=== PATIENT | female | born 1955 | race Caucasian/White ===

== ENCOUNTER → 2017-01-23 | Outpatient (CLI) | payer MEDICARE, OTHER ==
--- NOTE | 2017-01-24 08:51 | MR ---
EXAMINATION TYPE: MR cervical spine wo/w con DATE OF EXAM: 01/23/2017 5:11 PM COMPARISON: NONE HISTORY: Neck, Shoulder Pain, Headaches, x1 Year CONTRAST: The patient was injected with 20 mL intravenous MultiHance gadolinium contrast. Multiplanar MultiSpin echo imaging of the cervical spine was performed. Examination slightly limited by patient motion. C2-C3: No evidence for degenerative disc disease. No disc bulge/herniation or protrusion. No Canal stenosis. Foramina are patent bilaterally. C3-C4: No evidence for degenerative disc disease. No disc bulge/herniation or protrusion. No Canal stenosis. Foramina are patent bilaterally. C4-C5: There is mild disc desiccation. Mild posterior disc bulge. No herniation protrusion or central stenosis. Foramina are patent bilaterally. C5-C6: No evidence for degenerative disc disease. No disc bulge/herniation or protrusion. No Canal stenosis. Foramina are patent bilaterally. C6-C7:There is mild disc desiccation. Mild posterior disc bulge. No herniation protrusion or central stenosis. Foramina are patent bilaterally. C7-T1: No evidence for degenerative disc disease. No disc bulge/herniation or protrusion. No Canal stenosis. Foramina are patent bilaterally. No cervical spine fracture. There is normal alignment. Cervical spinal cord is of normal signal. C raniovertebral junction relationships are within normal limits. No pathologic enhancement. IMPRESSION: 1. Mild disc desiccation and disc bulging as noted above.
== END | disposition home or self-care (01) ==
LOC: RADMRIMAIN 15:52
PROVIDERS: ATTEND Internal Medicine
DX: M50.221 Other cervical disc displacement at C4-C5 level (principal)
CPT/HCPCS: 72156; A9577

== ENCOUNTER 2024-05-05 16:30 | Inpatient (IN) | payer MEDICARE ==
[2024-05-05 17:13] LABS: Basophils % (A) 0 %; Eosinophils # (A) 0.1 k/uL (0-0.7); Eosinophils % (A) 1 %; HCT 49.4 % (34.0-46.0); HGB 15.1 gm/dL (11.4-16.0); Hypochromasia Marked; Lymphocytes # (A) 1.2 k/uL (1.0-4.8); Lymphocytes % (A) 18 %; MCH 32.7 pg (25.0-35.0); MCHC 30.4 g/dL (31.0-37.0); MCV 107.4 fL (80.0-100.0); Macrocytosis Moderate; Mean Platelet Volume 7.5; Monocytes # (A) 0.3 k/uL (0-1.0); Monocytes % (A) 5 %; Neutrophils # (A) 5.1 k/uL (1.3-7.7); Neutrophils % (A) 75 %; Platelet Count 146 k/uL (150-450); RDW 13.2 % (11.5-15.5); WBC 6.8 k/uL (3.8-10.6)
[2024-05-05] MEDS: SODIUM CHLORIDE 0.9% 1,000 ML IV STA (17:15)
[2024-05-05] MEDS: methylPREDNISolone SOD SUCCI 125 MG/2 ML VIAL IV STA (17:16)
[2024-05-05] MEDS: AZITHROMYCIN 500 MG in SODIUM CHLORIDE 0.9% 250 ML IVPB STA (17:18)
--- NOTE | 2024-05-05 17:22 | ED ---
SOB HPI - General Chief Complaint: Shortness of Breath Stated Complaint: AIMEE Time Seen by Provider: 05/05/24 16:38 Source: patient, RN notes reviewed, old records reviewed Mode of arrival: EMS Limitations: no limitations - History of Present Illness Initial Comments: This is a 69-year-old female coming in for extreme shortness of breath she feels like she may feel warmer with fever but has increased cough and congestion and shortness of breath and presents to the ER for that. No travel history no sick contacts no other complaints MD Complaint: shortness of breath, cough -: days(s) Radiation: back Severity: moderate Severity scale (1-10): 4 Quality: dull, aching Consistency: constant Improves With: nothing Worsens With: exertion Known History Of: COPD, asthma - Related Data Home Medications Medication Instructions Recorded Confirmed Albuterol Sulfate [Albuterol 2 puff PO RT-QID PRN 05/05/24 05/05/24 Sulfate Hfa] Budesonide [Pulmicort] 0.5 mg INHALATION RT-BID 05/05/24 05/05/24 Ergocalciferol (Vitamin D2) 1,250 mcg PO Q7D 05/05/24 05/05/24 [Drisdol (50,000 Iu)] Escitalopram [Lexapro] 10 mg PO HS 05/05/24 05/05/24 Gabapentin [Neurontin] 300 mg PO TID 05/05/24 05/05/24 HYDROcodone/APAP 10-325MG [[place] 1 tab PO TID 05/05/24 05/05/24 10-325] Ipratropium-Albuterol Nebulize 3 ml INHALATION RT-TID 05/05/24 05/05/24 [Duoneb 0.5 mg-3 mg/3 ml Soln] Latanoprost [Latanoprost 0.005%] 1 drop BOTH EYES HS 05/05/24 05/05/24 Montelukast [Singulair] 10 mg PO HS 05/05/24 05/05/24 Omeprazole [PriLOSEC] 20 mg PO BID 05/05/24 05/05/24 Temazepam [Restoril] 15 mg PO HS 05/05/24 05/05/24 tiZANidine HCL 8 mg PO BID 05/05/24 05/05/24 Allergies Allergy/AdvReac Type Severity Reaction Status Date / Time No Known Allergies Allergy Verified 05/05/24 18:44 Review of Systems ROS Statement: Those systems with pertinent positive or pertinent negative responses have been documented in the HPI. ROS Other: All systems not noted in ROS Statement are negative. Past Medical History Past Medical History: Asthma, COPD, Rheumatoid Arthritis (RA) History of Any Multi-Drug Resistant Organisms: None Reported Past Surgical History: Joint Replacement, Orthopedic Surgery Past Psychological History: No Psychological Hx Reported Smoking Status: Current every day smoker Past Alcohol Use History: None Reported Past Drug Use History: Marijuana General Exam Limitations: no limitations General appearance: alert, in no apparent distress Head exam: Present: atraumatic, normocephalic, normal inspection Eye exam: Present: normal appearance, PERRL, EOMI. Absent: scleral icterus, conjunctival injection, periorbital swelling ENT exam: Present: normal exam, mucous membranes moist Neck exam: Present: normal inspection. Absent: tenderness, meningismus, lymphadenopathy Respiratory exam: Present: normal lung sounds bilaterally. Absent: respiratory distress, wheezes, rales, rhonchi, stridor Cardiovascular Exam: Present: regular rate, normal rhythm, normal heart sounds. Absent: systolic murmur, diastolic murmur, rubs, gallop, clicks GI/Abdominal exam: Present: soft, normal bowel sounds. Absent: distended, tenderness, guarding, rebound, rigid Extremities exam: Present: normal inspection, full ROM, normal capillary refill. Absent: tenderness, pedal edema, joint swelling, calf tenderness Back exam: Present: normal inspection Neurological exam: Present: alert, oriented X3, CN II-XII intact Psychiatric exam: Present: normal affect, normal mood Skin exam: Present: warm, dry, intact, normal color. Absent: rash Course Vital Signs 05/05/24 05/05/24 05/05/24 16:48 17:53 18:18 Temperature 98 F Pulse Rate 93 90 97 Respiratory 26 H 20 Rate Blood Pressure 134/74 134/84 O2 Sat by Pulse 88 L 94 L Oximetry 05/05/24 05/05/24 05/05/24 18:30 19:09 19:18 Temperature Pulse Rate 96 96 100 Respiratory 20 Rate Blood Pressure 150/100 O2 Sat by Pulse 94 L Oximetry 10/06/24 10/06/24 10/07/24 21:14 22:28 00:58 Temperature Pulse Rate 90 94 100 Respiratory 24 20 Rate Blood Pressure 150/100 160/88 O2 Sat by Pulse 94 L 90 L 92 L Oximetry 05/06/24 05/06/24 05/06/24 02:45 04:00 06:12 Temperature Pulse Rate 90 92 82 Respiratory 22 20 20 Rate Blood Pressure 171/95 168/110 152/74 O2 Sat by Pulse 91 L 94 L 94 L Oximetry 05/06/24 05/06/24 05/06/24 08:46 08:58 10:18 Temperature 98.5 F Pulse Rate 86 84 93 Respiratory 18 18 20 Rate Blood Pressure 149/89 O2 Sat by Pulse 94 L Oximetry 05/06/24 05/06/24 05/06/24 11:52 12:02 12:16 Temperature Pulse Rate 90 90 95 Respiratory 18 18 20 Rate Blood Pressure 142/74 O2 Sat by Pulse 92 L Oximetry 05/06/24 05/06/24 05/06/24 16:17 19:19 20:05 Temperature Pulse Rate 81 87 80 Respiratory 22 18 Rate Blood Pressure 153/64 138/72 O2 Sat by Pulse 94 L 89 L Oximetry 05/06/24 20:24 Temperature Pulse Rate 87 Respiratory Rate Blood Pressure O2 Sat by Pulse Oximetry - Reevaluation(s) Reevaluation #1: 05/05/24 17:22 Medical records reviewed Reevaluation #2: 05/05/24 17:22 Patient symptoms mildly improved Reevaluation #3: 05/05/24 17:37 Patient has no improvement here in the ER Reevaluation #4: 05/05/24 17:22 Was pt. sent in by a medical professional or institution (, PA, [employer], urgent care, hospital, or usp...) When possible be specific @ -no Did you speak to anyone other than the patient for history (EMS, parent, family, police, friend...)? What history was obtained from this source @ -no Did you review nursing and triage notes (agree or disagree)? Why? @ -agree Are old charts reviewed (outside hosp., previous admission, EMS record, old EKG, old radiological studies, urgent care reports/EKG's, usp records)? Report findings @ -yes Differential Diagnosis (chest pain, altered mental status, abdominal pain women, abdominal pain men, vaginal bleeding, weakness, fever, dyspnea, syncope, headache, dizziness, GI bleed, back pain, seizure, CVA, palpatations, mental health, musculoskeletal)? @ -prior EKG interpreted by me (3pts min.). @ -yes X-rays interpreted by me (1pt min.). @ -yes negative for acute disease CT interpreted by me (1pt min.). @ -no U/S interpreted by me (1pt. min.). @ -no What testing was considered but not performed or refused? (CT, X-rays, U/S, labs)? Why? @ -none What meds were considered but not given or refused? Why? @ -none Did you discuss the management of the patient with other professionals (professionals i.e. , PA, [employer], lab, RT, psych nurse, social economist, wiener packer, teacher, special technical operations officer, case management assistant)? Give summary @ -no Was smoking cessation discussed for >3mins.? @ -no Was critical care preformed (if so, how long)? @ -yes31 Were there social determinants of health that impacted care today? How? (Homelessness, low income, unemployed, alcoholism, drug addiction, transportation, low edu. Level, literacy, decrease access to med. care, shelter, rehab)? @ -none Was there de-escalation of care discussed even if they declined (Discuss DNR or withdrawal of care, Hospice)? DNR status @ -no What co-morbidities impacted this encounter? (DM, HTN, Smoking, COPD, CAD, Cancer, CVA, ARF, Chemo, Hep., AIDS, mental health diagnosis, sleep apnea, morbid obesity)? @ -none Was patient admitted / discharged? Hospital course, mention meds given and route, prescriptions, significant lab abnormalities, going to OR and other pertinent info. @ - 69 female to be admitted for multifactorial respiratory failure COPD CHF with hypoxia Admitted Undiagnosed new problem with uncertain prognosis? @ -no Drug Therapy requiring intensive monitoring for toxicity (Heparin, Nitro, Insulin, Cardizem)? @ -no Were any procedures done? @ -no Diagnosis/symptom? @ -significant respiratory distress and COPD Acute, or Chronic, or Acute on Chronic? @ -Acute Uncomplicated (without systemic symptoms) or Complicated (systemic symptoms)? @ -Complicated Side effects of treatment? @ -no Exacerbation, Progression, or Severe Exacerbation? @ -exacerbation Poses a threat to life or bodily function? How? (Chest pain, [place], [place], pneumonia, PE, COPD, DKA, ARF, appy, cholecystitis, CVA, Diverticulitis, Homicidal, Suicidal, threat to staff... and all critical care pts) @ -yes respiratory distress Reevaluation #5: Differential Dyspnea: Coronary syndrome, arrhythmia, tamponade, asthma, COPD, pulmonary embolism, pneumonia, pneumothorax, pulmonary effusion, anaphylaxis, diabetic ketoacidosis, flailed chest, pulmonary contusion, diaphragmatic rupture, anemia, neuromuscular, this is not meant to be an all-inclusive list. - Consultations Consultation #1: Spoke with Dr. Bryant who agrees to admit the patient Medical Decision Making - Medical Decision Making 69 female to be admitted for multifactorial respiratory failure COPD CHF with hypoxia - Lab Data Result diagrams: 05/11/24 03:39 05/11/24 03:39 Lab Results 05/05/24 05/05/24 05/05/24 Range/Units 16:55 16:59 16:59 WBC 6.8 (3.8-10.6) k/uL RBC 4.60 (3.80-5.40) m/uL Hgb 15.1 (11.4-16.0) gm/dL Hct 49.4 H (34.0-46.0) % MCV 107.4 H (80.0-100.0) fL MCH 32.7 (25.0-35.0) pg MCHC 30.4 L (31.0-37.0) g/dL RDW 13.2 (11.5-15.5) % Plt Count 146 L (150-450) k/uL MPV 7.5 Neutrophils % 75 % Lymphocytes % 18 % Monocytes % 5 % Eosinophils % 1 % Basophils % 0 % Neutrophils # 5.1 (1.3-7.7) k/uL Lymphocytes # 1.2 (1.0-4.8) k/uL Monocytes # 0.3 (0-1.0) k/uL Eosinophils # 0.1 (0-0.7) k/uL Basophils # 0.0 (0-0.2) k/uL Hypochromasia Marked Macrocytosis Moderate PT 11.0 (10.0-12.5) sec INR 1.0 (<1.2) APTT 25.5 (22.0-30.0) sec Sodium (137-145) mmol/L Potassium (3.5-5.1) mmol/L Chloride (98-107) mmol/L Carbon Dioxide (22-30) mmol/L Anion Gap mmol/L BUN (7-17) mg/dL Creatinine (0.52-1.04) mg/dL Est GFR (CKD-EPI)AfAm (>60 ml/min/1.73 sqM) Est GFR (CKD-EPI)NonAf (>60 ml/min/1.73 sqM) Glucose (74-99) mg/dL Plasma Lactic Acid Atul (0.7-2.0) mmol/L Calcium (8.4-10.2) mg/dL Magnesium (1.6-2.3) mg/dL Total Bilirubin (0.2-1.3) mg/dL AST (14-36) U/L ALT (4-34) U/L Alkaline Phosphatase (38-126) U/L Troponin I (0.000-0.034) ng/mL NT-Pro-B Natriuret Pep pg/mL Total Protein (6.3-8.2) g/dL Albumin (3.5-5.0) g/dL Influenza Type A (PCR) Not Detected (Not Detectd) Influenza Type B (PCR) Not Detected (Not Detectd) RSV (PCR) Not Detected (Not Detectd) SARS-CoV-2 (PCR) Not Detected (Not Detectd) 05/05/24 05/05/24 05/05/24 Range/Units 16:59 16:59 16:59 WBC (3.8-10.6) k/uL RBC (3.80-5.40) m/uL Hgb (11.4-16.0) gm/dL Hct (34.0-46.0) % MCV (80.0-100.0) fL MCH (25.0-35.0) pg MCHC (31.0-37.0) g/dL RDW (11.5-15.5) % Plt Count (150-450) k/uL MPV Neutrophils % % Lymphocytes % % Monocytes % % Eosinophils % % Basophils % % Neutrophils # (1.3-7.7) k/uL Lymphocytes # (1.0-4.8) k/uL Monocytes # (0-1.0) k/uL Eosinophils # (0-0.7) k/uL Basophils # (0-0.2) k/uL Hypochromasia Macrocytosis PT (10.0-12.5) sec INR (<1.2) APTT (22.0-30.0) sec Sodium 137 (137-145) mmol/L Potassium 4.5 (3.5-5.1) mmol/L Chloride 94 L (98-107) mmol/L Carbon Dioxide 41 H* (22-30) mmol/L Anion Gap 2 mmol/L BUN 5 L (7-17) mg/dL Creatinine 0.45 L (0.52-1.04) mg/dL Est GFR (CKD-EPI)AfAm >90 (>60 ml/min/1.73 sqM) Est GFR (CKD-EPI)NonAf >90 (>60 ml/min/1.73 sqM) Glucose 110 H (74-99) mg/dL Plasma Lactic Acid Atul 0.9 (0.7-2.0) mmol/L Calcium 8.7 (8.4-10.2) mg/dL Magnesium 1.7 (1.6-2.3) mg/dL Total Bilirubin 0.7 (0.2-1.3) mg/dL AST 26 (14-36) U/L ALT 10 (4-34) U/L Alkaline Phosphatase 80 (38-126) U/L Troponin I <0.012 (0.000-0.034) ng/mL NT-Pro-B Natriuret Pep 581 pg/mL Total Protein 6.0 L (6.3-8.2) g/dL Albumin 3.4 L (3.5-5.0) g/dL Influenza Type A (PCR) (Not Detectd) Influenza Type B (PCR) (Not Detectd) RSV (PCR) (Not Detectd) SARS-CoV-2 (PCR) (Not Detectd) - EKG Data -: EKG Interpreted by Me (EKG is sinus 90 VA 162 QRS 92 QTc 403) - Radiology Data Radiology results: report reviewed (Chest x-ray positive for positive for CHF), image reviewed Critical Care Time Critical Care Time: Yes Total Critical Care Time: 31 Disposition Clinical Impression: Acute exacerbation of chronic obstructive pulmonary disease, Acute respiratory failure, Congestive heart failure, Acute pulmonary edema Disposition: ADMITTED IP TO THIS HOSP Condition: Serious Is patient prescribed a controlled substance at d/c from ED?: No Time of Disposition: 17:25
[2024-05-05 17:25] LABS: Partial Thromboplastin Time 25.5 sec (22.0-30.0)
[2024-05-05 17:26] LABS: ALT 10 U/L (4-34); AST 26 U/L (14-36); African American GFR (CKD) >90 (>60 ml/min/1.73 sqM); Albumin 3.4 g/dL (3.5-5.0); Alkaline Phosphatase 80 U/L (38-126); Blood Urea Nitrogen 5 mg/dL (7-17); Calcium 8.7 mg/dL (8.4-10.2); Chloride 94 mmol/L (98-107); Glucose 110 mg/dL (74-99); Magnesium 1.7 mg/dL (1.6-2.3); Non-African American GFR(CKD) >90 (>60 ml/min/1.73 sqM); Potassium 4.5 mmol/L (3.5-5.1); Sodium 137 mmol/L (137-145); Total Bilirubin 0.7 mg/dL (0.2-1.3)
[2024-05-05 17:32] LABS: Anion Gap 2 mmol/L
[2024-05-05 17:33] LABS: Carbon Dioxide 41 mmol/L (22-30)
--- NOTE | 2024-05-05 17:33 | XR ---
EXAMINATION TYPE: XR chest 1V portable DATE OF EXAM: 05/05/2024 5:26 PM CLINICAL INDICATION: Female, 69 years old with history of sob; COMPARISON: Chest radiographs from 08/30/2013 TECHNIQUE: XR chest 1V portable Frontal view of the chest. FINDINGS: Lungs/Pleura: There is no evidence of pleural effusion, focal consolidation, or pneumothorax. Pulmonary vascularity: Pulmonary vascular congestion. Heart/mediastinum: Cardiomediastinal silhouette is enlarged. Musculoskeletal: No acute osseous pathology. IMPRESSION: Cardiomegaly and mild pulmonary vascular congestion. Correlate with BNP for congestive heart failure. [facility], , 05/05/2024 5:31 PM
[2024-05-05 17:34] LABS: NT-Pro-B-Type Natriuretic Pept 581 pg/mL
[2024-05-05] MEDS ORDERED: MORPHINE SULFATE 4 MG/ML SYRINGE IV PRN (17:35)
[2024-05-05] MEDS ORDERED: NALOXONE 0.4 MG/ML 1 ML VIAL IVP PRN (17:35)
[2024-05-05] MEDS ORDERED: ONDANSETRON 4 MG/2 ML VIAL IVP PRN (17:35)
[2024-05-05] MEDS ORDERED: NALOXONE 0.4 MG/ML 1 ML VIAL IV PRN (17:35)
[2024-05-05] MEDS: FUROSEMIDE 10 MG/ML 4 ML VIAL IV SCH (18:00)
[2024-05-05] MEDS: SODIUM CHLORIDE 0.9% 1,000 ML IV SCH (18:01)
[2024-05-05] MEDS: IPRATROPIUM 0.5 MG/2.5 ML NEBU INHALATION STA (18:18)
[2024-05-05] MEDS: ALBUTEROL NEBULIZED 2.5 MG/3 ML INHALATION STA (18:18)
[2024-05-05] MEDS: IPRATROPIUM-ALBUTEROL 3 ML NEB INHALATION SCH (19:10)
[2024-05-05] MEDS ORDERED: IPRATROPIUM-ALBUTEROL 3 ML NEB INHALATION SCH (20:00)
[2024-05-06] MEDS: methylPREDNISolone SOD SUCCI 125 MG/2 ML VIAL IV SCH ×2 (03:07→03:14)
--- NOTE | 2024-05-06 04:30 | P.CNPUL ---
History of Present Illness Consult date: 05/06/24 Requesting physician: Lucian Marx Reason for consult: COPD Chief complaint: Shortness of breath and cough History of present illness: Patient is a 69-year-old white female with past medical history significant for asthma/COPD, current everyday smoker, GERD. Her primary care provider is Dr. Jovel. She does have history of oxygen dependent COPD. Previously followed with Dr. Renate Lopez, but not currently following with any detective homicide squad. She is normally maintained on 2 to 3 L of nasal cannula 20/02. She is being evaluated in the emergency department. She is sitting up in the bedside recliner. Alert and oriented. She is resting comfortably on 3 L/min nasal cannula. No signs of CO2 narcosis. She feels that her asthma/COPD is active. Over the last 3 days she has had progressively worsening shortness of breath. Denies fevers. Denies URI-like symptoms. She has a congested cough which is mostly nonproductive. Denies chest pain. Denies hemoptysis. She continues to smoke approximately 1/2 pack/day. Viral screen negative for COVID, influenza, RSV. Denies sick contacts. Chest x-ray showing cardiomegaly and possible mild pulmonary vascular congestion. NT proBNP was only 581. She was initiated on Lasix 40 mg twice daily in the emergency department. Troponin less than 0.012. EKG: Normal sinus rhythm, 90 bpm, no acute ischemic changes. Denies chest pain or increased lower extremity swelling. Endorses orthopnea. CBC: WBC count 6.8, hemoglobin 15.1, hematocrit 49.4, platelets 146. CMP: Sodium 137, potassium 4.5, chloride 94, serum bicarb 41, BUN 5, creatinine 0.45, glucose 110. Lactic 0.9. LFTs unremarkable. Hemodynamics are fairly stable. Blood pressure hypertensive. Review of Systems Constitutional: Reports chronic pain, Denies chills, Denies fever, Denies night sweats, Denies poor appetite, Denies weight gain, Denies weight loss Ears, nose, mouth and throat: Denies headache, Denies nasal congestion, Denies nasal discharge, Denies post-nasal drip, Denies sinus pain, Denies sinus pressure, Denies sore throat Cardiovascular: Reports orthopnea, Denies chest pain, Denies leg edema, Denies palpitations, Denies paroxysmal nocturnal dyspnea, Denies syncope Respiratory: Reports as per HPI Gastrointestinal: Denies abdominal pain, Denies change in bowel habits, Denies diarrhea, Denies nausea Genitourinary: Denies dysuria Musculoskeletal: Denies limitation of motion Integumentary: Denies rash Neurological: Denies confusion, Denies headaches, Denies seizures, Denies syncope, Denies visual changes Psychiatric: Denies anxiety, Denies depression Past Medical History Past Medical History: Asthma, COPD, Rheumatoid Arthritis (RA) History of Any Multi-Drug Resistant Organisms: None Reported Past Surgical History: Joint Replacement, Orthopedic Surgery Past Psychological History: No Psychological Hx Reported Smoking Status: Current every day smoker Past Alcohol Use History: None Reported Past Drug Use History: Marijuana Medications and Allergies Home Medications Medication Instructions Recorded Confirmed Type Albuterol Sulfate [Albuterol 2 puff PO RT-QID PRN 05/05/24 05/05/24 History Sulfate Hfa] Budesonide [Pulmicort] 0.5 mg INHALATION RT-BID 05/05/24 05/05/24 History Ergocalciferol (Vitamin D2) 1,250 mcg PO Q7D 05/05/24 05/05/24 History [Drisdol (50,000 Iu)] Escitalopram [Lexapro] 10 mg PO HS 05/05/24 05/05/24 History Gabapentin [Neurontin] 300 mg PO TID 05/05/24 05/05/24 History HYDROcodone/APAP 10-325MG [[place] 1 tab PO TID 05/05/24 05/05/24 History 10-325] Ipratropium-Albuterol Nebulize 3 ml INHALATION RT-TID 05/05/24 05/05/24 History [Duoneb 0.5 mg-3 mg/3 ml Soln] Latanoprost [Latanoprost 0.005%] 1 drop BOTH EYES HS 05/05/24 05/05/24 History Montelukast [Singulair] 10 mg PO HS 05/05/24 05/05/24 History Omeprazole [PriLOSEC] 20 mg PO BID 05/05/24 05/05/24 History Temazepam [Restoril] 15 mg PO HS 05/05/24 05/05/24 History tiZANidine HCL 8 mg PO BID 05/05/24 05/05/24 History Allergies Allergy/AdvReac Type Severity Reaction Status Date / Time No Known Allergies Allergy Verified 05/05/24 18:44 Physical Exam Vitals: Vital Signs Temp Pulse Resp BP Pulse Ox 05/06/24 02:45 90 22 171/95 91 L 05/06/24 00:58 100 20 160/88 92 L 05/05/24 22:28 94 24 150/100 90 L 05/05/24 21:14 90 94 L 05/05/24 19:18 100 20 150/100 94 L 05/05/24 19:09 96 05/05/24 18:30 96 05/05/24 18:18 97 05/05/24 17:53 90 20 134/84 94 L 05/05/24 16:48 98 F 93 26 H 134/74 88 L Intake and Output 05/05/24 05/05/24 05/06/24 14:59 22:59 06:59 Other: Weight 96.162 kg GENERAL EXAM: Alert, 69-year-old morbidly obese female, sitting up in bedside recliner, comfortable in no apparent distress. HEAD: Normocephalic and atraumatic EYES: Normal reaction of pupils, equal size. NOSE: Clear with pink turbinates. THROAT: No erythema or exudates. NECK: No masses, no JVD. CHEST: No chest wall deformity. LUNGS: Equal air entry with wheezing and rhonchi heard bilaterally and throughout. On 3 L/min nasal cannula. No conversational dyspnea or accessory muscle use.. CVS: S1 and S2 normal with no audible murmur, regular rhythm. No extra heart sounds ABDOMEN: No hepatosplenomegaly, active bowel sounds, no guarding or rigidity. SPINE: No scoliosis or deformity SKIN: No rashes CENTRAL NERVOUS SYSTEM: No focal deficits, tone is normal in all 4 extremities. EXTREMITIES: There is no peripheral edema, clubbing, or cyanosis. Peripheral pulses are intact. Results - Laboratory Findings CBC and BMP: 05/05/24 16:59 05/05/24 16:59 PT/INR, D-dimer PT 11.0 sec (10.0-12.5) 05/05/24 16:59 INR 1.0 (<1.2) 05/05/24 16:59 Abnormal lab findings: Abnormal Labs 05/05/24 05/05/24 16:59 16:59 Hct 49.4 H MCV 107.4 H MCHC 30.4 L Plt Count 146 L Chloride 94 L Carbon Dioxide 41 H* BUN 5 L Creatinine 0.45 L Glucose 110 H Total Protein 6.0 L Albumin 3.4 L - Diagnostic Findings Chest x-ray: image reviewed Assessment and Plan Assessment: Acute COPD exacerbation Possible exacerbation of congestive heart failure, unknown type; chest x-ray showing cardiomegaly and possible mild pulmonary vascular congestion. NT proBNP only mildly elevated at 581. Acute on chronic hypoxemic respiratory failure, secondary to above Chronic hypoxemic respiratory failure, normally maintained on 2 to 3 L on an outpatient basis Chronic ongoing tobacco dependence, with over [id number] history Hypertension History of GERD Morbid obesity, with BMI of 35.3 kg/m Plan: Patient's medications, labs, chest x-ray reviewed Continue on supplemental oxygen to maintain oxygen saturation of 92% or greater Continue combination of DuoNebs [id number], Symbicort inhaler, and IV Solu-Medrol Viral screen negative for influenza, RSV, COVID. Received an empiric dose of azithromycin in the emergency department, will continue for now. Check procalcitonin level Smoking cessation counseling performed, greater than 10 minutes Nicotine patch offered Cardiology also consulted for heart failure. Currently receiving diuretics in the form of Lasix 40 mg twice daily We will also continue to follow I have personally seen and examined the patient, performed the documentation and the assessment and plan as written. Number of minutes spent on the visit:20 Time with Patient: Greater than 30
[2024-05-06 07:14] LABS: Basophils % (A) 1 %; Eosinophils % (A) 0 %; HCT 54.5 % (34.0-46.0); HGB 17.2 gm/dL (11.4-16.0); Hypochromasia Moderate; Lymphocytes # (A) 0.7 k/uL (1.0-4.8); Lymphocytes % (A) 18 %; MCH 33.2 pg (25.0-35.0); MCHC 31.5 g/dL (31.0-37.0); MCV 105.6 fL (80.0-100.0); Macrocytosis Moderate; Mean Platelet Volume 7.8; Monocytes # (A) 0.2 k/uL (0-1.0); Monocytes % (A) 4 %; Neutrophils % (A) 77 %; Platelet Count 146 k/uL (150-450); RBC 5.16 m/uL (3.80-5.40); RDW 13.6 % (11.5-15.5); WBC 3.9 k/uL (3.8-10.6)
[2024-05-06 07:16] LABS: ALT 12 U/L (4-34); AST 22 U/L (14-36); African American GFR (CKD) >90 (>60 ml/min/1.73 sqM); Albumin 3.9 g/dL (3.5-5.0); Alkaline Phosphatase 76 U/L (38-126); Blood Urea Nitrogen 7 mg/dL (7-17); Calcium 9.1 mg/dL (8.4-10.2); Chloride 91 mmol/L (98-107); Glucose 124 mg/dL (74-99); Magnesium 1.7 mg/dL (1.6-2.3); Non-African American GFR(CKD) >90 (>60 ml/min/1.73 sqM); Phosphorus 3.7 mg/dL (2.5-4.5); Potassium 4.9 mmol/L (3.5-5.1); Sodium 140 mmol/L (137-145); Total Bilirubin 0.6 mg/dL (0.2-1.3); Total Protein 6.8 g/dL (6.3-8.2)
[2024-05-06 07:23] LABS: Anion Gap 0 mmol/L
[2024-05-06 07:55] LABS: Carbon Dioxide 49 mmol/L (22-30)
[2024-05-06] MEDS: AZITHROMYCIN 500 MG TAB PO SCH (08:23)
[2024-05-06] MEDS: NICOTINE 21MG/24HR PATCH TRANSDERM SCH (08:23)
[2024-05-06] MEDS: SYMBICORT 160-4.5 MCG INHALER INHALATION SCH (08:45)
--- NOTE | 2024-05-06 09:31 | P.CRDCN ---
History of Present Illness Consult date: 05/06/24 History of present illness: HISTORY OF PRESENTING ILLNESS 62-year-old female with past medical history of asthma, COPD, follows up with Dr. Jovel and Dr. Renate Lopez. Patient is on 2 to 3 L of oxygen at home. She presented to the hospital because of 2 to 3 days of worsening shortness of breath increased cough. She denies any URI type symptoms. Her viral screen was negative, chest x-ray showed cardiomegaly with mild pulmonary congestion. Labs did not show any elevated troponin. Her BNP was slightly elevated at 581. Her ECG shows normal sinus rhythm, heart rate 90 with no significant acute ischemic changes at rest. REVIEW OF SYSTEMS 14 point review of system is negative except what is mentioned above in HPI. PHYSICAL EXAMINATION Vital signs reviewed. Head: Normocephalic. Eyes: Sclerae nonicteric. Neck: Brisk carotid upstroke, no jugular venous distention. Lungs: Mild crackles and wheezing audible in bilateral lung smith. Heart: Regular rate and rhythm, S1-S2, no S3, no murmur or rub. Abdomen: Soft nontender, positive bowel sounds. Extremities: No edema, intact distal pulses. Neuro: Alert, oritented, no focal deficits. Detailed neuro exam was not performed. ASSESSMENT Acute on chronic hypoxic respiratory failure Acute on chronic hypercapnic respiratory failure Acute COPD exacerbation Cardiomegaly with elevated NT proBNP however no nuchal signs of congestive heart failure Tobacco smoker, half pack per day Obesity PLAN At this time patient does not seem to have any acute ischemic changes. She does not have acute coronary syndrome. She does not appear volume overloaded however she has mildly elevated BNP and cardiomegaly. For this I will obtain an echocardiogram. I would recommend to obtain a stress test preferably a Lexiscan nuclear stress test on her on an outpatient basis. If patient's echocardiogram is within normal limits, I will clear her from cardiac standpoint but would still recommend outpatient follow- up. Discontinue IV Lasix and IV fluids. Encourage p.o. intake Recommended to stop smoking Obtain TSH, HbA1c, lipid panel Recommend outpatient sleep study evaluation Sixto Wharton MD, FACC, RPVI Thank you for allowing [facility] to participate in this patient's care. Feel free to reach out in case of any followup questions. Past Medical History Past Medical History: Asthma, COPD, Rheumatoid Arthritis (RA) History of Any Multi-Drug Resistant Organisms: None Reported Past Surgical History: Joint Replacement, Orthopedic Surgery Past Psychological History: No Psychological Hx Reported Smoking Status: Current every day smoker Past Alcohol Use History: None Reported Past Drug Use History: Marijuana Medications and Allergies Home Medications Medication Instructions Recorded Confirmed Type Albuterol Sulfate [Albuterol 2 puff PO RT-QID PRN 05/05/24 05/05/24 History Sulfate Hfa] Budesonide [Pulmicort] 0.5 mg INHALATION RT-BID 05/05/24 05/05/24 History Ergocalciferol (Vitamin D2) 1,250 mcg PO Q7D 05/05/24 05/05/24 History [Drisdol (50,000 Iu)] Escitalopram [Lexapro] 10 mg PO HS 05/05/24 05/05/24 History Gabapentin [Neurontin] 300 mg PO TID 05/05/24 05/05/24 History HYDROcodone/APAP 10-325MG [[place] 1 tab PO TID 05/05/24 05/05/24 History 10-325] Ipratropium-Albuterol Nebulize 3 ml INHALATION RT-TID 05/05/24 05/05/24 History [Duoneb 0.5 mg-3 mg/3 ml Soln] Latanoprost [Latanoprost 0.005%] 1 drop BOTH EYES HS 05/05/24 05/05/24 History Montelukast [Singulair] 10 mg PO HS 05/05/24 05/05/24 History Omeprazole [PriLOSEC] 20 mg PO BID 05/05/24 05/05/24 History Temazepam [Restoril] 15 mg PO HS 05/05/24 05/05/24 History tiZANidine HCL 8 mg PO BID 05/05/24 05/05/24 History Allergies Allergy/AdvReac Type Severity Reaction Status Date / Time No Known Allergies Allergy Verified 05/05/24 18:44 Physical Exam Vitals: Vital Signs Temp Pulse Resp BP Pulse Ox 05/06/24 08:58 84 18 05/06/24 08:46 86 18 05/06/24 06:12 82 20 152/74 94 L 05/06/24 04:00 92 20 168/110 94 L 05/06/24 02:45 90 22 171/95 91 L 05/06/24 00:58 100 20 160/88 92 L 05/05/24 22:28 94 24 150/100 90 L 05/05/24 21:14 90 94 L 05/05/24 19:18 100 20 150/100 94 L 05/05/24 19:09 96 05/05/24 18:30 96 05/05/24 18:18 97 05/05/24 17:53 90 20 134/84 94 L 05/05/24 16:48 98 F 93 26 H 134/74 88 L Intake and Output 05/05/24 05/06/24 05/06/24 22:59 06:59 14:59 Other: Weight 96.162 kg Results 05/06/24 06:48 05/06/24 06:48 Cardiac Enzymes 05/05/24 05/05/24 05/06/24 Range/Units 16:59 16:59 06:48 AST 26 22 (14-36) U/L Troponin I <0.012 (0.000-0.034) ng/mL Coagulation 05/05/24 Range/Units 16:59 PT 11.0 (10.0-12.5) sec APTT 25.5 (22.0-30.0) sec CBC 05/05/24 05/06/24 Range/Units 16:59 06:48 WBC 6.8 3.9 (3.8-10.6) k/uL RBC 4.60 5.16 (3.80-5.40) m/uL Hgb 15.1 17.2 H (11.4-16.0) gm/dL Hct 49.4 H 54.5 H (34.0-46.0) % Plt Count 146 L 146 L (150-450) k/uL Comprehensive Metabolic Panel 05/05/24 05/06/24 Range/Units 16:59 06:48 Sodium 137 140 (137-145) mmol/L Potassium 4.5 4.9 (3.5-5.1) mmol/L Chloride 94 L 91 L (98-107) mmol/L Carbon Dioxide 41 H* 49 H* (22-30) mmol/L BUN 5 L 7 (7-17) mg/dL Creatinine 0.45 L 0.52 (0.52-1.04) mg/dL Glucose 110 H 124 H (74-99) mg/dL Calcium 8.7 9.1 (8.4-10.2) mg/dL AST 26 22 (14-36) U/L ALT 10 12 (4-34) U/L Alkaline Phosphatase 80 76 (38-126) U/L Total Protein 6.0 L 6.8 (6.3-8.2) g/dL Albumin 3.4 L 3.9 (3.5-5.0) g/dL Current Medications Generic Name Dose Route Start Last Admin Trade Name Freq PRN Reason Stop Dose Admin Albuterol/Ipratropium 3 ml 05/05/24 20:00 05/06/24 08:45 Ipratropium-Albuterol 3 Ml Neb INHALATION 3 ml RT-QID ZACH Administration Azithromycin 500 mg 05/06/24 09:00 05/06/24 08:23 Azithromycin 500 Mg Tab PO 05/08/24 09:01 500 mg DAILY ZACH Administration Protocol Budesonide/Formoterol Fumarate 2 puff 05/06/24 08:00 05/06/24 08:45 Symbicort 160-4.5 Mcg Inhaler INHALATION 2 puff RT-BID ZACH Administration Methylprednisolone Sodium Succinate 60 mg 05/06/24 00:00 05/06/24 05:47 Methylprednisolone Sod Succi 125 Mg/2 Ml Vial IV 60 mg Q6HR ZACH Administration Morphine Sulfate 4 mg 05/05/24 17:35 Morphine Sulfate 4 Mg/Ml Syringe IV Q4HR PRN Severe Pain (Scale 7 to 10) Naloxone HCl 0.2 mg 05/05/24 17:35 Naloxone 0.4 Mg/Ml 1 Ml Vial IV Q2M PRN Opioid Reversal Naloxone HCl 0.2 mg 05/05/24 17:35 Naloxone 0.4 Mg/Ml 1 Ml Vial IVP Q2M PRN Opioid Reversal Nicotine 1 patch 05/06/24 09:00 05/06/24 08:23 Nicotine 21mg/24hr Patch TRANSDERM 1 patch DAILY ZACH Administration Ondansetron HCl 4 mg 05/05/24 17:35 Ondansetron 4 Mg/2 Ml Vial IVP Q8HR PRN Nausea And Vomiting Intake and Output 05/05/24 05/06/24 05/06/24 22:59 06:59 14:59 Other: Weight 96.162 kg 05/06/24 06:48 05/06/24 06:48
[2024-05-06] MEDS: ERGOCALCIFEROL 1,250 MCG (50,000 IU) CAPSULE PO SCH (10:23)
[2024-05-06] MEDS: IPRATROPIUM-ALBUTEROL 3 ML NEB INHALATION SCH (11:52)
[2024-05-06] MEDS: HYDROcodone/APAP 10-325MG 1 EACH TAB PO SCH (15:07)
[2024-05-06] MEDS: GABAPENTIN 300 MG CAP PO SCH (15:08)
--- NOTE | 2024-05-06 19:06 | P.HPIM ---
History of Present Illness H&P Date: 05/06/24 Fern Nickerson, is a 69-year-old female who presented to [facility] emergency room with a chief complaint of worsening shortness of breath She was evaluated in the emergency room vital examination on presentation revealed a temperature of 98 pulse 93 respiration 26 blood pressure 134/74 pulse ox 88% on 3 L nasal cannula Laboratory data reveals a white blood count of 6.8 hemoglobin 15.1 platelet count 146 BUN 5 creatinine 0.45 Testing in the emergency room revealed EKG revealed sinus rhythm normal EKG, chest x-ray revealed cardiomegaly with pulmonary vascular congestion Patient was admitted to medical floor for further evaluation and treatment Past medical history is significant for underlying history of COPD, history of chronic hypoxic and hypercapnic respiratory failure history of asthma, history of rheumatoid arthritis, history of osteoarthritis, prolonged history of tobacco use. On review of systems patient is alert and oriented x 3 in no apparent distress she denies any fever or chills no headache or dizziness no chest pain she stated that she is having shortness of breath with any activity no palpitation no cough no sputum production no nausea or vomiting no abdominal pain no diarrhea no blood in the stools, she has frequency and urgency with urination no hematuria. Past Medical History Past Medical History: Asthma, COPD, Rheumatoid Arthritis (RA) History of Any Multi-Drug Resistant Organisms: None Reported Past Surgical History: Joint Replacement, Orthopedic Surgery Past Psychological History: No Psychological Hx Reported Smoking Status: Current every day smoker Past Alcohol Use History: None Reported Past Drug Use History: Marijuana Medications and Allergies Home Medications Medication Instructions Recorded Confirmed Type Albuterol Sulfate [Albuterol 2 puff PO RT-QID PRN 05/05/24 05/05/24 History Sulfate Hfa] Budesonide [Pulmicort] 0.5 mg INHALATION RT-BID 05/05/24 05/05/24 History Ergocalciferol (Vitamin D2) 1,250 mcg PO Q7D 05/05/24 05/05/24 History [Drisdol (50,000 Iu)] Escitalopram [Lexapro] 10 mg PO HS 05/05/24 05/05/24 History Gabapentin [Neurontin] 300 mg PO TID 05/05/24 05/05/24 History HYDROcodone/APAP 10-325MG [[place] 1 tab PO TID 05/05/24 05/05/24 History 10-325] Ipratropium-Albuterol Nebulize 3 ml INHALATION RT-TID 05/05/24 05/05/24 History [Duoneb 0.5 mg-3 mg/3 ml Soln] Latanoprost [Latanoprost 0.005%] 1 drop BOTH EYES HS 05/05/24 05/05/24 History Montelukast [Singulair] 10 mg PO HS 05/05/24 05/05/24 History Omeprazole [PriLOSEC] 20 mg PO BID 05/05/24 05/05/24 History Temazepam [Restoril] 15 mg PO HS 05/05/24 05/05/24 History tiZANidine HCL 8 mg PO BID 05/05/24 05/05/24 History Allergies Allergy/AdvReac Type Severity Reaction Status Date / Time No Known Allergies Allergy Verified 05/05/24 18:44 Physical Exam Vitals: Vital Signs Temp Pulse Resp BP Pulse Ox 05/06/24 06:12 82 20 152/74 94 L 05/06/24 04:00 92 20 168/110 94 L 05/06/24 02:45 90 22 171/95 91 L 05/06/24 00:58 100 20 160/88 92 L 05/05/24 22:28 94 24 150/100 90 L 05/05/24 21:14 90 94 L 05/05/24 19:18 100 20 150/100 94 L 05/05/24 19:09 96 05/05/24 18:30 96 05/05/24 18:18 97 05/05/24 17:53 90 20 134/84 94 L 05/05/24 16:48 98 F 93 26 H 134/74 88 L Intake and Output 05/05/24 05/06/24 05/06/24 22:59 06:59 14:59 Other: Weight 96.162 kg In general patient is alert and oriented x 3 in no distress HEENT head normocephalic and atraumatic Neck is supple no JVD no goiter no lymphadenopathy no carotid bruit Chest examination reveals a scattered crackles bilaterally with wheezing and prolonged expiratory phase Cardiac exam reveals regular heart sounds S1 and S2 no gallops no murmurs Abdomen is soft nontender no organomegaly with normal bowel sounds Extremity exam reveals no edema no cyanosis or clubbing Neurological examination reveals no gross focal deficits Results CBC & Chem 7: 05/06/24 06:48 05/06/24 06:48 Labs: Abnormal Lab Results - Last 24 Hours (Table) 05/05/24 05/05/24 05/06/24 Range/Units 16:59 16:59 06:48 Hgb 17.2 H (11.4-16.0) gm/dL Hct 49.4 H 54.5 H (34.0-46.0) % MCV 107.4 H 105.6 H (80.0-100.0) fL MCHC 30.4 L (31.0-37.0) g/dL Plt Count 146 L 146 L (150-450) k/uL Lymphocytes # 0.7 L (1.0-4.8) k/uL Chloride 94 L (98-107) mmol/L Carbon Dioxide 41 H* (22-30) mmol/L BUN 5 L (7-17) mg/dL Creatinine 0.45 L (0.52-1.04) mg/dL Glucose 110 H (74-99) mg/dL Total Protein 6.0 L (6.3-8.2) g/dL Albumin 3.4 L (3.5-5.0) g/dL 05/06/24 Range/Units 06:48 Hgb (11.4-16.0) gm/dL Hct (34.0-46.0) % MCV (80.0-100.0) fL MCHC (31.0-37.0) g/dL Plt Count (150-450) k/uL Lymphocytes # (1.0-4.8) k/uL Chloride 91 L (98-107) mmol/L Carbon Dioxide 49 H* (22-30) mmol/L BUN (7-17) mg/dL Creatinine (0.52-1.04) mg/dL Glucose 124 H (74-99) mg/dL Total Protein (6.3-8.2) g/dL Albumin (3.5-5.0) g/dL Assessment and Plan Plan: Acute exacerbation of chronic obstructive pulmonary disease Acute on chronic hypoxic and hypercapnic respiratory failure Ongoing tobacco abuse patient was counseled in length regarding smoking cessation Possible congestive heart failure, with chest x-ray revealing cardiomegaly and pulmonary congestion, will check BNP and consult cardiology Underlying history of hypertension Underlying history of hyperlipidemia Underlying history of gastroesophageal reflux disease Underlying history of morbid obesity Possible obstructive sleep apnea At this time patient was seen and examined Home medications reviewed and reordered She was started on IV Solu-Medrol in the emergency room Inhaled bronchodilators and inhaled steroid continued Cardiology and pulmonary consultation requested For DVT prophylaxis subcu Lovenox Patient was counseled regarding smoking cessation Will follow closely
[2024-05-06] MEDS: ESCITALOPRAM 10 MG TAB PO SCH (19:21)
[2024-05-06] MEDS: ENOXAPARIN 40 MG/0.4 ML SYRINGE SQ SCH (19:21)
[2024-05-06] MEDS: MONTELUKAST 10 MG TAB PO SCH (19:22)
[2024-05-06] MEDS: tiZANidine 4 MG TAB PO SCH (19:22)
[2024-05-06] MEDS: BUDESONIDE 0.5 MG/2 ML NEBU INHALATION SCH (20:05)
[2024-05-06] MEDS: LATANOPROST 0.005% OPHTH DROPS 2.5 ML BTL BOTH EYES SCH (22:20)
[2024-05-06] MEDS: TEMAZEPAM 15 MG CAP PO SCH (23:16)
[2024-05-07] MEDS: ALBUTEROL NEBULIZED 2.5 MG/3 ML INHALATION PRN (05:17)
[2024-05-07] MEDS: acetaZOLAMIDE 250 MG TAB PO SCH (08:42)
[2024-05-07] MEDS: PANTOPRAZOLE 40 MG TABLET PO SCH (08:42)
--- NOTE | 2024-05-07 09:23 | P.PN ---
Subjective Progress Note Date: 05/07/24 Fern Nickerson, is a 69-year-old female who presented to [facility] emergency room with a chief complaint of worsening shortness of breath She was evaluated in the emergency room vital examination on presentation revealed a temperature of 98 pulse 93 respiration 26 blood pressure 134/74 pulse ox 88% on 3 L nasal cannula Laboratory data reveals a white blood count of 6.8 hemoglobin 15.1 platelet count 146 BUN 5 creatinine 0.45 Testing in the emergency room revealed EKG revealed sinus rhythm normal EKG, chest x-ray revealed cardiomegaly with pulmonary vascular congestion Patient was admitted to medical floor for further evaluation and treatment Past medical history is significant for underlying history of COPD, history of chronic hypoxic and hypercapnic respiratory failure history of asthma, history of rheumatoid arthritis, history of osteoarthritis, prolonged history of tobacco use. On review of systems patient is alert and oriented x 3 in no apparent distress she denies any fever or chills no headache or dizziness no chest pain she stated that she is having shortness of breath with any activity no palpitation no cough no sputum production no nausea or vomiting no abdominal pain no diarrhea no blood in the stools, she has frequency and urgency with urination no hematuria. On 05/07/2024 patient is alert and oriented x 3. Patient remains on azithromycin, IV Solu-Medrol and Diamox. Cardiology and pulmonary services are following. 2D echo has been ordered. Current vital signs temp 98.5, heart rate 88, respiratory rate 18, blood pressure 143/75 with a pulse ox of 90% on 4 L Objective - Vital Signs Vital signs: Vital Signs Temp 98.5 F 05/07/24 07:15 Pulse 88 05/07/24 07:15 Resp 18 05/07/24 07:15 BP 143/75 05/07/24 07:15 Pulse Ox 90 L 05/07/24 07:15 FiO2 Intake & Output 05/06/24 05/07/24 05/07/24 18:59 06:59 18:59 Intake Total 240 Balance 240 Weight 103.6 kg Intake: Oral 240 Other: Voiding Method Toilet # Voids 3 - Exam In general patient is alert and oriented x 3 in no distress HEENT head normocephalic and atraumatic Neck is supple no JVD no goiter no lymphadenopathy no carotid bruit Chest examination reveals a scattered crackles bilaterally with wheezing and prolonged expiratory phase Cardiac exam reveals regular heart sounds S1 and S2 no gallops no murmurs Abdomen is soft nontender no organomegaly with normal bowel sounds Extremity exam reveals no edema no cyanosis or clubbing Neurological examination reveals no gross focal deficits - Labs CBC & Chem 7: 05/06/24 06:48 05/06/24 06:48 Labs: Microbiology - Last 24 Hours (Table) 05/05/24 17:10 Blood Culture - Preliminary Blood Assessment and Plan Plan: Acute exacerbation of chronic obstructive pulmonary disease Acute on chronic hypoxic and hypercapnic respiratory failure Ongoing tobacco abuse patient was counseled in length regarding smoking cessation Possible congestive heart failure, with chest x-ray revealing cardiomegaly and pulmonary congestion, will check BNP and consult cardiology Underlying history of hypertension Underlying history of hyperlipidemia Underlying history of gastroesophageal reflux disease Underlying history of morbid obesity Possible obstructive sleep apnea At this time patient was seen and examined Home medications reviewed and reordered She was started on IV Solu-Medrol in the emergency room Inhaled bronchodilators and inhaled steroid continued Cardiology and pulmonary consultation requested For DVT prophylaxis subcu Lovenox Patient was counseled regarding smoking cessation Will follow closely
--- NOTE | 2024-05-07 10:17 | P.PN ---
Subjective HISTORY OF PRESENT ILLNESS: This is a 69-year-old female who follows in the office with Dr. Lopez but states it has been a while since she has seen him. Patient is admitted to the hospital with COPD exacerbation. Patient examined this morning. She is sitting up in the chair. Patient denies any chest pain or pressure. She continues to report shortness of breath. She does report a frequent cough. Patient does have sputum production this morning that is a thick beige color. Patient remains on 2-1/2 L of oxygen with oxygen saturations greater than 90%. Blood pressure stable at 143/73. Heart rate in the 80s. She remains on IV steroids. She continues to smoke on an outpatient basis. PHYSICAL EXAM: VITAL SIGNS: Reviewed. GENERAL: Well-developed in no acute distress. NECK: Supple. No JVD or thyromegaly LUNGS: Respirations even and unlabored. Lungs with significant expiratory wheezing throughout. HEART: Regular rate and rhythm. S1 and S2 heard. EXTREMITIES: Normal range of motion. No clubbing or cyanosis. Peripheral pulse s intact. No lower extremity edema ASSESSMENT: Shortness of breath Acute COPD exacerbation Acute on chronic hypoxic respiratory failure, on home oxygen Congestive heart failure, ruled out, patient shortness of breath secondary to COPD exacerbation Nicotine dependence Obesity: BMI 38.0 PLAN: Pulmonary following. Continue IV steroids per pulmonary medicine Patient is clinically not in congestive heart failure at the time of examination. No need for diuretics. Recommend smoking cessation 2D echo has been ordered. Await results. If 2D echo does not reveal any significant abnormalities, no further workup from a cardiac standpoint Nurse practitioner note has been reviewed by physician. Signing provider agrees with the documented findings, assessment, and plan of care documented by CARBONIZER as a scribe. Objective - Vital Signs Vital signs: Vital Signs Temp 98.5 F 05/07/24 07:15 Pulse 88 05/07/24 09:50 Resp 18 05/07/24 07:15 BP 143/75 05/07/24 07:15 Pulse Ox 90 L 05/07/24 07:15 FiO2 Intake & Output 05/06/24 05/07/24 05/07/24 18:59 06:59 18:59 Intake Total 240 Balance 240 Weight 103.6 kg Intake: Oral 240 Other: Voiding Method Toilet # Voids 3 - Labs CBC & Chem 7: 05/06/24 06:48 05/06/24 06:48 Labs: Microbiology - Last 24 Hours (Table) 05/05/24 17:10 Blood Culture - Preliminary Blood
--- NOTE | 2024-05-07 12:11 | CA ---
Transthoracic Echo Report Name: Fern Nickerson Age: 69 Gender: F : 1955 Exam Date: 05/07/2024 08:58 Exam Location: [place] [facility] Ht (in): 65 Wt (lb): 212 Ordering Physician: Sixto Wharton MD ([id number]) Attending/Referring Phys: Under Water Assistant Adelia Marquez RDCS Procedure CPT: Indications: chf, pulmonary hypertension Cardiac Hx: Technical Quality: Technically difficult study Contrast 1: Definity Total Dose (mL): 2 Contrast 2: Total Dose (mL): MEASUREMENTS (Male / Female) Normal Values 2D ECHO LV Diastolic Diameter PLAX 5.0 cm 4.2 - 5.9 / 3.9 - 5.3 cm LV Systolic Diameter PLAX 3.2 cm IVS Diastolic Thickness 1.2 cm 0.6 - 1.0 / 0.6 - 0.9 cm LVPW Diastolic Thickness 1.1 cm 0.6 - 1.0 / 0.6 - 0.9 cm LV Relative Wall Thickness 0.4 LVOT Diameter 2.0 cm LV Diastolic Volume MOD BP 130.0 cm??? 67 - 155 / 56 - 104 cm??? LV Systolic Volume MOD BP 49.0 cm??? 22 - 58 / 19 - 49 cm??? LV Ejection Fraction MOD BP 62.3 % >= 55 % LV Cardiac Index MOD BP 3443.7 cm???/min???m??? LV Diastolic Volume MOD 4C 122.1 cm??? LV Systolic Volume MOD 4C 49.2 cm??? LV Ejection Fraction MOD 4C 59.7 % LV Cardiac Index MOD 4C 3099.4 cm???/min???m??? LV Diastolic Length 4C 8.2 cm LV Systolic Length 4C 6.8 cm LV Diastolic Volume MOD 2C 136.1 cm??? LV Systolic Volume MOD 2C 45.4 cm??? LV Ejection Fraction MOD 2C 66.7 % LV Cardiac Index MOD 2C 3856.7 cm???/min???m??? LV Diastolic Length 2C 8.3 cm LV Systolic Length 2C 6.3 cm DOPPLER AV Peak Velocity 187.2 cm/s AV Peak Gradient 14.0 mmHg AV Mean Velocity 122.8 cm/s AV Mean Gradient 7.1 mmHg AV Velocity Time Integral 30.1 cm LVOT Peak Velocity 105.2 cm/s LVOT Peak Gradient 4.4 mmHg LVOT Velocity Time Integral 19.2 cm LVOT Stroke Volume 62.4 cm??? LVOT Stroke Volume Index 30.8 ml/m??? LVOT Cardiac Index 2653.2 cm???/min???m??? AV Area Cont Eq vti 2.1 cm??? AV Area Cont Eq pk 1.8 cm??? MV Peak Velocity 149.1 cm/s MV Peak Gradient 8.9 mmHg MV Mean Velocity 97.2 cm/s MV Mean Gradient 4.2 mmHg MV Velocity Time Integral 24.2 cm MV Area PHT 6.0 cm??? Mitral E Point Velocity 87.0 cm/s Mitral A Point Velocity 120.3 cm/s Mitral E to A Ratio 0.7 MV Deceleration Time 126.3 ms PV Peak Velocity 111.9 cm/s PV Peak Gradient 5.0 mmHg FINDINGS Left Ventricle Left ventricular ejection fraction is estimated at 55-60 %. Normal left ventricular systolic function with no obvious regional wall motion abnormalities. Mildly increased left ventricular wall thickness. Right Ventricle Normal right ventricular size and function. Unable to estimate the right ventricular systolic pressure. Right Atrium Normal right atrial size by visual estimate. Left Atrium Mildly increased left atrial area. Mitral Valve Structurally normal mitral valve. No mitral stenosis, regurgitation or prolapse. Aortic Valve Aortic valve not well visualized. No aortic valve stenosis or regurgitation. Tricuspid Valve Structurally normal tricuspid valve. No tricuspid stenosis, regurgitation or prolapse. Pulmonic Valve Pulmonic valve not well visualized. No pulmonic stenosis. Pericardium Moderate pericardial effusion. Aorta Aortic annulus normal. CONCLUSIONS Technically difficult study. Definity ECHO contrast used for improved visualization of the endocardial borders (inadequate visualization of two or more contiguous segments). Normal left ventricular size and systolic function Very limited Doppler study Moderate pericardial effusion with no evidence of temponade Previewed by: Dr. Gatito Ruiz MD (Electronically Signed) Final Date: 07 May 2024 12:10
[2024-05-07 13:32] VITALS: BMI 38.0
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
[2024-05-08 11:00] LABS: ALT 9 U/L (8-44); AST 14 U/L (13-35); Albumin 3.7 g/dL (3.8-4.9); Albumin/Globulin Ratio 1.68 Ratio (1.60-3.17); Alkaline Phosphatase 68 U/L (41-126); BUN/Creat Ratio 29.67 Ratio (12.00-20.00); Blood Urea Nitrogen 17.8 mg/dL (9.0-27.0); Carbon Dioxide 36.9 mmol/L (21.6-31.8); Chloride 92 mmol/L (96-109); Globulin 2.2 g/dL (1.6-3.3); Glucose 168 mg/dL (70-110); Potassium 4.5 mmol/L (3.5-5.5); Sodium 137 mmol/L (135-145); Total Bilirubin <0.2 mg/dL (0.3-1.2); Total Protein 5.9 g/dL (6.2-8.2)
[2024-05-08 11:56] LABS: Basophils # (A) 0.01 X 10*3/uL (0.00-0.10); Basophils % (A) 0.2 %; Eosinophils # (A) 0 X 10*3/uL (0.04-0.35); Eosinophils % (A) 0 %; HCT 48.9 % (37.2-46.3); Lymphocytes # (A) 0.48 X 10*3/uL (0.90-5.00); Lymphocytes % (A) 9.4 %; MCH 32.8 pg (27.0-32.0); MCHC 30.7 g/dL (32.0-37.0); MCV 106.8 FL (80.0-97.0); Macrocytosis (M) 2+; Mean Platelet Volume 11.5 FL (9.5-12.2); Monocytes # (A) 0.14 X 10*3/uL (0.20-1.00); Monocytes % (A) 2.7 %; NRBC Per 100 WBC 0 X 10*3/uL (0.00-0.01); Neutrophils # (A) 4.47 X 10*3/uL (1.80-7.70); Neutrophils % (A) 87.1 %; Platelet Count 114 X 10*3/uL (140-440); RBC 4.58 X 10*6/uL (4.10-5.20); RDW 12.9 % (11.5-14.5); WBC 5.13 X 10*3/uL (4.50-10.00)
--- NOTE | 2024-05-08 12:43 | P.PN ---
Subjective Progress Note Date: 05/08/24 Fern Nickerson, is a 69-year-old female who presented to [facility] emergency room with a chief complaint of worsening shortness of breath She was evaluated in the emergency room vital examination on presentation revealed a temperature of 98 pulse 93 respiration 26 blood pressure 134/74 pulse ox 88% on 3 L nasal cannula Laboratory data reveals a white blood count of 6.8 hemoglobin 15.1 platelet count 146 BUN 5 creatinine 0.45 Testing in the emergency room revealed EKG revealed sinus rhythm normal EKG, chest x-ray revealed cardiomegaly with pulmonary vascular congestion Patient was admitted to medical floor for further evaluation and treatment Past medical history is significant for underlying history of COPD, history of chronic hypoxic and hypercapnic respiratory failure history of asthma, history of rheumatoid arthritis, history of osteoarthritis, prolonged history of tobacco use. On review of systems patient is alert and oriented x 3 in no apparent distress she denies any fever or chills no headache or dizziness no chest pain she stated that she is having shortness of breath with any activity no palpitation no cough no sputum production no nausea or vomiting no abdominal pain no diarrhea no blood in the stools, she has frequency and urgency with urination no hematuria. On 05/07/2024 patient is alert and oriented x 3. Patient remains on azithromycin, IV Solu-Medrol and Diamox. Cardiology and pulmonary services are following. 2D echo has been ordered. Current vital signs temp 98.5, heart rate 88, respiratory rate 18, blood pressure 143/75 with a pulse ox of 90% on 4 L On 05/08/2024 patient was seen and examined on the medical floor she is alert and oriented x 3 in no apparent distress, there is no fever or chills no headache or dizziness no chest pain, she is still having severe shortness of breath with any activity, she is still complaining of cough, no palpitation no nausea or vomiting no abdominal pain no diarrhea, she is still complaining of frequency with urination. CO2 has improved from 49-36.9 patient is maintained on oral Diamox, will continue with IV Solu-Medrol and inhaled bronchodilators, will continue to follow closely. Objective - Vital Signs Vital signs: Vital Signs Temp 97.4 F L 05/08/24 06:45 Pulse 78 05/08/24 12:36 Resp 17 05/08/24 06:45 BP 128/74 05/08/24 06:45 Pulse Ox 92 L 05/08/24 08:27 FiO2 Intake & Output 05/07/24 05/08/24 05/08/24 18:59 06:59 18:59 Intake Total 690 450 Balance 690 450 Weight 103.6 kg 104.5 kg Intake: Oral 690 450 Other: Voiding Method Toilet # Voids 7 3 2 - Exam In general patient is alert and oriented x 3 in no distress HEENT head normocephalic and atraumatic Neck is supple no JVD no goiter no lymphadenopathy no carotid bruit Chest examination reveals a scattered crackles bilaterally with wheezing and prolonged expiratory phase Cardiac exam reveals regular heart sounds S1 and S2 no gallops no murmurs Abdomen is soft nontender no organomegaly with normal bowel sounds Extremity exam reveals no edema no cyanosis or clubbing Neurological examination reveals no gross focal deficits - Labs CBC & Chem 7: 05/08/24 02:55 05/08/24 02:55 Labs: Abnormal Lab Results - Last 24 Hours (Table) 05/08/24 05/08/24 Range/Units 02:55 02:55 Hct 48.9 H (37.2-46.3) % MCV 106.8 H (80.0-97.0) FL MCH 32.8 H (27.0-32.0) pg MCHC 30.7 L (32.0-37.0) g/dL Plt Count 114 L (140-440) X 10*3/uL Lymphocytes # 0.48 L (0.90-5.00) X 10*3/uL Monocytes # 0.14 L (0.20-1.00) X 10*3/uL Eosinophils # 0 L (0.04-0.35) X 10*3/uL Macrocytosis (manual) 2+ A Chloride 92 L (96-109) mmol/L Carbon Dioxide 36.9 H (21.6-31.8) mmol/L BUN/Creatinine Ratio 29.67 H (12.00-20.00) Ratio Glucose 168 H (70-110) mg/dL Total Bilirubin <0.2 L (0.3-1.2) mg/dL Total Protein 5.9 L (6.2-8.2) g/dL Albumin 3.7 L (3.8-4.9) g/dL Microbiology - Last 24 Hours (Table) 05/05/24 17:10 Blood Culture - Preliminary Blood Assessment and Plan Plan: Acute exacerbation of chronic obstructive pulmonary disease Acute on chronic hypoxic and hypercapnic respiratory failure Ongoing tobacco abuse patient was counseled in length regarding smoking cessation Possible congestive heart failure, with chest x-ray revealing cardiomegaly and pulmonary congestion, will check BNP and consult cardiology Underlying history of hypertension Underlying history of hyperlipidemia Underlying history of gastroesophageal reflux disease Underlying history of morbid obesity Possible obstructive sleep apnea At this time patient was seen and examined Home medications reviewed and reordered She was started on IV Solu-Medrol in the emergency room Inhaled bronchodilators and inhaled steroid continued Cardiology and pulmonary consultation requested For DVT prophylaxis subcu Lovenox Patient was counseled regarding smoking cessation Will follow closely
--- NOTE | 2024-05-08 14:09 | P.PN ---
Subjective Progress Note Date: 05/08/24 Patient is a 69-year-old white female with past medical history significant for asthma/COPD, current everyday smoker, GERD. Her primary care provider is Dr. Jovel. She does have history of oxygen dependent COPD. Previously followed with Dr. Renate Lopez, but not currently following with any department of mathematics chair. She is normally maintained on 2 to 3 L of nasal cannula 20/02. She is being evaluated in the emergency department. She is sitting up in the bedside recliner. Alert and oriented. She is resting comfortably on 3 L/min nasal cannula. No signs of CO2 narcosis. She feels that her asthma/COPD is active. Over the last 3 days she has had progressively worsening shortness of breath. Denies fevers. Denies URI-like symptoms. She has a congested cough which is mostly nonproductive. Denies chest pain. Denies hemoptysis. She continues to smoke approximately 1/2 pack/day. Viral screen negative for COVID, influenza, RSV. Denies sick contacts. Chest x-ray showing cardiomegaly and possible mild pulmonary vascular congestion. NT proBNP was only 581. She was initiated on Lasix 40 mg twice daily in the emergency department. Troponin less than 0.012. EKG: Normal sinus rhythm, 90 bpm, no acute ischemic changes. Denies chest pain or increased lower extremity swelling. Endorses orthopnea. CBC: WBC count 6.8, hemoglobin 15.1, hematocrit 49.4, platelets 146. CMP: Sodium 137, potassium 4 .5, chloride 94, serum bicarb 41, BUN 5, creatinine 0.45, glucose 110. Lactic 0.9. LFTs unremarkable. Hemodynamics are fairly stable. Blood pressure hypertensive. The patient is seen today May 07, 2024 in follow-up on the regular medical floor. She is awake and alert in no acute distress. Maintaining good O2 saturation in the 90s on 2 L/min per nasal cannula. She has been afebrile. Hem odynamically stable. Procalcitonin negative at 0.05. Antibiotics discontinued. Continued on DuoNebs, Pulmicort, Singulair Solu-Medrol. NicoDerm patch in place. The patient is seen today May 08, 2024 in follow-up on the regular medical floor. She is currently sitting up in a chair at the bedside. Awake and alert in no acute distress. Maintaining good O2 saturations in the 90s on 2 L/min per nasal cannula. She is continued on DuoNeb and elations, Pulmicort inhalations, Solu-Medrol. NicoDerm patch in place. Lovenox for DVT prophylaxis. White count 5.1. Hemoglobin 15.0. Platelets 114. Sodium 137. Potassium 4.5. Bicarb 37. BUN 18. Creatinine 0.6. Glucose 168. Objective - Vital Signs Vital signs: Vital Signs Temp 97.4 F L 05/08/24 06:45 Pulse 80 05/08/24 12:46 Resp 17 05/08/24 06:45 BP 128/74 05/08/24 06:45 Pulse Ox 92 L 05/08/24 08:27 FiO2 Intake & Output 05/07/24 05/08/24 05/08/24 18:59 06:59 18:59 Intake Total 690 450 Balance 690 450 Weight 103.6 kg 104.5 kg Intake: Oral 690 450 Other: Voiding Method Toilet Toilet # Voids 7 3 2 - Exam GENERAL EXAM: Alert, 69-year-old obese female, sitting up in a chair, 2 L nasal cannula, in no apparent distress. HEAD: Normocephalic and atraumatic EYES: Normal reaction of pupils, equal size. NOSE: Clear with pink turbinates. THROAT: No erythema or exudates. NECK: No masses, no JVD. CHEST: No chest wall deformity. LUNGS: Equal air entry with wheezing and rhonchi heard bilaterally and throughout. CVS: S1 and S2 normal with no audible murmur, regular rhythm. No extra heart sounds ABDOMEN: No hepatosplenomegaly, active bowel sounds, no guarding or rigidity. SPINE: No scoliosis or deformity SKIN: No rashes CENTRAL NERVOUS SYSTEM: No focal deficits, tone is normal in all 4 extremities. EXTREMITIES: There is no peripheral edema, clubbing, or cyanosis. Peripheral pulses are intact. - Labs CBC & Chem 7: 05/08/24 02:55 05/08/24 02:55 Labs: Abnormal Lab Results - Last 24 Hours (Table) 05/08/24 05/08/24 Range/Units 02:55 02:55 Hct 48.9 H (37.2-46.3) % MCV 106.8 H (80.0-97.0) FL MCH 32.8 H (27.0-32.0) pg MCHC 30.7 L (32.0-37.0) g/dL Plt Count 114 L (140-440) X 10*3/uL Lymphocytes # 0.48 L (0.90-5.00) X 10*3/uL Monocytes # 0.14 L (0.20-1.00) X 10*3/uL Eosinophils # 0 L (0.04-0.35) X 10*3/uL Macrocytosis (manual) 2+ A Chloride 92 L (96-109) mmol/L Carbon Dioxide 36.9 H (21.6-31.8) mmol/L BUN/Creatinine Ratio 29.67 H (12.00-20.00) Ratio Glucose 168 H (70-110) mg/dL Total Bilirubin <0.2 L (0.3-1.2) mg/dL Total Protein 5.9 L (6.2-8.2) g/dL Albumin 3.7 L (3.8-4.9) g/dL Microbiology - Last 24 Hours (Table) 05/05/24 17:10 Blood Culture - Preliminary Blood Assessment and Plan Assessment: Acute COPD exacerbation Possible exacerbation of congestive heart failure, unknown type; chest x-ray s howing cardiomegaly and possible mild pulmonary vascular congestion. NT proBNP only mildly elevated at 581. Acute on chronic hypoxemic respiratory failure, secondary to above Chronic hypoxemic respiratory failure, normally maintained on 2 to 3 L on an outpatient basis Chronic ongoing tobacco dependence, with over [id number] history Hypertension History of GERD Morbid obesity, with BMI of 35.3 kg/m Plan: The patient was seen and evaluated Labs and medications reviewed Continue bronchodilators, steroids Again educated regarding smoking cessation Titrate the FiO2 as tolerated We will continue to follow I have personally seen and examined the patient, performed the documentation and the assessment and plan as written. Number of minutes spent on the visit: 10.
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
[2024-05-09 09:39] LABS: African American GFR (CKD) 88 (>60 ml/min/1.73 sqM); Anion Gap 3 mmol/L; Blood Urea Nitrogen 19 mg/dL (7-17); Calcium 9.5 mg/dL (8.4-10.2); Carbon Dioxide 38 mmol/L (22-30); Chloride 97 mmol/L (98-107); Glucose 124 mg/dL (74-99); Non-African American GFR(CKD) 77 (>60 ml/min/1.73 sqM); Potassium 4.9 mmol/L (3.5-5.1); Sodium 138 mmol/L (137-145)
[2024-05-09 09:59] LABS: Basophils # (A) 0.1 k/uL (0-0.2); Basophils % (A) 1 %; Eosinophils % (A) 0 %; HGB 17.4 gm/dL (11.4-16.0); Hypochromasia Marked; Lymphocytes # (A) 0.8 k/uL (1.0-4.8); Lymphocytes % (A) 9 %; MCHC 29.4 g/dL (31.0-37.0); MCV 108.7 fL (80.0-100.0); Macrocytosis Moderate; Mean Platelet Volume 7.7; Monocytes # (A) 0.4 k/uL (0-1.0); Monocytes % (A) 5 %; Neutrophils # (A) 7.2 k/uL (1.3-7.7); Neutrophils % (A) 85 %; Platelet Count 155 k/uL (150-450); RBC 5.43 m/uL (3.80-5.40); RDW 13.1 % (11.5-15.5); WBC 8.4 k/uL (3.8-10.6)
--- NOTE | 2024-05-09 13:40 | P.PN ---
Subjective Progress Note Date: 05/09/24 Patient is a 69-year-old white female with past medical history significant for asthma/COPD, current everyday smoker, GERD. Her primary care provider is Dr. Jovel. She does have history of oxygen dependent COPD. Previously followed with Dr. Renate Lopez, but not currently following with any visual communications instructor. She is normally maintained on 2 to 3 L of nasal cannula 20/02. She is being evaluated in the emergency department. She is sitting up in the bedside recliner. Alert and oriented. She is resting comfortably on 3 L/min nasal cannula. No signs of CO2 narcosis. She feels that her asthma/COPD is active. Over the last 3 days she has had progressively worsening shortness of breath. Denies fevers. Denies URI-like symptoms. She has a congested cough which is mostly nonproductive. Denies chest pain. Denies hemoptysis. She continues to smoke approximately 1/2 pack/day. Viral screen negative for COVID, influenza, RSV. Denies sick contacts. Chest x-ray showing cardiomegaly and possible mild pulmonary vascular congestion. NT proBNP was only 581. She was initiated on Lasix 40 mg twice daily in the emergency department. Troponin less than 0.012. EKG: Normal sinus rhythm, 90 bpm, no acute ischemic changes. Denies chest pain or increased lower extremity swelling. Endorses orthopnea. CBC: WBC count 6.8, hemoglobin 15.1, hematocrit 49.4, platelets 146. CMP: Sodium 137, potassium 4 .5, chloride 94, serum bicarb 41, BUN 5, creatinine 0.45, glucose 110. Lactic 0.9. LFTs unremarkable. Hemodynamics are fairly stable. Blood pressure hypertensive. The patient is seen today May 07, 2024 in follow-up on the regular medical floor. She is awake and alert in no acute distress. Maintaining good O2 saturation in the 90s on 2 L/min per nasal cannula. She has been afebrile. Hem odynamically stable. Procalcitonin negative at 0.05. Antibiotics discontinued. Continued on DuoNebs, Pulmicort, Singulair Solu-Medrol. NicoDerm patch in place. The patient is seen today May 08, 2024 in follow-up on the regular medical floor. She is currently sitting up in a chair at the bedside. Awake and alert in no acute distress. Maintaining good O2 saturations in the 90s on 2 L/min per nasal cannula. She is continued on DuoNeb and elations, Pulmicort inhalations, Solu-Medrol. NicoDerm patch in place. Lovenox for DVT prophylaxis. White count 5.1. Hemoglobin 15.0. Platelets 114. Sodium 137. Potassium 4.5. Bicarb 37. BUN 18. Creatinine 0.6. Glucose 168. The patient is seen today May 09, 2024 in follow-up on the regular medical floor. She is currently sitting up in a chair at the bedside. Awake and alert in no acute distress. She is maintaining O2 saturations in the 90s on 3 L/min per nasal cannula.. She is afebrile. Hemodynamically stable. White count 8.4. Hemoglobin 17.4. Platelets 155. Sodium 138. Potassium 4.9. Bicarb 38. BUN 19. Creatinine 0.8. Glucose 124. She remains on DuoNeb inhalations, Pulmicort inhalations, Solu-Medrol. NicoDerm patch in place. Lovenox for DVT prophylaxis. Objective - Vital Signs Vital signs: Vital Signs Temp 97.1 F L 05/09/24 01:38 Pulse 70 05/09/24 12:26 Resp 16 05/09/24 07:09 BP 124/71 05/09/24 07:09 Pulse Ox 93 L 05/09/24 07:09 FiO2 Intake & Output 05/08/24 05/09/24 05/09/24 18:59 06:59 18:59 Intake Total 450 Balance 450 Intake: Oral 450 Other: Voiding Method Toilet Toilet # Voids 4 2 - Exam GENERAL EXAM: Alert, 69-year-old obese female, up in a chair, 3 L/min per nasal cannula, in no apparent distress. HEAD: Normocephalic and atraumatic EYES: Normal reaction of pupils, equal size. NOSE: Clear with pink turbinates. THROAT: No erythema or exudates. NECK: No masses, no JVD. CHEST: No chest wall deformity. LUNGS: Equal air entry with faint wheezing and rhonchi heard bilaterally and throughout. CVS: S1 and S2 normal with no audible murmur, regular rhythm. No extra heart sounds ABDOMEN: No hepatosplenomegaly, active bowel sounds, no guarding or rigidity. SPINE: No scoliosis or deformity SKIN: No rashes CENTRAL NERVOUS SYSTEM: No focal deficits, tone is normal in all 4 extremities. EXTREMITIES: There is no peripheral edema, clubbing, or cyanosis. Peripheral pulses are intact. - Labs CBC & Chem 7: 05/09/24 09:06 05/09/24 09:06 Labs: Abnormal Lab Results - Last 24 Hours (Table) 05/09/24 05/09/24 Range/Units 09:06 09:06 RBC 5.43 H (3.80-5.40) m/uL Hgb 17.4 H (11.4-16.0) gm/dL Hct 59.0 H* (34.0-46.0) % MCV 108.7 H (80.0-100.0) fL MCHC 29.4 L (31.0-37.0) g/dL Lymphocytes # 0.8 L (1.0-4.8) k/uL Chloride 97 L (98-107) mmol/L Carbon Dioxide 38 H (22-30) mmol/L BUN 19 H (7-17) mg/dL Glucose 124 H (74-99) mg/dL Microbiology - Last 24 Hours (Table) 05/05/24 17:10 Blood Culture - Preliminary Blood Assessment and Plan Assessment: Acute COPD exacerbation Possible exacerbation of congestive heart failure, unknown type; chest x-ray showing cardiomegaly and possible mild pulmonary vascular congestion. NT proBNP only mildly elevated at 581. Acute on chronic hypoxemic respiratory failure, secondary to above Chronic hypoxemic respiratory failure, normally maintained on 2 to 3 L on an outpatient basis Chronic ongoing tobacco dependence, with over 63-[id number] history Hypertension History of GERD Morbid obesity, with BMI of 38.3 kg/m Plan: The patient was seen and evaluated Labs and medications reviewed Solu-Medrol transitioned to prednisone Pulmicort transitioned to Symbicort Continue DuoNeb and elations Again educated regarding smoking cessation Has home oxygen Plan is for home with home care I have personally seen and examined the patient, performed the documentation and the assessment and plan as written. Number of minutes spent on the visit: 10.
--- NOTE | 2024-05-09 14:58 | P.PN ---
Subjective Progress Note Date: 05/09/24 Fern Nickerson, is a 69-year-old female who presented to [facility] emergency room with a chief complaint of worsening shortness of breath She was evaluated in the emergency room vital examination on presentation revealed a temperature of 98 pulse 93 respiration 26 blood pressure 134/74 pulse ox 88% on 3 L nasal cannula Laboratory data reveals a white blood count of 6.8 hemoglobin 15.1 platelet count 146 BUN 5 creatinine 0.45 Testing in the emergency room revealed EKG revealed sinus rhythm normal EKG, chest x-ray revealed cardiomegaly with pulmonary vascular congestion Patient was admitted to medical floor for further evaluation and treatment Past medical history is significant for underlying history of COPD, history of chronic hypoxic and hypercapnic respiratory failure history of asthma, history of rheumatoid arthritis, history of osteoarthritis, prolonged history of tobacco use. On review of systems patient is alert and oriented x 3 in no apparent distress she denies any fever or chills no headache or dizziness no chest pain she stated that she is having shortness of breath with any activity no palpitation no cough no sputum production no nausea or vomiting no abdominal pain no diarrhea no blood in the stools, she has frequency and urgency with urination no hematuria. On 05/07/2024 patient is alert and oriented x 3. Patient remains on azithromycin, IV Solu-Medrol and Diamox. Cardiology and pulmonary services are following. 2D echo has been ordered. Current vital signs temp 98.5, heart rate 88, respiratory rate 18, blood pressure 143/75 with a pulse ox of 90% on 4 L On 05/08/2024 patient was seen and examined on the medical floor she is alert and oriented x 3 in no apparent distress, there is no fever or chills no headache or dizziness no chest pain, she is still having severe shortness of breath with any activity, she is still complaining of cough, no palpitation no nausea or vomiting no abdominal pain no diarrhea, she is still complaining of frequency with urination. CO2 has improved from 49-36.9 patient is maintained on oral Diamox, will continue with IV Solu-Medrol and inhaled bronchodilators, will continue to follow closely. On 05/09/2024 patient was seen and examined on the medical floor she is alert and oriented x 3 in no apparent distress she is still complaining of shortness of breath with any activity she is also complaining of dizziness otherwise she denies any complaints at this time there is no fever or chills no headache no chest pain no nausea or vomiting no abdominal pain no diarrhea no urinary symptoms Objective - Vital Signs Vital signs: Vital Signs Temp 97.1 F L 05/09/24 01:38 Pulse 70 05/09/24 12:26 Resp 16 05/09/24 07:09 BP 124/71 05/09/24 07:09 Pulse Ox 93 L 05/09/24 07:09 FiO2 Intake & Output 05/08/24 05/09/24 05/09/24 18:59 06:59 18:59 Intake Total 450 Balance 450 Intake: Oral 450 Other: Voiding Method Toilet Toilet # Voids 4 2 - Exam In general patient is alert and oriented x 3 in no distress HEENT head normocephalic and atraumatic Neck is supple no JVD no goiter no lymphadenopathy no carotid bruit Chest examination reveals a scattered crackles bilaterally with wheezing and prolonged expiratory phase Cardiac exam reveals regular heart sounds S1 and S2 no gallops no murmurs Abdomen is soft nontender no organomegaly with normal bowel sounds Extremity exam reveals no edema no cyanosis or clubbing Neurological examination reveals no gross focal deficits - Labs CBC & Chem 7: 05/09/24 09:06 05/09/24 09:06 Labs: Abnormal Lab Results - Last 24 Hours (Table) 05/09/24 05/09/24 Range/Units 09:06 09:06 RBC 5.43 H (3.80-5.40) m/uL Hgb 17.4 H (11.4-16.0) gm/dL Hct 59.0 H* (34.0-46.0) % MCV 108.7 H (80.0-100.0) fL MCHC 29.4 L (31.0-37.0) g/dL Lymphocytes # 0.8 L (1.0-4.8) k/uL Chloride 97 L (98-107) mmol/L Carbon Dioxide 38 H (22-30) mmol/L BUN 19 H (7-17) mg/dL Glucose 124 H (74-99) mg/dL Microbiology - Last 24 Hours (Table) 05/05/24 17:10 Blood Culture - Preliminary Blood Assessment and Plan Plan: Acute exacerbation of chronic obstructive pulmonary disease Acute on chronic hypoxic and hypercapnic respiratory failure Ongoing tobacco abuse patient was counseled in length regarding smoking cessation Possible congestive heart failure, with chest x-ray revealing cardiomegaly and pulmonary congestion, will check BNP and consult cardiology Underlying history of hypertension Underlying history of hyperlipidemia Underlying history of gastroesophageal reflux disease Underlying history of morbid obesity Possible obstructive sleep apnea At this time patient was seen and examined Home medications reviewed and reordered She was started on IV Solu-Medrol in the emergency room Inhaled bronchodilators and inhaled steroid continued Cardiology and pulmonary consultation requested For DVT prophylaxis subcu Lovenox Patient was counseled regarding smoking cessation Will follow closely
--- NOTE | 2024-05-09 15:48 | US ---
EXAMINATION TYPE: US carotid duplex BILAT DATE OF EXAM: 05/09/2024 Exam done portable COMPARISON: NONE CLINICAL INDICATION: Female, 69 years old with history of Dizziness; TECHNIQUE: Grayscale, color Doppler and spectral Doppler evaluation of the bilateral carotid systems and vertebral arteries.Indirect Doppler criteria was utilized. FINDINGS: EXAM MEASUREMENTS: RIGHT: Peak Systolic Velocity (PSV) cm/sec ----- Right CCA: 55.6 ----- Right ICA: 75.3 ----- Right ECA: 109.2 ICA/CCA ratio: 1.4 RIGHT: End Diastole cm/sec ----- Right CCA: 12.0 ----- Right ICA: 31.1 ----- Right ECA: 9.5 LEFT: Peak Systolic Velocity (PSV) cm/sec ----- Left CCA: 91.3 ----- Left ICA: 97.5 ----- Left ECA: 114.0 ICA/CCA ratio: 1.1 LEFT: End Diastole cm/sec ----- Left CCA: 21.6 ----- Left ICA: 41.0 ----- Left ECA: 17.1 VERTEBRALS (direction of flow): Right Vertebral: Antegrade Left Vertebral: Antegrade Rhythm: Normal No significant stenosis IMPRESSION: 1. No significant stenosis or atherosclerotic changes based on color and grayscale imaging. 2. No hemodynamically significant stenosis based on peak systolic velocities and ratios. Criteria for Assigning % of Stenosis / Diameter reduction (Estimation based on the indirect measurements of the internal carotid artery velocities (ICA PSV). 1. Normal (no stenosis)=ICA PSV < 125 cm/s: ratio < 2.0: ICA EDV<40 cm/s. 2. Less than 50% stenosis=ICA PSV < 125 cm/s: ratio < 2.0: ICA EDV<40 cm/s. 3. 50 to 69% stenosis=ICA PSV of 125 to 230 cm/s: ration 2.0 ? 4.0: ICA EDV 40-100 cm/s. 4. Greater than 70% stenosis to near occlusion= ICA PSV > 230 cm/s: ratio > 4.0: ICA EDV > 100 cm/s. 5. Near occlusion= ICA PSV velocities may be low or undetectable: variable ratio and ICA EDV. 6. Total occlusion=unable to detect flow. [facility], , 05/09/2024 3:45 PM
[2024-05-09] MEDS: SYMBICORT 160-4.5 MCG INHALER INHALATION SCH (20:42)
[2024-05-09 23:49] LABS: Chol/HDL Ratio 3.13 Ratio; LDL Cholesterol,Calculated 161.7 mg/dL (0.0-131.0)
[2024-05-10 08:48] LABS: Basophils # (A) 0.01 X 10*3/uL (0.00-0.10); Basophils % (A) 0.1 %; Eosinophils # (A) 0 X 10*3/uL (0.04-0.35); Eosinophils % (A) 0 %; HGB 15.3 g/dL (12.0-15.0); Lymphocytes # (A) 0.97 X 10*3/uL (0.90-5.00); Lymphocytes % (A) 14.5 %; MCH 31.9 pg (27.0-32.0); MCV 106.3 FL (80.0-97.0); Mean Platelet Volume 11.1 FL (9.5-12.2); Monocytes # (A) 0.46 X 10*3/uL (0.20-1.00); Monocytes % (A) 6.9 %; NRBC Per 100 WBC 0 X 10*3/uL (0.00-0.01); Neutrophils # (A) 5.18 X 10*3/uL (1.80-7.70); Neutrophils % (A) 77.6 %; Platelet Count 112 X 10*3/uL (140-440); RDW 12.7 % (11.5-14.5); WBC 6.68 X 10*3/uL (4.50-10.00)
[2024-05-10 09:42] LABS: BUN/Creat Ratio 26.62 Ratio (12.00-20.00); Blood Urea Nitrogen 21.3 mg/dL (9.0-27.0); Carbon Dioxide 37.8 mmol/L (21.6-31.8); Chloride 94 mmol/L (96-109); Glucose 133 mg/dL (70-110); Potassium 4.6 mmol/L (3.5-5.5); Sodium 138 mmol/L (135-145)
[2024-05-10 09:43] LABS: ALT 19 U/L (8-44); AST 18 U/L (13-35); Albumin 3.6 g/dL (3.8-4.9); Alkaline Phosphatase 74 U/L (41-126); Calcium 8.8 mg/dL (8.7-10.3); Total Bilirubin <0.2 mg/dL (0.3-1.2); Total Protein 5.6 g/dL (6.2-8.2)
[2024-05-10] MEDS: predniSONE 10 MG TAB PO SCH (10:13)
--- NOTE | 2024-05-10 10:21 | P.PN ---
Subjective Progress Note Date: 05/10/24 Fern Nickerson, is a 69-year-old female who presented to [facility] emergency room with a chief complaint of worsening shortness of breath She was evaluated in the emergency room vital examination on presentation revealed a temperature of 98 pulse 93 respiration 26 blood pressure 134/74 pulse ox 88% on 3 L nasal cannula Laboratory data reveals a white blood count of 6.8 hemoglobin 15.1 platelet count 146 BUN 5 creatinine 0.45 Testing in the emergency room revealed EKG revealed sinus rhythm normal EKG, chest x-ray revealed cardiomegaly with pulmonary vascular congestion Patient was admitted to medical floor for further evaluation and treatment Past medical history is significant for underlying history of COPD, history of chronic hypoxic and hypercapnic respiratory failure history of asthma, history of rheumatoid arthritis, history of osteoarthritis, prolonged history of tobacco use. On review of systems patient is alert and oriented x 3 in no apparent distress she denies any fever or chills no headache or dizziness no chest pain she stated that she is having shortness of breath with any activity no palpitation no cough no sputum production no nausea or vomiting no abdominal pain no diarrhea no blood in the stools, she has frequency and urgency with urination no hematuria. On 05/07/2024 patient is alert and oriented x 3. Patient remains on azithromycin, IV Solu-Medrol and Diamox. Cardiology and pulmonary services are following. 2D echo has been ordered. Current vital signs temp 98.5, heart rate 88, respiratory rate 18, blood pressure 143/75 with a pulse ox of 90% on 4 L On 05/08/2024 patient was seen and examined on the medical floor she is alert and oriented x 3 in no apparent distress, there is no fever or chills no headache or dizziness no chest pain, she is still having severe shortness of breath with any activity, she is still complaining of cough, no palpitation no nausea or vomiting no abdominal pain no diarrhea, she is still complaining of frequency with urination. CO2 has improved from 49-36.9 patient is maintained on oral Diamox, will continue with IV Solu-Medrol and inhaled bronchodilators, will continue to follow closely. On 05/09/2024 patient was seen and examined on the medical floor she is alert and oriented x 3 in no apparent distress she is still complaining of shortness of breath with any activity she is also complaining of dizziness otherwise she denies any complaints at this time there is no fever or chills no headache no chest pain no nausea or vomiting no abdominal pain no diarrhea no urinary symptoms On 05/10/2024 patient is alert and oriented x 3. Patient has been transitioned to p.o. prednisone. Head CT completed showing nonspecific dilated bilateral superior ophthalmic veins. At this time will consult neurology services for further recommendations. Carotid Doppler completed showing no significant juliano nosis. Current vital signs temp 98.1, heart rate 78, respiratory rate 17, blood pressure 157/81 with a pulse ox of 94% on 3 L. Patient denies chest pain or shortness of breath. Patient denies nausea vomiting or diarrhea. Patient denies any urinary burning frequency Objective - Vital Signs Vital signs: Vital Signs Temp 98.1 F 05/10/24 06:48 Pulse 76 05/10/24 09:24 Resp 17 05/10/24 06:48 BP 157/81 05/10/24 06:48 Pulse Ox 94 L 05/10/24 09:14 FiO2 Intake & Output 05/09/24 05/10/24 05/10/24 18:59 06:59 18:59 Intake Total 150 Balance 150 Weight 106.3 kg Intake: Oral 150 Other: # Voids 3 4 1 # Bowel Movements 1 - Labs CBC & Chem 7: 05/10/24 03:19 05/10/24 03:19 Labs: Abnormal Lab Results - Last 24 Hours (Table) 05/09/24 05/09/24 05/10/24 Range/Units 09:06 09:06 03:19 RBC 5.43 H (3.80-5.40) m/uL Hgb 17.4 H 15.3 H (11.4-16.0) gm/dL Hct 59.0 H* 51.0 H (34.0-46.0) % MCV 108.7 H 106.3 H (80.0-100.0) fL MCHC 29.4 L 30.0 L (31.0-37.0) g/dL Plt Count 112 L (140-440) X 10*3/uL Immature Gran # 0.06 H (0.00-0.04) X 10*3/uL Lymphocytes # 0.8 L (1.0-4.8) k/uL Eosinophils # 0 L (0.04-0.35) X 10*3/uL Chloride (96-109) mmol/L Carbon Dioxide (21.6-31.8) mmol/L BUN/Creatinine Ratio (12.00-20.00) Ratio Glucose (70-110) mg/dL Total Bilirubin (0.3-1.2) mg/dL Total Protein (6.2-8.2) g/dL Albumin (3.8-4.9) g/dL Cholesterol 275.00 H (0.00-200.00) mg/dL LDL Cholesterol, Calc 161.7 H (0.0-131.0) mg/dL HDL Cholesterol 87.90 H (40.00-60.00) mg/dL 05/10/24 Range/Units 03:19 RBC (3.80-5.40) m/uL Hgb (11.4-16.0) gm/dL Hct (34.0-46.0) % MCV (80.0-100.0) fL MCHC (31.0-37.0) g/dL Plt Count (140-440) X 10*3/uL Immature Gran # (0.00-0.04) X 10*3/uL Lymphocytes # (1.0-4.8) k/uL Eosinophils # (0.04-0.35) X 10*3/uL Chloride 94 L (96-109) mmol/L Carbon Dioxide 37.8 H (21.6-31.8) mmol/L BUN/Creatinine Ratio 26.62 H (12.00-20.00) Ratio Glucose 133 H (70-110) mg/dL Total Bilirubin <0.2 L (0.3-1.2) mg/dL Total Protein 5.6 L (6.2-8.2) g/dL Albumin 3.6 L (3.8-4.9) g/dL Cholesterol (0.00-200.00) mg/dL LDL Cholesterol, Calc (0.0-131.0) mg/dL HDL Cholesterol (40.00-60.00) mg/dL
--- NOTE | 2024-05-10 12:27 | P.PN ---
Subjective Progress Note Date: 05/10/24 Patient is a 69-year-old white female with past medical history significant for asthma/COPD, current everyday smoker, GERD. Her primary care provider is Dr. Jovel. She does have history of oxygen dependent COPD. Previously followed with Dr. Renate Lopez, but not currently following with any oracle developer. She is normally maintained on 2 to 3 L of nasal cannula 20/02. She is being evaluated in the emergency department. She is sitting up in the bedside recliner. Alert and oriented. She is resting comfortably on 3 L/min nasal cannula. No signs of CO2 narcosis. She feels that her asthma/COPD is active. Over the last 3 days she has had progressively worsening shortness of breath. Denies fevers. Denies URI-like symptoms. She has a congested cough which is mostly nonproductive. Denies chest pain. Denies hemoptysis. She continues to smoke approximately 1/2 pack/day. Viral screen negative for COVID, influenza, RSV. Denies sick contacts. Chest x-ray showing cardiomegaly and possible mild pulmonary vascular congestion. NT proBNP was only 581. She was initiated on Lasix 40 mg twice daily in the emergency department. Troponin less than 0.012. EKG: Normal sinus rhythm, 90 bpm, no acute ischemic changes. Denies chest pain or increased lower extremity swelling. Endorses orthopnea. CBC: WBC count 6.8, hemoglobin 15.1, hematocrit 49.4, platelets 146. CMP: Sodium 137, potassium 4 .5, chloride 94, serum bicarb 41, BUN 5, creatinine 0.45, glucose 110. Lactic 0.9. LFTs unremarkable. Hemodynamics are fairly stable. Blood pressure hypertensive. The patient is seen today May 07, 2024 in follow-up on the regular medical floor. She is awake and alert in no acute distress. Maintaining good O2 saturation in the 90s on 2 L/min per nasal cannula. She has been afebrile. Hem odynamically stable. Procalcitonin negative at 0.05. Antibiotics discontinued. Continued on DuoNebs, Pulmicort, Singulair Solu-Medrol. NicoDerm patch in place. The patient is seen today May 08, 2024 in follow-up on the regular medical floor. She is currently sitting up in a chair at the bedside. Awake and alert in no acute distress. Maintaining good O2 saturations in the 90s on 2 L/min per nasal cannula. She is continued on DuoNeb and elations, Pulmicort inhalations, Solu-Medrol. NicoDerm patch in place. Lovenox for DVT prophylaxis. White count 5.1. Hemoglobin 15.0. Platelets 114. Sodium 137. Potassium 4.5. Bicarb 37. BUN 18. Creatinine 0.6. Glucose 168. The patient is seen today May 09, 2024 in follow-up on the regular medical floor. She is currently sitting up in a chair at the bedside. Awake and alert in no acute distress. She is maintaining O2 saturations in the 90s on 3 L/min per nasal cannula.. She is afebrile. Hemodynamically stable. White count 8.4. Hemoglobin 17.4. Platelets 155. Sodium 138. Potassium 4.9. Bicarb 38. BUN 19. Creatinine 0.8. Glucose 124. She remains on DuoNeb inhalations, Pulmicort inhalations, Solu-Medrol. NicoDerm patch in place. Lovenox for DVT prophylaxis. The patient is seen today May 10, 2024 in follow-up on the regular medical floor. She is currently resting comfortably in bed. Awake and alert in no acute distress. Maintaining good O2 saturations in the 90s on 2 L/min per nasal cannula. Carotid Dopplers revealed no significant stenosis. Blood culture revealed no growth. White count 6.6. Hemoglobin 15.3. Platelets 112. Sodium 138. Potassium 4.6. Bicarb 38. BUN 21. Creatinine 0.8. Glucose 133. She remains on DuoNeb inhalations, Symbicort, Singulair, Solu-Medrol. Lovenox for D VT prophylaxis. NicoDerm patch in place. Continued on Diamox. Objective - Vital Signs Vital signs: Vital Signs Temp 98.1 F 05/10/24 06:48 Pulse 76 05/10/24 09:24 Resp 17 05/10/24 06:48 BP 157/81 05/10/24 06:48 Pulse Ox 94 L 05/10/24 09:14 FiO2 Intake & Output 05/09/24 05/10/24 05/10/24 18:59 06:59 18:59 Intake Total 150 Balance 150 Weight 106.3 kg Intake: Oral 150 Other: # Voids 3 4 1 # Bowel Movements 1 - Exam GENERAL EXAM: Alert, 69-year-old obese female, resting in bed, on 2 L/min per nasal cannula, in no apparent distress. HEAD: Normocephalic and atraumatic EYES: Normal reaction of pupils, equal size. NOSE: Clear with pink turbinates. THROAT: No erythema or exudates. NECK: No masses, no JVD. CHEST: No chest wall deformity. LUNGS: Equal air entry with faint wheezing and rhonchi heard bilaterally and throughout. CVS: S1 and S2 normal with no audible murmur, regular rhythm. No extra heart sounds ABDOMEN: No hepatosplenomegaly, active bowel sounds, no guarding or rigidity. SPINE: No scoliosis or deformity SKIN: No rashes CENTRAL NERVOUS SYSTEM: No focal deficits, tone is normal in all 4 extremities. EXTREMITIES: There is no peripheral edema, clubbing, or cyanosis. Peripheral pulses are intact. - Labs CBC & Chem 7: 05/10/24 03:19 05/10/24 03:19 Labs: Abnormal Lab Results - Last 24 Hours (Table) 05/09/24 05/10/24 05/10/24 Range/Units 09:06 03:19 03:19 Hgb 15.3 H (12.0-15.0) g/dL Hct 51.0 H (37.2-46.3) % MCV 106.3 H (80.0-97.0) FL MCHC 30.0 L (32.0-37.0) g/dL Plt Count 112 L (140-440) X 10*3/uL Immature Gran # 0.06 H (0.00-0.04) X 10*3/uL Eosinophils # 0 L (0.04-0.35) X 10*3/uL Chloride 94 L (96-109) mmol/L Carbon Dioxide 37.8 H (21.6-31.8) mmol/L BUN/Creatinine Ratio 26.62 H (12.00-20.00) Ratio Glucose 133 H (70-110) mg/dL Total Bilirubin <0.2 L (0.3-1.2) mg/dL Total Protein 5.6 L (6.2-8.2) g/dL Albumin 3.6 L (3.8-4.9) g/dL Cholesterol 275.00 H (0.00-200.00) mg/dL LDL Cholesterol, Calc 161.7 H (0.0-131.0) mg/dL HDL Cholesterol 87.90 H (40.00-60.00) mg/dL Assessment and Plan Assessment: Acute COPD exacerbation Acute exacerbation of diastolic congestive heart failure; chest x-ray showing cardiomegaly and possible mild pulmonary vascular congestion. NT proBNP only mildly elevated at 581. Acute on chronic hypoxemic respiratory failure, secondary to above Chronic hypoxemic respiratory failure, normally maintained on 2 to 3 L on an outpatient basis Chronic ongoing tobacco dependence, with over [id number] history Hypertension History of GERD Morbid obesity, with BMI of 38.3 kg/m Plan: The patient was seen and evaluated Labs and medications reviewed Carotid Doppler revealed no stenosis CT scan of the brain reviewed Neurology consult pending Has home oxygen/breathing treatments Complete a prednisone taper Plan is for home with home care at discharge I have personally seen and examined the patient, performed the documentation and the assessment and plan as written. Number of minutes spent on the visit: 10.
--- NOTE | 2024-05-10 16:33 | P.CNNES ---
History of Present Illness Consult date: 05/10/24 Requesting physician: Neida Ordoñez Reason for Consult: abnormal ct History of Present Illness: This is a 69 year-old woman with history of COPD, tobacco use who presents for shortness of breath. She notified me that she came in because of COPD exacerbation. Neurology is consulted for abnormal CT head. It showed n onspecific dilated bilateral superior ophthalamic vein with variety of etiology. Patient does not provide full history since she was sleepy while sitting on a chair. Patient stated that for the past few weeks she had dizziness and she could not describe dizziness if was at rest or with position but she stated as a result of dizziness she fell and hit her head and ever since hitting her head a few weeks ago she has been having headache and she feels all over her head throbbing and she rates it 4-5 out of 10 and is constant. She does feel nauseous. No vomiting. She stated since the head trauma she has been having blurred vision of both eyes. Denies any focal weakness or numbness. Denies any speech difficulty. Denies any difficulty swallowing. Denies any recent fevers. She stated that she had a TIA in the past as well as has vertigo. She has underlying history of COPD and she smoked half a pack a day. Some of the workup in the hospital during this admission consisted of: Initial presentation patient's pulse ox was 88% on 3 L of oxygen she was tachypneic of 26. HbA1c: 5.5 TSH: 0.485 Lipid Panel is triglyceride 127, cholesterol 275, LDL is 161 and HDL is 87. CT head showed nonspecific dilated bilateral superior ophthalamic vein with variety of etiology as vascular malformation, thrombosis versus other such increased intracranial pressure. Consider further evaluation with MRI brain orbit with IV contrast. No CT evidenc for hemorrhage, CVA or sgnificant mass effect. I personally reviewed CT and agree there is no acute or subacute stroke. I spoke with Dr. Santiago as second opinion and he felt dilaterl ophthalamic vein was more right > left. Carotid duplex is reported as no significant stenosis or atherosclerotic changes based on the color and gillespie scale imaging. No hemodynamically significant stenosis based on peak systolic velocity and ratio's. The echo is reported as technically difficult study. Definity echo contrast used for improved visualization of the Endo cardial borders. Normal left ventricle size systolic function. Very limited Doppler study. Moderate pericardial effusion with no evidence of tamponade. Review of Systems Limited Past Medical History Past Medical History: Asthma, COPD, Rheumatoid Arthritis (RA) History of Any Multi-Drug Resistant Organisms: None Reported Past Surgical History: Joint Replacement, Orthopedic Surgery Past Psychological History: No Psychological Hx Reported Smoking Status: Current every day smoker Past Alcohol Use History: None Reported Past Drug Use History: Marijuana Medications and Allergies Home Medications Medication Instructions Recorded Confirmed Type Albuterol Sulfate [Albuterol 2 puff PO RT-QID PRN 05/05/24 05/05/24 History Sulfate Hfa] Budesonide [Pulmicort] 0.5 mg INHALATION RT-BID 05/05/24 05/05/24 History Ergocalciferol (Vitamin D2) 1,250 mcg PO Q7D 05/05/24 05/05/24 History [Drisdol (50,000 Iu)] Escitalopram [Lexapro] 10 mg PO HS 05/05/24 05/05/24 History Gabapentin [Neurontin] 300 mg PO TID 05/05/24 05/05/24 History HYDROcodone/APAP 10-325MG [[place] 1 tab PO TID 05/05/24 05/05/24 History 10-325] Ipratropium-Albuterol Nebulize 3 ml INHALATION RT-TID 05/05/24 05/05/24 History [Duoneb 0.5 mg-3 mg/3 ml Soln] Latanoprost [Latanoprost 0.005%] 1 drop BOTH EYES HS 05/05/24 05/05/24 History Montelukast [Singulair] 10 mg PO HS 05/05/24 05/05/24 History Omeprazole [PriLOSEC] 20 mg PO BID 05/05/24 05/05/24 History Temazepam [Restoril] 15 mg PO HS 05/05/24 05/05/24 History tiZANidine HCL 8 mg PO BID 05/05/24 05/05/24 History Allergies Allergy/AdvReac Type Severity Reaction Status Date / Time No Known Allergies Allergy Verified 05/05/24 18:44 Physical Examination - Vital Signs Vital Signs: Vital Signs Temp Pulse Pulse Resp BP Pulse Ox 05/10/24 14:40 86 90 L 05/10/24 14:25 97.8 F 91 19 135/69 86 L 05/10/24 13:14 75 05/10/24 09:24 76 05/10/24 09:14 78 94 L 05/10/24 06:48 98.1 F 78 17 157/81 92 L 05/10/24 00:28 98.1 F 68 14 117/62 92 L 05/09/24 20:49 74 18 05/09/24 20:44 76 18 05/09/24 19:16 98.2 F 88 17 144/74 92 L Intake and Output 05/10/24 05/10/24 05/10/24 06:59 14:59 22:59 Other: # Voids 4 1 1 # Bowel Movements 1 Weight 106.3 kg General: Sitting on recliner chair and is not in acute distress. Respiratory: On nasal canaluli. Has coarse lungs. Neuro: Limited because she was sleeping in between. Patient is oriented to self she correctly stated she is in the hospital. She was correctly stated the year but did not know with the month. She is following simple commands. No aphasia. Pupils are round about 3 mm and reactive to light. Visual smith are full to confrontation. Extraocular moods intact no nystagmus. Normal facial sensation to touch. No facial weakness. No dysarthria Motor strength was hard to assess individual muscle strength because of her cooperation but was able to lift up all extremity above gravity and appears symmetrical. No spontaneous movement. Normal tone and bulk Sensation appears normal throughout to touch. Reflexes is 2 positive. Plantars are mute. Results - Laboratory Findings CBC and BMP: 05/10/24 03:19 05/10/24 03:19 Abnormal Lab Findings: Abnormal Labs 05/05/24 05/05/24 05/06/24 16:59 16:59 06:48 RBC Hgb 17.2 H Hct 49.4 H 54.5 H MCV 107.4 H 105.6 H MCH MCHC 30.4 L Plt Count 146 L 146 L Immature Gran # Lymphocytes # 0.7 L Monocytes # Eosinophils # Macrocytosis (manual) Chloride 94 L Carbon Dioxide 41 H* BUN 5 L Creatinine 0.45 L BUN/Creatinine Ratio Glucose 110 H Total Bilirubin Total Protein 6.0 L Albumin 3.4 L Cholesterol LDL Cholesterol, Calc HDL Cholesterol 05/06/24 05/08/24 05/08/24 06:48 02:55 02:55 RBC Hgb Hct 48.9 H MCV 106.8 H MCH 32.8 H MCHC 30.7 L Plt Count 114 L Immature Gran # Lymphocytes # 0.48 L Monocytes # 0.14 L Eosinophils # 0 L Macrocytosis (manual) 2+ A Chloride 91 L 92 L Carbon Dioxide 49 H* 36.9 H BUN Creatinine BUN/Creatinine Ratio 29.67 H Glucose 124 H 168 H Total Bilirubin <0.2 L Total Protein 5.9 L Albumin 3.7 L Cholesterol LDL Cholesterol, Calc HDL Cholesterol 05/09/24 05/09/24 05/09/24 09:06 09:06 09:06 RBC 5.43 H Hgb 17.4 H Hct 59.0 H* MCV 108.7 H MCH MCHC 29.4 L Plt Count Immature Gran # Lymphocytes # 0.8 L Monocytes # Eosinophils # Macrocytosis (manual) Chloride 97 L Carbon Dioxide 38 H BUN 19 H Creatinine BUN/Creatinine Ratio Glucose 124 H Total Bilirubin Total Protein Albumin Cholesterol 275.00 H LDL Cholesterol, Calc 161.7 H HDL Cholesterol 87.90 H 05/10/24 05/10/24 03:19 03:19 RBC Hgb 15.3 H Hct 51.0 H MCV 106.3 H MCH MCHC 30.0 L Plt Count 112 L Immature Gran # 0.06 H Lymphocytes # Monocytes # Eosinophils # 0 L Macrocytosis (manual) Chloride 94 L Carbon Dioxide 37.8 H BUN Creatinine BUN/Creatinine Ratio 26.62 H Glucose 133 H Total Bilirubin <0.2 L Total Protein 5.6 L Albumin 3.6 L Cholesterol LDL Cholesterol, Calc HDL Cholesterol Assessment and Plan Assessment: This is a 69-year-old woman with a history of COPD, tobacco use who presents to the emergency department because of shortness of breath. She stated that a few weeks ago she had dizziness as a result her head. Since her head trauma she stated that she is having headache throughout the whole head and it is 4-5 out of 10, she has visual disturbance, dizziness. Denies any focal deficit. CT of the head shows nonspecific dilated bilateral superior ophthalmic vein with different etiology. I spoke with Dr. Espinoza, reading the radiologist as a second opinion and he felt the right is worse than the left presentation patient was hypoxic. Dizziness with headache and visual disturbance and on the CT showed nonspecific dilated bilateral superior ophthalmic vein: Rule out vascular malformation versus venous thrombosis versus intracranial pressure. Acute COPD exacerbation Acute exacerbation of diastolic congestive heart failure History of TIA. Chronic hypoxic respiratory failure on home oxygen Chronic ongoing tobacco use Hypertension Plan: I ordered CT a of the head and CT venogram of the head stat. I ordered MRI of the brain and MRI of the orbit Recommend ophthalmology consultation. I ordered vitamin B12. Pulmonary team is consulted. Consulted physical therapy and Occupational Therapy. Will defer for the rest of the medical management to primary and other specialist Thank you for the consultation. Time with Patient: Greater than 30
--- NOTE | 2024-05-10 18:04 | CT ---
EXAMINATION TYPE: CT Venogram Head DATE OF EXAM: 05/10/2024 5:57 PM COMPARISON: None HISTORY: headache, dizziness CT DLP: 204.4 mGycm Automated exposure control for dose reduction was used. TECHNIQUE: Performed with IV Contrast, patient injected with 100 ml mL of Isovue 370. . FINDINGS: The dural venous sinuses appear patent without evidence for filling defect. No abnormal foci of alter ed attenuation are seen within the brain parenchyma. No definite evidence for intracranial hemorrhage . No definite evidence for cavernous sinus thrombosis. IMPRESSION: NO CT EVIDENCE TO SUGGEST DURAL VENOUS SINUS THROMBOSIS AT THIS TIME. [facility], , 05/10/2024 6:02 PM
--- NOTE | 2024-05-10 18:06 | CT ---
EXAMINATION TYPE: CT angio head neck DATE OF EXAM: 05/10/2024 COMPARISON: None HISTORY: headache, dizziness CT DLP: 648.6 mGycm CONTRAST: Performed with IV Contrast, patient injected with 100 ml mL of Isovue 370. Combination Contrast CTA cervical carotids and [place] CTA cervical carotids with 3-D recons truction Contrast CTA of the cervical carotids was performed 3-D reconstruction imaging obtained at a separate workstation. Right carotid system: Mild plaque is seen of the right common carotid artery. There is mild plaque a lso noted at the carotid bulb and proximal ICA. No significant diameter reduction. ECA is patent. Right vertebral artery appears unremarkable. Left carotid system: Mild plaque is seen of the left common carotid artery. There is mild plaque als o noted at the carotid bulb and proximal ICA. No significant diameter reduction. ECA is patent. Lef t vertebral artery appears unremarkable. Thyroid glandular enlargement with multiple nodules identified. Correlate with ultrasound. IMPRESSION: 1. No significant diameter reduction to account for the patient's symptoms. CTA [place] with 3-D reconstruction Contrast CTA of the [place] was performed 3-D reconstruction imaging obtained at a separate workstation. Vertebrobasilar system as well as intracranial portions of the internal carotid arteries and their [place] tributaries are patent. I do not see evidence for sizable aneurysm or vascular malformation. Pl ease note MRI provides greater sensitivity and specificity. Visualized brain appears grossly unremar kable. IMPRESSION: 1. No significant abnormality. NASCET criteria was used in interpretation of this exam? [facility], , 05/10/2024 6:03 PM
[2024-05-11 03:53] LABS: Glucose,Whole Blood 87 mg/dL (70-110)
[2024-05-11 09:00] LABS: Basophils # (A) 0.02 X 10*3/uL (0.00-0.10); Basophils % (A) 0.3 %; Eosinophils # (A) 0.01 X 10*3/uL (0.04-0.35); Eosinophils % (A) 0.1 %; HCT 52.9 % (37.2-46.3); HGB 15.7 g/dL (12.0-15.0); Lymphocytes # (A) 1.45 X 10*3/uL (0.90-5.00); Lymphocytes % (A) 20.1 %; MCH 32.4 pg (27.0-32.0); MCHC 29.7 g/dL (32.0-37.0); MCV 109.1 FL (80.0-97.0); Monocytes # (A) 0.52 X 10*3/uL (0.20-1.00); Monocytes % (A) 7.2 %; NRBC Per 100 WBC 0 X 10*3/uL (0.00-0.01); Neutrophils # (A) 5.15 X 10*3/uL (1.80-7.70); Neutrophils % (A) 71.2 %; Platelet Count 109 X 10*3/uL (140-440); RBC 4.85 X 10*6/uL (4.10-5.20); RDW 12.8 % (11.5-14.5); WBC 7.23 X 10*3/uL (4.50-10.00)
[2024-05-11 09:38] LABS: ALT 17 U/L (8-44); AST 14 U/L (13-35); Albumin 3.6 g/dL (3.8-4.9); Albumin/Globulin Ratio 2.12 Ratio (1.60-3.17); Alkaline Phosphatase 59 U/L (41-126); BUN/Creat Ratio 33.17 Ratio (12.00-20.00); Blood Urea Nitrogen 19.9 mg/dL (9.0-27.0); Calcium 8.6 mg/dL (8.7-10.3); Chloride 101 mmol/L (96-109); Globulin 1.7 g/dL (1.6-3.3); Glucose 93 mg/dL (70-110); Potassium 4.6 mmol/L (3.5-5.5); Sodium 146 mmol/L (135-145); Total Bilirubin 0.3 mg/dL (0.3-1.2); Total Protein 5.3 g/dL (6.2-8.2)
--- NOTE | 2024-05-11 10:28 | P.PN ---
Subjective Progress Note Date: 05/10/24 Fern Nickerson, is a 69-year-old female who presented to [facility] emergency room with a chief complaint of worsening shortness of breath She was evaluated in the emergency room vital examination on presentation revealed a temperature of 98 pulse 93 respiration 26 blood pressure 134/74 pulse ox 88% on 3 L nasal cannula Laboratory data reveals a white blood count of 6.8 hemoglobin 15.1 platelet count 146 BUN 5 creatinine 0.45 Testing in the emergency room revealed EKG revealed sinus rhythm normal EKG, chest x-ray revealed cardiomegaly with pulmonary vascular congestion Patient was admitted to medical floor for further evaluation and treatment Past medical history is significant for underlying history of COPD, history of chronic hypoxic and hypercapnic respiratory failure history of asthma, history of rheumatoid arthritis, history of osteoarthritis, prolonged history of tobacco use. On review of systems patient is alert and oriented x 3 in no apparent distress she denies any fever or chills no headache or dizziness no chest pain she stated that she is having shortness of breath with any activity no palpitation no cough no sputum production no nausea or vomiting no abdominal pain no diarrhea no blood in the stools, she has frequency and urgency with urination no hematuria. On 05/07/2024 patient is alert and oriented x 3. Patient remains on azithromycin, IV Solu-Medrol and Diamox. Cardiology and pulmonary services are following. 2D echo has been ordered. Current vital signs temp 98.5, heart rate 88, respiratory rate 18, blood pressure 143/75 with a pulse ox of 90% on 4 L On 05/08/2024 patient was seen and examined on the medical floor she is alert and oriented x 3 in no apparent distress, there is no fever or chills no headache or dizziness no chest pain, she is still having severe shortness of breath with any activity, she is still complaining of cough, no palpitation no nausea or vomiting no abdominal pain no diarrhea, she is still complaining of frequency with urination. CO2 has improved from 49-36.9 patient is maintained on oral Diamox, will continue with IV Solu-Medrol and inhaled bronchodilators, will continue to follow closely. On 05/09/2024 patient was seen and examined on the medical floor she is alert and oriented x 3 in no apparent distress she is still complaining of shortness of breath with any activity she is also complaining of dizziness otherwise she denies any complaints at this time there is no fever or chills no headache no chest pain no nausea or vomiting no abdominal pain no diarrhea no urinary symptoms. On 05/10/2024 patient is alert and oriented x 3. Patient has been transitioned to p.o. prednisone. Head CT completed showing nonspecific dilated bilateral superior ophthalmic veins. At this time will consult neurology services for further recommendations. Carotid Doppler completed showing no significant st enosis. Current vital signs temp 98.1, heart rate 78, respiratory rate 17, blood pressure 157/81 with a pulse ox of 94% on 3 L. Patient denies chest pain or shortness of breath. Patient denies nausea vomiting or diarrhea. Patient denies any urinary burning frequency Objective - Vital Signs Vital signs: Vital Signs Temp 98.1 F 05/10/24 00:28 Pulse 68 05/10/24 00:28 Resp 14 05/10/24 00:28 BP 117/62 05/10/24 00:28 Pulse Ox 92 L 05/10/24 00:28 FiO2 Intake & Output 05/09/24 05/10/24 05/10/24 18:59 06:59 18:59 Intake Total 150 Balance 150 Weight 106.3 kg Intake: Oral 150 Other: # Voids 3 4 - Exam In general patient is alert and oriented x 3 in no distress HEENT head normocephalic and atraumatic Neck is supple no JVD no goiter no lymphadenopathy no carotid bruit Chest examination reveals a scattered crackles bilaterally with wheezing and prolonged expiratory phase Cardiac exam reveals regular heart sounds S1 and S2 no gallops no murmurs Abdomen is soft nontender no organomegaly with normal bowel sounds Extremity exam reveals no edema no cyanosis or clubbing Neurological examination reveals no gross focal deficits - Labs CBC & Chem 7: 05/11/24 03:39 05/11/24 03:39 Labs: Abnormal Lab Results - Last 24 Hours (Table) 05/09/24 05/09/24 05/09/24 Range/Units 09:06 09:06 09:06 RBC 5.43 H (3.80-5.40) m/uL Hgb 17.4 H (11.4-16.0) gm/dL Hct 59.0 H* (34.0-46.0) % MCV 108.7 H (80.0-100.0) fL MCHC 29.4 L (31.0-37.0) g/dL Lymphocytes # 0.8 L (1.0-4.8) k/uL Chloride 97 L (98-107) mmol/L Carbon Dioxide 38 H (22-30) mmol/L BUN 19 H (7-17) mg/dL Glucose 124 H (74-99) mg/dL Cholesterol 275.00 H (0.00-200.00) mg/dL LDL Cholesterol, Calc 161.7 H (0.0-131.0) mg/dL HDL Cholesterol 87.90 H (40.00-60.00) mg/dL Assessment and Plan Plan: Acute exacerbation of chronic obstructive pulmonary disease Acute on chronic hypoxic and hypercapnic respiratory failure Ongoing tobacco abuse patient was counseled in length regarding smoking cessation Possible congestive heart failure, with chest x-ray revealing cardiomegaly and pulmonary congestion, will check BNP and consult cardiology Underlying history of hypertension Underlying history of hyperlipidemia Underlying history of gastroesophageal reflux disease Underlying history of morbid obesity Possible obstructive sleep apnea At this time patient was seen and examined Home medications reviewed and reordered She was started on IV Solu-Medrol in the emergency room Inhaled bronchodilators and inhaled steroid continued Cardiology and pulmonary consultation requested For DVT prophylaxis subcu Lovenox Patient was counseled regarding smoking cessation Will follow closely
--- NOTE | 2024-05-11 11:57 | P.PN ---
Subjective Progress Note Date: 05/11/24 Patient is a 69-year-old white female with past medical history significant for asthma/COPD, current everyday smoker, GERD. Her primary care provider is Dr. Jovel. She does have history of oxygen dependent COPD. Previously followed with Dr. Renate Lopez, but not currently following with any manager membership. She is normally maintained on 2 to 3 L of nasal cannula 20/02. She is being evaluated in the emergency department. She is sitting up in the bedside recliner. Alert and oriented. She is resting comfortably on 3 L/min nasal cannula. No signs of CO2 narcosis. She feels that her asthma/COPD is active. Over the last 3 days she has had progressively worsening shortness of breath. Denies fevers. Denies URI-like symptoms. She has a congested cough which is mostly nonproductive. Denies chest pain. Denies hemoptysis. She continues to smoke approximately 1/2 pack/day. Viral screen negative for COVID, influenza, RSV. Denies sick contacts. Chest x-ray showing cardiomegaly and possible mild pulmonary vascular congestion. NT proBNP was only 581. She was initiated on Lasix 40 mg twice daily in the emergency department. Troponin less than 0.012. EKG: Normal sinus rhythm, 90 bpm, no acute ischemic changes. Denies chest pain or increased lower extremity swelling. Endorses orthopnea. CBC: WBC count 6.8, hemoglobin 15.1, hematocrit 49.4, platelets 146. CMP: Sodium 137, potassium 4 .5, chloride 94, serum bicarb 41, BUN 5, creatinine 0.45, glucose 110. Lactic 0.9. LFTs unremarkable. Hemodynamics are fairly stable. Blood pressure hypertensive. The patient is seen today May 07, 2024 in follow-up on the regular medical floor. She is awake and alert in no acute distress. Maintaining good O2 saturation in the 90s on 2 L/min per nasal cannula. She has been afebrile. Hem odynamically stable. Procalcitonin negative at 0.05. Antibiotics discontinued. Continued on DuoNebs, Pulmicort, Singulair Solu-Medrol. NicoDerm patch in place. The patient is seen today May 08, 2024 in follow-up on the regular medical floor. She is currently sitting up in a chair at the bedside. Awake and alert in no acute distress. Maintaining good O2 saturations in the 90s on 2 L/min per nasal cannula. She is continued on DuoNeb and elations, Pulmicort inhalations, Solu-Medrol. NicoDerm patch in place. Lovenox for DVT prophylaxis. White count 5.1. Hemoglobin 15.0. Platelets 114. Sodium 137. Potassium 4.5. Bicarb 37. BUN 18. Creatinine 0.6. Glucose 168. The patient is seen today May 09, 2024 in follow-up on the regular medical floor. She is currently sitting up in a chair at the bedside. Awake and alert in no acute distress. She is maintaining O2 saturations in the 90s on 3 L/min per nasal cannula.. She is afebrile. Hemodynamically stable. White count 8.4. Hemoglobin 17.4. Platelets 155. Sodium 138. Potassium 4.9. Bicarb 38. BUN 19. Creatinine 0.8. Glucose 124. She remains on DuoNeb inhalations, Pulmicort inhalations, Solu-Medrol. NicoDerm patch in place. Lovenox for DVT prophylaxis. The patient is seen today May 10, 2024 in follow-up on the regular medical floor. She is currently resting comfortably in bed. Awake and alert in no acute distress. Maintaining good O2 saturations in the 90s on 2 L/min per nasal cannula. Carotid Dopplers revealed no significant stenosis. Blood culture revealed no growth. White count 6.6. Hemoglobin 15.3. Platelets 112. Sodium 138. Potassium 4.6. Bicarb 38. BUN 21. Creatinine 0.8. Glucose 133. She remains on DuoNeb inhalations, Symbicort, Singulair, Solu-Medrol. Lovenox for D VT prophylaxis. NicoDerm patch in place. Continued on Diamox. The patient is seen today May 11, 2024 in follow-up on the regular medical floor. She is currently sitting up in a chair. Awake and alert in no acute distress. Maintaining O2 saturations in the 90s on 4 L/min per nasal cannula. She states she did have a fall last evening. This was witnessed by the nurse bilingual legal assistant and the patient legs gave out from under her while ambulating to the bathroom and she landed on her buttocks and rolled onto her back. Denies any significant injury. Head CT angiogram and CT angiography revealed no acute process. White count 7.2. Hemoglobin 15.7. Platelets 109. Sodium 146. Potassium 4.6. Bicarb 39. BUN 20. Creatinine 0.6. Glucose 93. She remains on DuoNeb inhalations, Symbicort, Singulair, prednisone. Lovenox for DVT prophylaxis. NicoDerm patch in place. Continued on Diamox. Objective - Vital Signs Vital signs: Vital Signs Temp 98.3 F 05/11/24 06:40 Pulse 76 05/11/24 08:32 Resp 17 05/11/24 06:40 BP 148/75 05/11/24 06:40 Pulse Ox 93 L 05/11/24 06:40 FiO2 Intake & Output 05/10/24 05/11/24 05/11/24 18:59 06:59 18:59 Weight 107.5 kg Other: # Voids 1 1 1 # Bowel Movements 1 - Exam GENERAL EXAM: Alert, 69-year-old obese female, sitting up in a chair, on 3 L/min per nasal cannula, in no apparent distress. HEAD: Normocephalic and atraumatic EYES: Normal reaction of pupils, equal size. NOSE: Clear with pink turbinates. THROAT: No erythema or exudates. NECK: No masses, no JVD. CHEST: No chest wall deformity. LUNGS: Equal air entry with faint wheezing and rhonchi heard bilaterally and throughout. CVS: S1 and S2 normal with no audible murmur, regular rhythm. No extra heart sounds ABDOMEN: No hepatosplenomegaly, active bowel sounds, no guarding or rigidity. SPINE: No scoliosis or deformity SKIN: No rashes CENTRAL NERVOUS SYSTEM: No focal deficits, tone is normal in all 4 extremities. EXTREMITIES: There is no peripheral edema, clubbing, or cyanosis. Peripheral pulses are intact. - Labs CBC & Chem 7: 05/11/24 03:39 05/11/24 03:39 Labs: Abnormal Lab Results - Last 24 Hours (Table) 05/11/24 05/11/24 Range/Units 03:39 03:39 Hgb 15.7 H (12.0-15.0) g/dL Hct 52.9 H (37.2-46.3) % MCV 109.1 H (80.0-97.0) FL MCH 32.4 H (27.0-32.0) pg MCHC 29.7 L (32.0-37.0) g/dL Plt Count 109 L (140-440) X 10*3/uL Immature Gran # 0.08 H (0.00-0.04) X 10*3/uL Eosinophils # 0.01 L (0.04-0.35) X 10*3/uL Sodium 146 H (135-145) mmol/L Carbon Dioxide 39.0 H (21.6-31.8) mmol/L BUN/Creatinine Ratio 33.17 H (12.00-20.00) Ratio Calcium 8.6 L (8.7-10.3) mg/dL Total Protein 5.3 L (6.2-8.2) g/dL Albumin 3.6 L (3.8-4.9) g/dL Microbiology - Last 24 Hours (Table) 05/05/24 17:10 Blood Culture - Final Blood Assessment and Plan Assessment: Acute COPD exacerbation, improved Acute exacerbation of diastolic congestive heart failure; chest x-ray showing cardiomegaly and possible mild pulmonary vascular congestion. NT proBNP only mildly elevated at 581. Acute on chronic hypoxemic respiratory failure, secondary to above Chronic hypoxemic respiratory failure, normally maintained on 2 to 3 L on an outpatient basis Chronic ongoing tobacco dependence, with over [id number] history Hypertension History of GERD Morbid obesity, with BMI of 38.3 kg/m Post fall without injury 05/10/2024 Plan: The patient was seen and evaluated Labs and medications reviewed Has home oxygen/breathing treatments Complete a prednisone taper Plan is for home with home care at discharge I have personally seen and examined the patient, performed the documentation and the assessment and plan as written. Number of minutes spent on the visit: 10. Dictation was produced using [employer] software. Please excuse any grammatical, word or spelling errors.
--- NOTE | 2024-05-11 12:52 | P.PN ---
Subjective Progress Note Date: 05/11/24 Fern Nickerson, is a 69-year-old female who presented to [facility] emergency room with a chief complaint of worsening shortness of breath She was evaluated in the emergency room vital examination on presentation revealed a temperature of 98 pulse 93 respiration 26 blood pressure 134/74 pulse ox 88% on 3 L nasal cannula Laboratory data reveals a white blood count of 6.8 hemoglobin 15.1 platelet count 146 BUN 5 creatinine 0.45 Testing in the emergency room revealed EKG revealed sinus rhythm normal EKG, chest x-ray revealed cardiomegaly with pulmonary vascular congestion Patient was admitted to medical floor for further evaluation and treatment Past medical history is significant for underlying history of COPD, history of chronic hypoxic and hypercapnic respiratory failure history of asthma, history of rheumatoid arthritis, history of osteoarthritis, prolonged history of tobacco use. On review of systems patient is alert and oriented x 3 in no apparent distress she denies any fever or chills no headache or dizziness no chest pain she stated that she is having shortness of breath with any activity no palpitation no cough no sputum production no nausea or vomiting no abdominal pain no diarrhea no blood in the stools, she has frequency and urgency with urination no hematuria. On 05/07/2024 patient is alert and oriented x 3. Patient remains on azithromycin, IV Solu-Medrol and Diamox. Cardiology and pulmonary services are following. 2D echo has been ordered. Current vital signs temp 98.5, heart rate 88, respiratory rate 18, blood pressure 143/75 with a pulse ox of 90% on 4 L On 05/08/2024 patient was seen and examined on the medical floor she is alert and oriented x 3 in no apparent distress, there is no fever or chills no headache or dizziness no chest pain, she is still having severe shortness of breath with any activity, she is still complaining of cough, no palpitation no nausea or vomiting no abdominal pain no diarrhea, she is still complaining of frequency with urination. CO2 has improved from 49-36.9 patient is maintained on oral Diamox, will continue with IV Solu-Medrol and inhaled bronchodilators, will continue to follow closely. On 05/09/2024 patient was seen and examined on the medical floor she is alert and oriented x 3 in no apparent distress she is still complaining of shortness of breath with any activity she is also complaining of dizziness otherwise she denies any complaints at this time there is no fever or chills no headache no chest pain no nausea or vomiting no abdominal pain no diarrhea no urinary symptoms. On 05/10/2024 patient is alert and oriented x 3. Patient has been transitioned to p.o. prednisone. Head CT completed showing nonspecific dilated bilateral superior ophthalmic veins. At this time will consult neurology services for further recommendations. Carotid Doppler completed showing no significant juliano nosis. Current vital signs temp 98.1, heart rate 78, respiratory rate 17, blood pressure 157/81 with a pulse ox of 94% on 3 L. Patient denies chest pain or shortness of breath. Patient denies nausea vomiting or diarrhea. Patient denies any urinary burning frequency On 05/11/2024 patient was seen and examined on the medical floor she is alert and oriented x 3 in no apparent distress she had a fall last night with bilateral knee injury, currently she is complaining of bilateral knee pain she denies any other complaints there is no fever or chills no headache or dizziness no chest pain, she stated that her shortness of breath and cough has improved there is no palpitation no nausea or vomiting no fever no diarrhea and no urinary symptoms. At this time will check bilateral knee x-ray, consultation for physical therapy and Occupational Therapy were initiated. Input from neurology reviewed awaiting results on CT angiogram of the brain and MRI of the brain. Input from pulmonary reviewed, will continue to follow closely. Objective - Vital Signs Vital signs: Vital Signs Temp 98.3 F 05/11/24 06:40 Pulse 76 05/11/24 08:32 Resp 17 05/11/24 06:40 BP 148/75 05/11/24 06:40 Pulse Ox 93 L 05/11/24 06:40 FiO2 Intake & Output 05/10/24 05/11/24 05/11/24 18:59 06:59 18:59 Weight 107.5 kg Other: # Voids 1 1 1 # Bowel Movements 1 - Exam In general patient is alert and oriented x 3 in no distress HEENT head normocephalic and atraumatic Neck is supple no JVD no goiter no lymphadenopathy no carotid bruit Chest examination reveals a scattered crackles bilaterally with wheezing and prolonged expiratory phase Cardiac exam reveals regular heart sounds S1 and S2 no gallops no murmurs Abdomen is soft nontender no organomegaly with normal bowel sounds Extremity exam reveals no edema no cyanosis or clubbing Neurological examination reveals no gross focal deficits - Labs CBC & Chem 7: 05/11/24 03:39 05/11/24 03:39 Labs: Abnormal Lab Results - Last 24 Hours (Table) 05/11/24 05/11/24 Range/Units 03:39 03:39 Hgb 15.7 H (12.0-15.0) g/dL Hct 52.9 H (37.2-46.3) % MCV 109.1 H (80.0-97.0) FL MCH 32.4 H (27.0-32.0) pg MCHC 29.7 L (32.0-37.0) g/dL Plt Count 109 L (140-440) X 10*3/uL Immature Gran # 0.08 H (0.00-0.04) X 10*3/uL Eosinophils # 0.01 L (0.04-0.35) X 10*3/uL Sodium 146 H (135-145) mmol/L Carbon Dioxide 39.0 H (21.6-31.8) mmol/L BUN/Creatinine Ratio 33.17 H (12.00-20.00) Ratio Calcium 8.6 L (8.7-10.3) mg/dL Total Protein 5.3 L (6.2-8.2) g/dL Albumin 3.6 L (3.8-4.9) g/dL Microbiology - Last 24 Hours (Table) 05/05/24 17:10 Blood Culture - Final Blood Assessment and Plan Plan: Acute exacerbation of chronic obstructive pulmonary disease Acute on chronic hypoxic and hypercapnic respiratory failure Ongoing tobacco abuse patient was counseled in length regarding smoking cessation Possible congestive heart failure, with chest x-ray revealing cardiomegaly and pulmonary congestion, will check BNP and consult cardiology Underlying history of hypertension Underlying history of hyperlipidemia Underlying history of gastroesophageal reflux disease Underlying history of morbid obesity Possible obstructive sleep apnea At this time patient was seen and examined Home medications reviewed and reordered She was started on IV Solu-Medrol in the emergency room Inhaled bronchodilators and inhaled steroid continued Cardiology and pulmonary consultation requested For DVT prophylaxis subcu Lovenox Patient was counseled regarding smoking cessation Will follow closely
[2024-05-11] MEDS ORDERED: ARTIFICIAL TEARS-HYPROMELLOSE DROPS 15 ML BTL BOTH EYES PRN (13:03)
--- NOTE | 2024-05-11 13:18 | MR ---
EXAMINATION TYPE: MR brain/orbits wo/w con DATE OF EXAM: 05/11/2024 COMPARISON: None HISTORY: Bilateral superior oph vein on CT with dizz. headache TECHNIQUE: Multiplanar, multisequence images of the brain and brainstem is performed without and with IV contras t, utilizing 10.5 mL intravenous Gadavist . FINDINGS: On the T1-weighted sagittal images, the midline structures including the cranial vertebral junction r elationships appear normal. The ventricles, basal cisterns and sulci over convexities are within normal limits for the patient's age. There is no mass effect or shift of midline structures. There are a few small focal areas of abnormal increased signal intensity in the white matter both cer ebral hemispheres consistent with mild chronic ischemic white matter change. The diffusion-weighted i mages, there is no diffusion restriction or acute ischemic event. Following contrast administration, there is no pathological enhancement throughout the brain parenchy ma. Dilated right superior ophthalmic vein is again seen as was identified on the prior CT brain dated . Contrast enhancement reveals no evidence of thrombosis. There are no secondary signs of hendrix tid cavernous fistula, Graves' disease or increased intracranial pressure. There is no evidence of or bital inflammation or cellulitis. The dilated vein may represent a isolated venous varix. The posterior fossa including the brainstem, fourth ventricle and cerebellopontine angles appear norm al. IMPRESSION: 1. Dilated right superior ophthalmic vein with no other secondary signs to suggest carotid cavernous fistula or dural cavernous fistula or superior ophthalmic vein thrombosis. 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 2. No acute ischemic event intracranially. 3. No pathological enhancement. 4. No mass effect or shift of the midline structures intracranially. [facility], , 05/11/2024 1:16 PM
[2024-05-11] MEDS: PROPARACAINE 0.5% OPHTH DROPS 15 ML BTL BOTH EYES STA (13:31)
--- NOTE | 2024-05-11 13:34 | XR ---
Bilateral knees. HISTORY: Fall. COMPARISON: None. TECHNIQUE: 6 views of the knees were obtained. FINDINGS: There is a total right knee prosthesis and there is no acute right knee fracture or focal intraosseou s abnormality. There is no fracture or dislocation or focal intraosseous abnormality left knee. There is mild narrow ing of the mediolateral compartment with hypertrophic spurring indicating mild osteoarthritis. There is moderate narrowing and hypertrophic spurring of the patellofemoral compartment and there is a calc ification in the superior lateral joint space which could represent a loose body. IMPRESSION: 1. No acute trauma to the right or left knee. 2. Total right knee prosthesis without acute fracture or loosening. 3. Left knee Tricompartment osteoarthritis with possible loose body in the superolateral joint space . [facility], , 05/11/2024 1:32 PM
[2024-05-11] MEDS: TROPICAMIDE 1% OPHTH DROPS 2 ML BTL BOTH EYES ONE (13:49)
[2024-05-11] MEDS: PHENYLEPHRINE 2.5% OPHTH DRP 2ML BOTH EYES SCH (13:49)
--- NOTE | 2024-05-11 14:28 | P.CON ---
Consult Note - . Consult date: 05/11/24 Assessment/Plan:: This is a 69 y/o female with history of glaucoma and developing cataract for some time. Her last eye examination was about a year ago. She currently uses latanoprost nightly in each eye. Her vision had been deteriorating for about 3-4 months. This is especially noticed on the right. She has resumed using an older pair of glasses to see somewhat more comfortably, she is myopic by examination of the glasses. There has been no prior diagnosis of underlying eye problems, except for the glaucoma and has had no other eye surgery. She has been postponing the cataract removal due to the out of pocket costs. Va: 20 /20 OD; 20/25 +3 OS w/ correction Ext: unremarkable, symmetrical EOM: full D&V Pupils: no APD IOP: tonopen 11 mm Hg OU @ 1345 hrs. Conj: white & quiet K: clear OU AC: D&Q OU Iris: normal without pathology Lens: 3+ NS & 3+ cortical changes OD, 3 NS OS, minimal CS changes DILATED:2.5% neosynephrine & 1% tropicamide @ 1345, OU (lasts about 6-9) Vitreous: normal syneresis Optic nerve: s/f/P, OU C:D: OS 0.5, OD not well seen Macula: poor resolution and details due to developing cataract, OS quiet, normal macula Vasc: normal caliber, OU CT: w/ contrast, enlarged ophthalmic vein right side. Possible question of a venous varix. A: 1) progressive blurring of vision OD>OS, typical of developing cataract, probably related to the underlying long-standing history of Asthma and intermittent chronic exposure to oral steroids. The glasses are an indication of typical cataract progression and increasing myopia, often seen with advanced cataract development 2) glaucoma, probably typical open angle, using latanoprost nightly, IOP is well controlled on the drops. 3) superior ophthalmic venous enlargement, without obvious ophthalmic involvement or contribution to the poor vision 4) advancing cataract OD>OS P: Recommend as planned for new intracerebral findings. Return to Dr. Jeronimo for ongoing eye care once discharged for glaucoma and cataract.
--- NOTE | 2024-05-11 15:20 | P.PN ---
Subjective Progress Note Date: 05/11/24 I am following-up with patient and denies any further nausea and denies vomiting. Still has headache. CTA and CTV is negative. Ophthalmology is consulted and he stated that her progressive blurring of the vision of the right more than the left is typically because of cataract probably related to underlying longstanding history of asthma intermittent chronic exposure to oral steroids. He felt the patient has glaucoma. He felt the superior ophthalmic vein enlargement without obvious ophthalmic involvement or contribution to the poor vision Objective - Vital Signs Vital signs: Vital Signs Temp 98.6 F 05/11/24 14:30 Pulse 78 05/11/24 14:30 Resp 19 05/11/24 14:30 BP 113/67 05/11/24 14:30 Pulse Ox 93 L 05/11/24 14:30 FiO2 Intake & Output 05/10/24 05/11/24 05/11/24 18:59 06:59 18:59 Weight 107.5 kg Other: # Voids 1 1 1 # Bowel Movements 1 - Exam General: Sitting on recliner chair and is not in acute distress. Neuro: Limited. Patient is oriented to self and hospital. She is following simple commands. No aphasia. Pupils are round about 3 mm and reactive to light. Visual smith are full to confrontation. Extraocular moods intact no nystagmus. Normal facial sensation to touch. No facial weakness. No dysarthria Motor strength was hard to assess individual muscle strength because of her cooperation but was able to lift up all extremity above gravity and appears symmetrical. No spontaneous movement. Normal tone and bulk Sensation appears normal throughout to touch. Reflexes is 2 positive. Plantars are mute. Some of the workup in the hospital during this admission consisted of: Initial presentation patient's pulse ox was 88% on 3 L of oxygen she was tachypneic of 26. HbA1c: 5.5 TSH: 0.485 Vitamin B12: 326 Lipid Panel is triglyceride 127, cholesterol 275, LDL is 161 and HDL is 87. CT head showed nonspecific dilated bilateral superior ophthalamic vein with variety of etiology as vascular malformation, thrombosis versus other such increased intracranial pressure. Consider further evaluation with MRI brain orbit with IV contrast. No CT evidenc for hemorrhage, CVA or sgnificant mass effect. I personally reviewed CT and agree there is no acute or subacute stroke. I spoke with Dr. Santiago as second opinion and he felt dilaterl ophthalamic vein was more right > left. Carotid duplex is reported as no significant stenosis or atherosclerotic changes based on the color and gillespie scale imaging. No hemodynamically significant stenosis based on peak systolic velocity and ratio's. 2D echo is reported as technically difficult study. Definity echo contrast used for improved visualization of the Endo cardial borders. Normal left ventricle size systolic function. Very limited Doppler study. Moderate pericardial effusion with no evidence of tamponade. CTV: No evidence suggest dural venous thrombosis. CTA head and neck: No Significant diameter reduction to account for the patient symptoms. MRI Brain: It is reported as dilated right superior ophthalmic vein with no other secondary signs suggest carotid cavernous fistula or dural cavernous fistula or superior ophthalmic vein thrombosis. 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 No acute ischemic event intracranial. No pathological enhancement. No mass effect or shift of the midline structures or intracranial. - Labs CBC & Chem 7: 05/11/24 03:39 05/11/24 03:39 Labs: Abnormal Lab Results - Last 24 Hours (Table) 05/11/24 05/11/24 Range/Units 03:39 03:39 Hgb 15.7 H (12.0-15.0) g/dL Hct 52.9 H (37.2-46.3) % MCV 109.1 H (80.0-97.0) FL MCH 32.4 H (27.0-32.0) pg MCHC 29.7 L (32.0-37.0) g/dL Plt Count 109 L (140-440) X 10*3/uL Immature Gran # 0.08 H (0.00-0.04) X 10*3/uL Eosinophils # 0.01 L (0.04-0.35) X 10*3/uL Sodium 146 H (135-145) mmol/L Carbon Dioxide 39.0 H (21.6-31.8) mmol/L BUN/Creatinine Ratio 33.17 H (12.00-20.00) Ratio Calcium 8.6 L (8.7-10.3) mg/dL Total Protein 5.3 L (6.2-8.2) g/dL Albumin 3.6 L (3.8-4.9) g/dL Microbiology - Last 24 Hours (Table) 05/05/24 17:10 Blood Culture - Final Blood Assessment and Plan Assessment: This is a 69-year-old woman with a history of COPD, tobacco use who presents to the emergency department because of shortness of breath. She stated that a few weeks ago she had dizziness as a result her head. Since her head trauma she stated that she is having headache throughout the whole head and it is 4-5 out of 10, she has visual disturbance, dizziness. Denies any focal deficit. CT of the head shows nonspecific dilated bilateral superior ophthalmic vein with different etiology. I spoke with Dr. Espinoza, reading the radiologist as a second opinion and he felt the right is worse than the left presentation patient was hypoxic. Visual disturbance and on the CT showed nonspecific dilated bilateral superior ophthalmic vein. Ophthalmology felt the patient has her blurring of the vision is due to her developing cataract probably related to underlying longstanding history of asthma as well as he felt the patient has glaucoma. He felt the superior ophthalmic vein enlargement is without obvious ophthalmic involvement or contribution to the poor vision. CT angiography of the head and neck as well as CT vein is negative for any venous thrombosis. 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 Cephalgia likely postraumatic Dizziness likely to postraumatic Acute COPD exacerbation Acute exacerbation of diastolic congestive heart failure History of TIA. Chronic hypoxic respiratory failure on home oxygen Chronic ongoing tobacco use Hypertension Plan: Dr. Kimble From Ophthamology is consulted and recommend patient to follow-up with Dr. Jeronimo. Low normal vitamin B12, I started the patient on vitamin b 12 1000mcg daily Pulmonary team is consulted. Consulted physical therapy and Occupational Therapy. Will defer for the rest of the medical management to primary and other specialist Will follow-up with patient sporadically. Dr. Edwards will resume neurology service on 07/13/24 A.M. Time with Patient: Less than 30
[2024-05-11] MEDS: CYANOCOBALAMIN 500 MCG TAB PO SCH (16:39)
[2024-05-12 06:19] LABS: Glucose,Whole Blood 97 mg/dL (70-110)
--- NOTE | 2024-05-12 09:38 | P.PN ---
Subjective Progress Note Date: 05/12/24 Fern Nickerson, is a 69-year-old female who presented to [facility] emergency room with a chief complaint of worsening shortness of breath She was evaluated in the emergency room vital examination on presentation revealed a temperature of 98 pulse 93 respiration 26 blood pressure 134/74 pulse ox 88% on 3 L nasal cannula Laboratory data reveals a white blood count of 6.8 hemoglobin 15.1 platelet count 146 BUN 5 creatinine 0.45 Testing in the emergency room revealed EKG revealed sinus rhythm normal EKG, chest x-ray revealed cardiomegaly with pulmonary vascular congestion Patient was admitted to medical floor for further evaluation and treatment Past medical history is significant for underlying history of COPD, history of chronic hypoxic and hypercapnic respiratory failure history of asthma, history of rheumatoid arthritis, history of osteoarthritis, prolonged history of tobacco use. On review of systems patient is alert and oriented x 3 in no apparent distress she denies any fever or chills no headache or dizziness no chest pain she stated that she is having shortness of breath with any activity no palpitation no cough no sputum production no nausea or vomiting no abdominal pain no diarrhea no blood in the stools, she has frequency and urgency with urination no hematuria. On 05/07/2024 patient is alert and oriented x 3. Patient remains on azithromycin, IV Solu-Medrol and Diamox. Cardiology and pulmonary services are following. 2D echo has been ordered. Current vital signs temp 98.5, heart rate 88, respiratory rate 18, blood pressure 143/75 with a pulse ox of 90% on 4 L On 05/08/2024 patient was seen and examined on the medical floor she is alert and oriented x 3 in no apparent distress, there is no fever or chills no headache or dizziness no chest pain, she is still having severe shortness of breath with any activity, she is still complaining of cough, no palpitation no nausea or vomiting no abdominal pain no diarrhea, she is still complaining of frequency with urination. CO2 has improved from 49-36.9 patient is maintained on oral Diamox, will continue with IV Solu-Medrol and inhaled bronchodilators, will continue to follow closely. On 05/09/2024 patient was seen and examined on the medical floor she is alert and oriented x 3 in no apparent distress she is still complaining of shortness of breath with any activity she is also complaining of dizziness otherwise she denies any complaints at this time there is no fever or chills no headache no chest pain no nausea or vomiting no abdominal pain no diarrhea no urinary symptoms. On 05/10/2024 patient is alert and oriented x 3. Patient has been transitioned to p.o. prednisone. Head CT completed showing nonspecific dilated bilateral superior ophthalmic veins. At this time will consult neurology services for further recommendations. Carotid Doppler completed showing no significant juliano nosis. Current vital signs temp 98.1, heart rate 78, respiratory rate 17, blood pressure 157/81 with a pulse ox of 94% on 3 L. Patient denies chest pain or shortness of breath. Patient denies nausea vomiting or diarrhea. Patient denies any urinary burning frequency On 05/11/2024 patient was seen and examined on the medical floor she is alert and oriented x 3 in no apparent distress she had a fall last night with bilateral knee injury, currently she is complaining of bilateral knee pain she denies any other complaints there is no fever or chills no headache or dizziness no chest pain, she stated that her shortness of breath and cough has improved there is no palpitation no nausea or vomiting no fever no diarrhea and no urinary symptoms. At this time will check bilateral knee x-ray, consultation for physical therapy and Occupational Therapy were initiated. Input from neurology reviewed awaiting results on CT angiogram of the brain and MRI of the brain. Input from pulmonary reviewed, will continue to follow closely. On 05/12/2024 patient is alert and oriented x 3. Optometry consulted recommendation of developing cataract and long standing history of asthma and oral steroids follow-up outpatient. Per nursing staff patient had episode of weakness requiring to be lowered to the floor. At this time discussed with patient that she may need rehab upon discharge will consult PT OT and social work services. Patient reports improvement with shortness of breath. Patient denies nausea vomiting or diarrhea. Patient denies any urinary burning or frequency Objective - Vital Signs Vital signs: Vital Signs Temp 97.3 F L 05/12/24 07:14 Pulse 80 05/12/24 08:35 Resp 17 05/12/24 07:14 BP 131/76 05/12/24 07:14 Pulse Ox 96 05/12/24 07:14 FiO2 Intake & Output 05/11/24 05/12/24 05/12/24 18:59 06:59 18:59 Other: # Voids 1 1 - Exam In general patient is alert and oriented x 3 in no distress HEENT head normocephalic and atraumatic Neck is supple no JVD no goiter no lymphadenopathy no carotid bruit Chest examination reveals a scattered crackles bilaterally with wheezing and prolonged expiratory phase Cardiac exam reveals regular heart sounds S1 and S2 no gallops no murmurs Abdomen is soft nontender no organomegaly with normal bowel sounds Extremity exam reveals no edema no cyanosis or clubbing Neurological examination reveals no gross focal deficits - Labs CBC & Chem 7: 05/11/24 03:39 05/11/24 03:39 Labs: Abnormal Lab Results - Last 24 Hours (Table) 05/11/24 Range/Units 03:39 Sodium 146 H (135-145) mmol/L Carbon Dioxide 39.0 H (21.6-31.8) mmol/L BUN/Creatinine Ratio 33.17 H (12.00-20.00) Ratio Calcium 8.6 L (8.7-10.3) mg/dL Total Protein 5.3 L (6.2-8.2) g/dL Albumin 3.6 L (3.8-4.9) g/dL Assessment and Plan Plan: Acute exacerbation of chronic obstructive pulmonary disease Acute on chronic hypoxic and hypercapnic respiratory failure Ongoing tobacco abuse patient was counseled in length regarding smoking cessation Possible congestive heart failure, with chest x-ray revealing cardiomegaly and pulmonary congestion, will check BNP and consult cardiology Underlying history of hypertension Underlying history of hyperlipidemia Underlying history of gastroesophageal reflux disease Underlying history of morbid obesity Possible obstructive sleep apnea At this time patient was seen and examined Home medications reviewed and reorderedhaled bronchodilators and inhaled steroid continued Cardiology and pulmonary consultation requested For DVT prophylaxis subcu Lovenox Patient was counseled regarding smoking cessation Will follow closely
[2024-05-12 09:48] LABS: Basophils # (A) 0.04 X 10*3/uL (0.00-0.10); Basophils % (A) 0.3 %; Eosinophils # (A) 0.03 X 10*3/uL (0.04-0.35); Eosinophils % (A) 0.3 %; HCT 52.2 % (37.2-46.3); HGB 15.4 g/dL (12.0-15.0); Lymphocytes % (A) 16.2 %; MCH 31.9 pg (27.0-32.0); MCHC 29.5 g/dL (32.0-37.0); MCV 108.1 FL (80.0-97.0); Mean Platelet Volume 10.4 FL (9.5-12.2); Monocytes # (A) 0.72 X 10*3/uL (0.20-1.00); Monocytes % (A) 6.1 %; NRBC Per 100 WBC 0 X 10*3/uL (0.00-0.01); Neutrophils # (A) 8.85 X 10*3/uL (1.80-7.70); Neutrophils % (A) 75.6 %; Platelet Count 134 X 10*3/uL (140-440); RBC 4.83 X 10*6/uL (4.10-5.20); RDW 12.7 % (11.5-14.5); WBC 11.72 X 10*3/uL (4.50-10.00)
--- NOTE | 2024-05-12 11:08 | P.PN ---
Subjective Progress Note Date: 05/12/24 Patient is a 69-year-old white female with past medical history significant for asthma/COPD, current everyday smoker, GERD. Her primary care provider is Dr. Jovel. She does have history of oxygen dependent COPD. Previously followed with Dr. Renate Lopez, but not currently following with any cabinet abrasive sandblaster. She is normally maintained on 2 to 3 L of nasal cannula 20/02. She is being evaluated in the emergency department. She is sitting up in the bedside recliner. Alert and oriented. She is resting comfortably on 3 L/min nasal cannula. No signs of CO2 narcosis. She feels that her asthma/COPD is active. Over the last 3 days she has had progressively worsening shortness of breath. Denies fevers. Denies URI-like symptoms. She has a congested cough which is mostly nonproductive. Denies chest pain. Denies hemoptysis. She continues to smoke approximately 1/2 pack/day. Viral screen negative for COVID, influenza, RSV. Denies sick contacts. Chest x-ray showing cardiomegaly and possible mild pulmonary vascular congestion. NT proBNP was only 581. She was initiated on Lasix 40 mg twice daily in the emergency department. Troponin less than 0.012. EKG: Normal sinus rhythm, 90 bpm, no acute ischemic changes. Denies chest pain or increased lower extremity swelling. Endorses orthopnea. CBC: WBC count 6.8, hemoglobin 15.1, hematocrit 49.4, platelets 146. CMP: Sodium 137, potassium 4 .5, chloride 94, serum bicarb 41, BUN 5, creatinine 0.45, glucose 110. Lactic 0.9. LFTs unremarkable. Hemodynamics are fairly stable. Blood pressure hypertensive. The patient is seen today May 07, 2024 in follow-up on the regular medical floor. She is awake and alert in no acute distress. Maintaining good O2 saturation in the 90s on 2 L/min per nasal cannula. She has been afebrile. Hem odynamically stable. Procalcitonin negative at 0.05. Antibiotics discontinued. Continued on DuoNebs, Pulmicort, Singulair Solu-Medrol. NicoDerm patch in place. The patient is seen today May 08, 2024 in follow-up on the regular medical floor. She is currently sitting up in a chair at the bedside. Awake and alert in no acute distress. Maintaining good O2 saturations in the 90s on 2 L/min per nasal cannula. She is continued on DuoNeb and elations, Pulmicort inhalations, Solu-Medrol. NicoDerm patch in place. Lovenox for DVT prophylaxis. White count 5.1. Hemoglobin 15.0. Platelets 114. Sodium 137. Potassium 4.5. Bicarb 37. BUN 18. Creatinine 0.6. Glucose 168. The patient is seen today May 09, 2024 in follow-up on the regular medical floor. She is currently sitting up in a chair at the bedside. Awake and alert in no acute distress. She is maintaining O2 saturations in the 90s on 3 L/min per nasal cannula.. She is afebrile. Hemodynamically stable. White count 8.4. Hemoglobin 17.4. Platelets 155. Sodium 138. Potassium 4.9. Bicarb 38. BUN 19. Creatinine 0.8. Glucose 124. She remains on DuoNeb inhalations, Pulmicort inhalations, Solu-Medrol. NicoDerm patch in place. Lovenox for DVT prophylaxis. The patient is seen today May 10, 2024 in follow-up on the regular medical floor. She is currently resting comfortably in bed. Awake and alert in no acute distress. Maintaining good O2 saturations in the 90s on 2 L/min per nasal cannula. Carotid Dopplers revealed no significant stenosis. Blood culture revealed no growth. White count 6.6. Hemoglobin 15.3. Platelets 112. Sodium 138. Potassium 4.6. Bicarb 38. BUN 21. Creatinine 0.8. Glucose 133. She remains on DuoNeb inhalations, Symbicort, Singulair, Solu-Medrol. Lovenox for D VT prophylaxis. NicoDerm patch in place. Continued on Diamox. The patient is seen today May 11, 2024 in follow-up on the regular medical floor. She is currently sitting up in a chair. Awake and alert in no acute distress. Maintaining O2 saturations in the 90s on 4 L/min per nasal cannula. She states she did have a fall last evening. This was witnessed by the nurse research assistant member and the patient legs gave out from under her while ambulating to the bathroom and she landed on her buttocks and rolled onto her back. Denies any significant injury. Head CT angiogram and CT angiography revealed no acute process. White count 7.2. Hemoglobin 15.7. Platelets 109. Sodium 146. Potassium 4.6. Bicarb 39. BUN 20. Creatinine 0.6. Glucose 93. She remains on DuoNeb inhalations, Symbicort, Singulair, prednisone. Lovenox for DVT prophylaxis. NicoDerm patch in place. Continued on Diamox. The patient is seen today May 12, 2024 in follow-up on the regular medical floor. She is currently resting in bed. Awake and alert in no acute distress. She is maintaining O2 saturation in the 90s on 4 L/min per nasal cannula. She sustained another fall yesterday. She states her legs are giving out on her. CT scan of the brain revealed no acute event. 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 Ophthalmology had been consulted. X-ray of the knees revealed no evidence of fracture. White count 11.7. Hemoglobin 15.4. Glucose 97. She is continued on Symbicort, DuoNebs, prednisone taper. NicoDerm patch in place. Lovenox for DVT prophylaxis. Objective - Vital Signs Vital signs: Vital Signs Temp 97.3 F L 05/12/24 07:14 Pulse 80 05/12/24 08:35 Resp 17 05/12/24 07:14 BP 131/76 05/12/24 07:14 Pulse Ox 96 05/12/24 07:14 FiO2 Intake & Output 05/11/24 05/12/24 05/12/24 18:59 06:59 18:59 Other: # Voids 1 1 - Exam GENERAL EXAM: Alert, pleasant 69-year-old obese female, resting in bed, on 4 L/min per nasal cannula, in no apparent distress. HEAD: Normocephalic and atraumatic EYES: Normal reaction of pupils, equal size. NOSE: Clear with pink turbinates. THROAT: No erythema or exudates. NECK: No masses, no JVD. CHEST: No chest wall deformity. LUNGS: Equal air entry with faint wheezing and rhonchi heard bilaterally. CVS: S1 and S2 normal with no audible murmur, regular rhythm. No extra heart sounds ABDOMEN: No hepatosplenomegaly, active bowel sounds, no guarding or rigidity. SPINE: No scoliosis or deformity SKIN: No rashes CENTRAL NERVOUS SYSTEM: No focal deficits, tone is normal in all 4 extremities. EXTREMITIES: There is no peripheral edema, clubbing, or cyanosis. Peripheral pulses are intact. - Labs CBC & Chem 7: 05/12/24 04:46 05/11/24 03:39 Labs: Abnormal Lab Results - Last 24 Hours (Table) 05/12/24 Range/Units 04:46 WBC 11.72 H (4.50-10.00) X 10*3/uL Hgb 15.4 H (12.0-15.0) g/dL Hct 52.2 H (37.2-46.3) % MCV 108.1 H (80.0-97.0) FL MCHC 29.5 L (32.0-37.0) g/dL Plt Count 134 L (140-440) X 10*3/uL Immature Gran # 0.18 H (0.00-0.04) X 10*3/uL Neutrophils # 8.85 H (1.80-7.70) X 10*3/uL Eosinophils # 0.03 L (0.04-0.35) X 10*3/uL Assessment and Plan Assessment: Acute COPD exacerbation, improved Acute exacerbation of diastolic congestive heart failure; chest x-ray showing cardiomegaly and possible mild pulmonary vascular congestion. NT proBNP only mildly elevated at 581. Acute on chronic hypoxemic respiratory failure, secondary to above Chronic hypoxemic respiratory failure, normally maintained on 2 to 3 L on an outpatient basis Chronic ongoing tobacco dependence, with over [id number] history Hypertension History of GERD Morbid obesity, with BMI of 38.3 kg/m Post fall without injury 05/10/2024 and 05/11/2024 Plan: The patient was seen and evaluated Labs and medications reviewed Has home oxygen/breathing treatments Complete a prednisone taper Unable to support herself fully, weak May need subacute rehab at discharge I have personally seen and examined the patient, performed the documentation and the assessment and plan as written. Number of minutes spent on the visit: 10. Dictation was produced using [employer] software. Please excuse any grammatical, word or spelling errors.
[2024-05-12 11:14] LABS: ALT 17 U/L (8-44); AST 17 U/L (13-35); Albumin 3.7 g/dL (3.8-4.9); Albumin/Globulin Ratio 1.76 Ratio (1.60-3.17); Alkaline Phosphatase 61 U/L (41-126); Blood Urea Nitrogen 18.2 mg/dL (9.0-27.0); Calcium 8.6 mg/dL (8.7-10.3); Carbon Dioxide 35.8 mmol/L (21.6-31.8); Chloride 97 mmol/L (96-109); Globulin 2.1 g/dL (1.6-3.3); Glucose 101 mg/dL (70-110); Potassium 5.3 mmol/L (3.5-5.5); Sodium 143 mmol/L (135-145); Total Bilirubin 0.3 mg/dL (0.3-1.2); Total Protein 5.8 g/dL (6.2-8.2)
[2024-05-13 08:33] LABS: Basophils # (A) 0.02 X 10*3/uL (0.00-0.10); Basophils % (A) 0.3 %; Eosinophils # (A) 0.03 X 10*3/uL (0.04-0.35); Eosinophils % (A) 0.4 %; HCT 45.2 % (37.2-46.3); HGB 13.2 g/dL (12.0-15.0); Lymphocytes # (A) 1.46 X 10*3/uL (0.90-5.00); Lymphocytes % (A) 20.4 %; MCH 32.4 pg (27.0-32.0); MCHC 29.2 g/dL (32.0-37.0); MCV 111.1 FL (80.0-97.0); Monocytes # (A) 0.43 X 10*3/uL (0.20-1.00); NRBC Per 100 WBC 0 X 10*3/uL (0.00-0.01); Neutrophils # (A) 5.14 X 10*3/uL (1.80-7.70); Neutrophils % (A) 71.9 %; Platelet Count 99 X 10*3/uL (140-440); RBC 4.07 X 10*6/uL (4.10-5.20); RDW 12.5 % (11.5-14.5); WBC 7.15 X 10*3/uL (4.50-10.00)
[2024-05-13 10:03] LABS: ALT 15 U/L (8-44); AST 13 U/L (13-35); Albumin 3.2 g/dL (3.8-4.9); Albumin/Globulin Ratio 1.88 Ratio (1.60-3.17); Alkaline Phosphatase 48 U/L (41-126); Blood Urea Nitrogen 13.7 mg/dL (9.0-27.0); Calcium 8.2 mg/dL (8.7-10.3); Carbon Dioxide 41.5 mmol/L (21.6-31.8); Chloride 101 mmol/L (96-109); Globulin 1.7 g/dL (1.6-3.3); Glucose 91 mg/dL (70-110); Potassium 4.8 mmol/L (3.5-5.5); Sodium 144 mmol/L (135-145); Total Bilirubin 0.4 mg/dL (0.3-1.2); Total Protein 4.9 g/dL (6.2-8.2)
--- NOTE | 2024-05-13 15:39 | P.PN ---
Subjective Progress Note Date: 05/13/24 Fern Nickerson, is a 69-year-old female who presented to [facility] emergency room with a chief complaint of worsening shortness of breath She was evaluated in the emergency room vital examination on presentation revealed a temperature of 98 pulse 93 respiration 26 blood pressure 134/74 pulse ox 88% on 3 L nasal cannula Laboratory data reveals a white blood count of 6.8 hemoglobin 15.1 platelet count 146 BUN 5 creatinine 0.45 Testing in the emergency room revealed EKG revealed sinus rhythm normal EKG, chest x-ray revealed cardiomegaly with pulmonary vascular congestion Patient was admitted to medical floor for further evaluation and treatment Past medical history is significant for underlying history of COPD, history of chronic hypoxic and hypercapnic respiratory failure history of asthma, history of rheumatoid arthritis, history of osteoarthritis, prolonged history of tobacco use. On review of systems patient is alert and oriented x 3 in no apparent distress she denies any fever or chills no headache or dizziness no chest pain she stated that she is having shortness of breath with any activity no palpitation no cough no sputum production no nausea or vomiting no abdominal pain no diarrhea no blood in the stools, she has frequency and urgency with urination no hematuria. On 05/07/2024 patient is alert and oriented x 3. Patient remains on azithromycin, IV Solu-Medrol and Diamox. Cardiology and pulmonary services are following. 2D echo has been ordered. Current vital signs temp 98.5, heart rate 88, respiratory rate 18, blood pressure 143/75 with a pulse ox of 90% on 4 L On 05/08/2024 patient was seen and examined on the medical floor she is alert and oriented x 3 in no apparent distress, there is no fever or chills no headache or dizziness no chest pain, she is still having severe shortness of breath with any activity, she is still complaining of cough, no palpitation no nausea or vomiting no abdominal pain no diarrhea, she is still complaining of frequency with urination. CO2 has improved from 49-36.9 patient is maintained on oral Diamox, will continue with IV Solu-Medrol and inhaled bronchodilators, will continue to follow closely. On 05/09/2024 patient was seen and examined on the medical floor she is alert and oriented x 3 in no apparent distress she is still complaining of shortness of breath with any activity she is also complaining of dizziness otherwise she denies any complaints at this time there is no fever or chills no headache no chest pain no nausea or vomiting no abdominal pain no diarrhea no urinary symptoms. On 05/10/2024 patient is alert and oriented x 3. Patient has been transitioned to p.o. prednisone. Head CT completed showing nonspecific dilated bilateral superior ophthalmic veins. At this time will consult neurology services for further recommendations. Carotid Doppler completed showing no significant juliano nosis. Current vital signs temp 98.1, heart rate 78, respiratory rate 17, blood pressure 157/81 with a pulse ox of 94% on 3 L. Patient denies chest pain or shortness of breath. Patient denies nausea vomiting or diarrhea. Patient denies any urinary burning frequency On 05/11/2024 patient was seen and examined on the medical floor she is alert and oriented x 3 in no apparent distress she had a fall last night with bilateral knee injury, currently she is complaining of bilateral knee pain she denies any other complaints there is no fever or chills no headache or dizziness no chest pain, she stated that her shortness of breath and cough has improved there is no palpitation no nausea or vomiting no fever no diarrhea and no urinary symptoms. At this time will check bilateral knee x-ray, consultation for physical therapy and Occupational Therapy were initiated. Input from neurology reviewed awaiting results on CT angiogram of the brain and MRI of the brain. Input from pulmonary reviewed, will continue to follow closely. On 05/12/2024 patient is alert and oriented x 3. Optometry consulted recommendation of developing cataract and long standing history of asthma and oral steroids follow-up outpatient. Per nursing staff patient had episode of weakness requiring to be lowered to the floor. At this time discussed with patient that she may need rehab upon discharge will consult PT OT and social work services. Patient reports improvement with shortness of breath. Patient denies nausea vomiting or diarrhea. Patient denies any urinary burning or frequency. On 05/13/2024 patient was seen and examined on the medical floor she is alert and oriented x 3 in no apparent distress she is complaining of severe weakness and had to be lowered to the floor this morning she felt that she was going to fall, otherwise she denies any complaints her cough and shortness of breath has been improving there is no fever or chills no headache or dizziness no chest pain no palpitation no nausea or vomiting no abdominal pain no diarrhea no blood in the stools no burning with urination no frequency or urgency and no hematuria. At this time possibility of medication causing her severe weakness was discussed again with the patient she is very reluctant to decrease her medication as she stated that she has been on this regimen for a prolonged time however I told her that I would try to decrease gradually the dose on the hydrocodone, gabapentin, and tizanidine. Will assess progress closely. Input from pulmonary, ophthalmology, and neurology reviewed MRI of the brain reviewed bilateral knee x-rays reviewed. Objective - Vital Signs Vital signs: Vital Signs Temp 97.7 F 05/13/24 13:36 Pulse 77 05/13/24 15:20 Resp 18 05/13/24 15:20 BP 113/60 05/13/24 13:36 Pulse Ox 90 L 05/13/24 13:36 FiO2 Intake & Output 05/12/24 05/13/24 05/13/24 18:59 06:59 18:59 Weight 103 kg Other: Voiding Method Bedpan Bedside Commode Bedpan # Voids 1 2 1 # Bowel Movements 1 - Exam In general patient is alert and oriented x 3 in no distress HEENT head normocephalic and atraumatic Neck is supple no JVD no goiter no lymphadenopathy no carotid bruit Chest examination reveals a scattered crackles bilaterally with wheezing and prolonged expiratory phase Cardiac exam reveals regular heart sounds S1 and S2 no gallops no murmurs Abdomen is soft nontender no organomegaly with normal bowel sounds Extremity exam reveals no edema no cyanosis or clubbing Neurological examination reveals no gross focal deficits - Labs CBC & Chem 7: 05/13/24 03:40 05/13/24 03:40 Labs: Abnormal Lab Results - Last 24 Hours (Table) 05/13/24 05/13/24 Range/Units 03:40 03:40 RBC 4.07 L (4.10-5.20) X 10*6/uL MCV 111.1 H (80.0-97.0) FL MCH 32.4 H (27.0-32.0) pg MCHC 29.2 L (32.0-37.0) g/dL Plt Count 99 L (140-440) X 10*3/uL Immature Gran # 0.07 H (0.00-0.04) X 10*3/uL Eosinophils # 0.03 L (0.04-0.35) X 10*3/uL Carbon Dioxide 41.5 A* (21.6-31.8) mmol/L Anion Gap 1.50 L (4.00-12.00) mmol/L Creatinine 0.5 L (0.6-1.5) mg/dL BUN/Creatinine Ratio 27.40 H (12.00-20.00) Ratio Calcium 8.2 L (8.7-10.3) mg/dL Total Protein 4.9 L (6.2-8.2) g/dL Albumin 3.2 L (3.8-4.9) g/dL Assessment and Plan Plan: Acute exacerbation of chronic obstructive pulmonary disease Acute on chronic hypoxic and hypercapnic respiratory failure Ongoing tobacco abuse patient was counseled in length regarding smoking cessation Possible congestive heart failure, with chest x-ray revealing cardiomegaly and pulmonary congestion, will check BNP and consult cardiology Underlying history of hypertension Underlying history of hyperlipidemia Underlying history of gastroesophageal reflux disease Underlying history of morbid obesity Possible obstructive sleep apnea At this time patient was seen and examined Home medications reviewed and reorderedhaled bronchodilators and inhaled steroid continued Cardiology and pulmonary consultation requested For DVT prophylaxis subcu Lovenox Patient was counseled regarding smoking cessation Will follow closely
[2024-05-13] MEDS: GABAPENTIN 100 MG CAP PO SCH (16:12)
--- NOTE | 2024-05-13 17:56 | P.PN ---
Subjective Progress Note Date: 05/13/24 Patient is a 69-year-old white female with past medical history significant for asthma/COPD, current everyday smoker, GERD. Her primary care provider is Dr. Jovel. She does have history of oxygen dependent COPD. Previously followed with Dr. Renate Lopez, but not currently following with any rn examiner. She is normally maintained on 2 to 3 L of nasal cannula 20/02. She is being evaluated in the emergency department. She is sitting up in the bedside recliner. Alert and oriented. She is resting comfortably on 3 L/min nasal cannula. No signs of CO2 narcosis. She feels that her asthma/COPD is active. Over the last 3 days she has had progressively worsening shortness of breath. Denies fevers. Denies URI-like symptoms. She has a congested cough which is mostly nonproductive. Denies chest pain. Denies hemoptysis. She continues to smoke approximately 1/2 pack/day. Viral screen negative for COVID, influenza, RSV. Denies sick contacts. Chest x-ray showing cardiomegaly and possible mild pulmonary vascular congestion. NT proBNP was only 581. She was initiated on Lasix 40 mg twice daily in the emergency department. Troponin less than 0.012. EKG: Normal sinus rhythm, 90 bpm, no acute ischemic changes. Denies chest pain or increased lower extremity swelling. Endorses orthopnea. CBC: WBC count 6.8, hemoglobin 15.1, hematocrit 49.4, platelets 146. CMP: Sodium 137, potassium 4.5, chloride 94, serum bicarb 41, BUN 5, creatinine 0.45, glucose 110. Lactic 0.9. LFTs unremarkable. Hemodynamics are fairly stable. Blood pressure hypertensive. The patient is seen today May 07, 2024 in follow-up on the regular medical floor. She is awake and alert in no acute distress. Maintaining good O2 saturation in the 90s on 2 L/min per nasal cannula. She has been afebrile. He modynamically stable. Procalcitonin negative at 0.05. Antibiotics discontinued. Continued on DuoNebs, Pulmicort, Singulair Solu-Medrol. NicoDerm patch in place. The patient is seen today May 08, 2024 in follow-up on the regular medical floor. She is currently sitting up in a chair at the bedside. Awake and alert in no acute distress. Maintaining good O2 saturations in the 90s on 2 L/min per nasal cannula. She is continued on DuoNeb and elations, Pulmicort inhalations, Solu-Medrol. NicoDerm patch in place. Lovenox for DVT prophylaxis. White count 5.1. Hemoglobin 15.0. Platelets 114. Sodium 137. Potassium 4.5. Bicarb 37. BUN 18. Creatinine 0.6. Glucose 168. The patient is seen today May 09, 2024 in follow-up on the regular medical floor. She is currently sitting up in a chair at the bedside. Awake and alert in no acute distress. She is maintaining O2 saturations in the 90s on 3 L/min per nasal cannula.. She is afebrile. Hemodynamically stable. White count 8.4. Hemoglobin 17.4. Platelets 155. Sodium 138. Potassium 4.9. Bicarb 38. BUN 19. Creatinine 0.8. Glucose 124. She remains on DuoNeb inhalations, Pulmicort inhalations, Solu-Medrol. NicoDerm patch in place. Lovenox for DVT prophylaxis. The patient is seen today May 10, 2024 in follow-up on the regular medical floor. She is currently resting comfortably in bed. Awake and alert in no acute distress. Maintaining good O2 saturations in the 90s on 2 L/min per nasal cannula. Carotid Dopplers revealed no significant stenosis. Blood culture revealed no growth. White count 6.6. Hemoglobin 15.3. Platelets 112. Sodium 138. Potassium 4.6. Bicarb 38. BUN 21. Creatinine 0.8. Glucose 133. She remains on DuoNeb inhalations, Symbicort, Singulair, Solu-Medrol. Lovenox for DVT prophylaxis. NicoDerm patch in place. Continued on Diamox. The patient is seen today May 11, 2024 in follow-up on the regular medical floor. She is currently sitting up in a chair. Awake and alert in no acute distress. Maintaining O2 saturations in the 90s on 4 L/min per nasal cannula. She states she did have a fall last evening. This was witnessed by the nurse medical claims assistant and the patient legs gave out from under her while ambulating to the bathroom and she landed on her buttocks and rolled onto her back. Denies any significant injury. Head CT angiogram and CT angiography revealed no acute process. White count 7.2. Hemoglobin 15.7. Platelets 109. Sodium 146. Potassium 4.6. Bicarb 39. BUN 20. Creatinine 0.6. Glucose 93. She remains on DuoNeb inhalations, Symbicort, Singulair, prednisone. Lovenox for DVT prophylaxis. NicoDerm patch in place. Continued on Diamox. The patient is seen today May 12, 2024 in follow-up on the regular medical floor. She is currently resting in bed. Awake and alert in no acute distress. She is maintaining O2 saturation in the 90s on 4 L/min per nasal cannula. She sustained another fall yesterday. She states her legs are giving out on her. CT scan of the brain revealed no acute event. 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 Ophthalmology had been consulted. X-ray of the knees revealed no evidence of fracture. White count 11.7. Hemoglobin 15.4. Glucose 97. She is continued on Symbicort, DuoNebs, prednisone taper. NicoDerm patch in place. Lovenox for DVT prophylaxis. 05/13/2024, patient is being seen for a follow-up. Doing well. No new complaints as the patient completes a prednisone burst taper and she is on DuoNebs about treatments [id number]. She is currently out of 30 mg of prednisone as part of a burst taper. She is on Lovenox for DVT prophylaxis. Nodule worsening shortness of breath. She is weak and she would like to have some more rehabilitation. White cell count is at 7 with a hemoglobin 13 and a platelet count of 99. BUN is 13 with a creatinine of 1.5. Sodium levels at 144. No new complaints otherwise for now. No significant respiratory distress. Objective - Vital Signs Vital signs: Vital Signs Temp 98.5 F 05/13/24 06:47 Pulse 91 05/13/24 09:25 Resp 18 05/13/24 09:25 BP 128/60 05/13/24 06:47 Pulse Ox 92 L 05/13/24 08:41 FiO2 Intake & Output 05/12/24 05/13/24 05/13/24 18:59 06:59 18:59 Weight 103 kg Other: Voiding Method Bedpan Bedside Commode Bedpan # Voids 1 2 1 # Bowel Movements 1 - Exam GENERAL EXAM: Alert, pleasant 69-year-old obese female, resting in bed, on 3 L/min per nasal cannula, in no apparent distress. HEAD: Normocephalic and atraumatic EYES: Normal reaction of pupils, equal size. NOSE: Clear with pink turbinates. THROAT: No erythema or exudates. NECK: No masses, no JVD. CHEST: No chest wall deformity. LUNGS: Equal air entry with faint wheezing and rhonchi heard bilaterally. CVS: S1 and S2 normal with no audible murmur, regular rhythm. No extra heart sounds ABDOMEN: No hepatosplenomegaly, active bowel sounds, no guarding or rigidity. SPINE: No scoliosis or deformity SKIN: No rashes CENTRAL NERVOUS SYSTEM: No focal deficits, tone is normal in all 4 extremities. EXTREMITIES: There is no peripheral edema, clubbing, or cyanosis. Peripheral pulses are intact. - Labs CBC & Chem 7: 05/13/24 03:40 05/13/24 03:40 Labs: Abnormal Lab Results - Last 24 Hours (Table) 05/13/24 05/13/24 Range/Units 03:40 03:40 RBC 4.07 L (4.10-5.20) X 10*6/uL MCV 111.1 H (80.0-97.0) FL MCH 32.4 H (27.0-32.0) pg MCHC 29.2 L (32.0-37.0) g/dL Plt Count 99 L (140-440) X 10*3/uL Immature Gran # 0.07 H (0.00-0.04) X 10*3/uL Eosinophils # 0.03 L (0.04-0.35) X 10*3/uL Carbon Dioxide 41.5 A* (21.6-31.8) mmol/L Anion Gap 1.50 L (4.00-12.00) mmol/L Creatinine 0.5 L (0.6-1.5) mg/dL BUN/Creatinine Ratio 27.40 H (12.00-20.00) Ratio Calcium 8.2 L (8.7-10.3) mg/dL Total Protein 4.9 L (6.2-8.2) g/dL Albumin 3.2 L (3.8-4.9) g/dL Assessment and Plan Plan: Acute COPD exacerbation, improved, still on Duoneb and a prednisone taper on 30 mg of prednisone Acute exacerbation of diastolic congestive heart failure; chest x-ray showing c ardiomegaly and possible mild pulmonary vascular congestion. NT proBNP only mildly elevated at 581. Acute on chronic hypoxemic respiratory failure, secondary to above Chronic hypoxemic respiratory failure, normally maintained on 2 to 3 L on an outpatient basis Chronic ongoing tobacco dependence, with over [id number] history Hypertension History of GERD Morbid obesity, with BMI of 38.3 kg/m Post fall without injury 05/10/2024 and 05/11/2024 Plan: Has home oxygen/breathing treatments Complete a prednisone taper Unable to support herself fully, weak May need subacute rehab at discharge
[2024-05-13] MEDS: tiZANidine 4 MG TAB PO SCH (21:07)
[2024-05-13] MEDS: HYDROcodone/APAP 7.5-325MG 1 EACH TAB PO PRN (21:16)
--- NOTE | 2024-05-14 09:10 | P.PN ---
Subjective Progress Note Date: 05/14/24 Fern Nickerson, is a 69-year-old female who presented to [facility] emergency room with a chief complaint of worsening shortness of breath She was evaluated in the emergency room vital examination on presentation revealed a temperature of 98 pulse 93 respiration 26 blood pressure 134/74 pulse ox 88% on 3 L nasal cannula Laboratory data reveals a white blood count of 6.8 hemoglobin 15.1 platelet count 146 BUN 5 creatinine 0.45 Testing in the emergency room revealed EKG revealed sinus rhythm normal EKG, chest x-ray revealed cardiomegaly with pulmonary vascular congestion Patient was admitted to medical floor for further evaluation and treatment Past medical history is significant for underlying history of COPD, history of chronic hypoxic and hypercapnic respiratory failure history of asthma, history of rheumatoid arthritis, history of osteoarthritis, prolonged history of tobacco use. On review of systems patient is alert and oriented x 3 in no apparent distress she denies any fever or chills no headache or dizziness no chest pain she stated that she is having shortness of breath with any activity no palpitation no cough no sputum production no nausea or vomiting no abdominal pain no diarrhea no blood in the stools, she has frequency and urgency with urination no hematuria. On 05/07/2024 patient is alert and oriented x 3. Patient remains on azithromycin, IV Solu-Medrol and Diamox. Cardiology and pulmonary services are following. 2D echo has been ordered. Current vital signs temp 98.5, heart rate 88, respiratory rate 18, blood pressure 143/75 with a pulse ox of 90% on 4 L On 05/08/2024 patient was seen and examined on the medical floor she is alert and oriented x 3 in no apparent distress, there is no fever or chills no headache or dizziness no chest pain, she is still having severe shortness of breath with any activity, she is still complaining of cough, no palpitation no nausea or vomiting no abdominal pain no diarrhea, she is still complaining of frequency with urination. CO2 has improved from 49-36.9 patient is maintained on oral Diamox, will continue with IV Solu-Medrol and inhaled bronchodilators, will continue to follow closely. On 05/09/2024 patient was seen and examined on the medical floor she is alert and oriented x 3 in no apparent distress she is still complaining of shortness of breath with any activity she is also complaining of dizziness otherwise she denies any complaints at this time there is no fever or chills no headache no chest pain no nausea or vomiting no abdominal pain no diarrhea no urinary symptoms. On 05/10/2024 patient is alert and oriented x 3. Patient has been transitioned to p.o. prednisone. Head CT completed showing nonspecific dilated bilateral superior ophthalmic veins. At this time will consult neurology services for further recommendations. Carotid Doppler completed showing no significant juliano nosis. Current vital signs temp 98.1, heart rate 78, respiratory rate 17, blood pressure 157/81 with a pulse ox of 94% on 3 L. Patient denies chest pain or shortness of breath. Patient denies nausea vomiting or diarrhea. Patient denies any urinary burning frequency On 05/11/2024 patient was seen and examined on the medical floor she is alert and oriented x 3 in no apparent distress she had a fall last night with bilateral knee injury, currently she is complaining of bilateral knee pain she denies any other complaints there is no fever or chills no headache or dizziness no chest pain, she stated that her shortness of breath and cough has improved there is no palpitation no nausea or vomiting no fever no diarrhea and no urinary symptoms. At this time will check bilateral knee x-ray, consultation for physical therapy and Occupational Therapy were initiated. Input from neurology reviewed awaiting results on CT angiogram of the brain and MRI of the brain. Input from pulmonary reviewed, will continue to follow closely. On 05/12/2024 patient is alert and oriented x 3. Optometry consulted recommendation of developing cataract and long standing history of asthma and oral steroids follow-up outpatient. Per nursing staff patient had episode of weakness requiring to be lowered to the floor. At this time discussed with patient that she may need rehab upon discharge will consult PT OT and social work services. Patient reports improvement with shortness of breath. Patient denies nausea vomiting or diarrhea. Patient denies any urinary burning or frequency. On 05/13/2024 patient was seen and examined on the medical floor she is alert and oriented x 3 in no apparent distress she is complaining of severe weakness and had to be lowered to the floor this morning she felt that she was going to fall, otherwise she denies any complaints her cough and shortness of breath has been improving there is no fever or chills no headache or dizziness no chest pain no palpitation no nausea or vomiting no abdominal pain no diarrhea no blood in the stools no burning with urination no frequency or urgency and no hematuria. At this time possibility of medication causing her severe weakness was discussed again with the patient she is very reluctant to decrease her medication as she stated that she has been on this regimen for a prolonged time however I told her that I would try to decrease gradually the dose on the hydrocodone, gabapentin, and tizanidine. Will assess progress closely. Input from pulmonary, ophthalmology, and neurology reviewed MRI of the brain reviewed bilateral knee x-rays reviewed. On 05/14/2024 patient is alert and oriented x 3. Patient refusing rehab insisting that she will go home with help. MRI of the cervical spine has been ordered per neurology. Current vital signs temp 97.6, heart rate 71, respiratory rate 13, blood pressure 133/69 with pulse ox of 96% on 3 L patient denies chest pain or shortness of breath patient denies nausea vomiting or diarrhea. Patient denies any urinary burning or frequency Objective - Vital Signs Vital signs: Vital Signs Temp 97.6 F 05/14/24 01:19 Pulse 79 05/14/24 08:35 Resp 13 05/14/24 01:19 BP 133/69 05/14/24 01:19 Pulse Ox 96 05/14/24 08:24 FiO2 Intake & Output 05/13/24 05/14/24 05/14/24 18:59 06:59 18:59 Weight 102.5 kg Other: Voiding Method Bedside Commode Bedside Commode Bedpan Bedpan # Voids 1 5 # Bowel Movements 1 - Exam In general patient is alert and oriented x 3 in no distress HEENT head normocephalic and atraumatic Neck is supple no JVD no goiter no lymphadenopathy no carotid bruit Chest examination reveals a scattered crackles bilaterally with wheezing and prolonged expiratory phase Cardiac exam reveals regular heart sounds S1 and S2 no gallops no murmurs Abdomen is soft nontender no organomegaly with normal bowel sounds Extremity exam reveals no edema no cyanosis or clubbing Neurological examination reveals no gross focal deficits - Labs CBC & Chem 7: 05/13/24 03:40 05/13/24 03:40 Labs: Abnormal Lab Results - Last 24 Hours (Table) 05/13/24 Range/Units 03:40 Carbon Dioxide 41.5 A* (21.6-31.8) mmol/L Anion Gap 1.50 L (4.00-12.00) mmol/L Creatinine 0.5 L (0.6-1.5) mg/dL BUN/Creatinine Ratio 27.40 H (12.00-20.00) Ratio Calcium 8.2 L (8.7-10.3) mg/dL Total Protein 4.9 L (6.2-8.2) g/dL Albumin 3.2 L (3.8-4.9) g/dL Assessment and Plan Plan: Acute exacerbation of chronic obstructive pulmonary disease Acute on chronic hypoxic and hypercapnic respiratory failure Ongoing tobacco abuse patient was counseled in length regarding smoking cessation Possible congestive heart failure, with chest x-ray revealing cardiomegaly and pulmonary congestion, will check BNP and consult cardiology Underlying history of hypertension Underlying history of hyperlipidemia Underlying history of gastroesophageal reflux disease Underlying history of morbid obesity Possible obstructive sleep apnea At this time patient was seen and examined Home medications reviewed and reorderedhaled bronchodilators and inhaled steroid continued Cardiology and pulmonary consultation requested For DVT prophylaxis subcu Lovenox Patient was counseled regarding smoking cessation Will follow closely
[2024-05-14 09:28] LABS: Basophils # (A) 0.01 X 10*3/uL (0.00-0.10); Basophils % (A) 0.2 %; Eosinophils # (A) 0.03 X 10*3/uL (0.04-0.35); Eosinophils % (A) 0.5 %; HCT 45.3 % (37.2-46.3); HGB 13.7 g/dL (12.0-15.0); Lymphocytes # (A) 1.31 X 10*3/uL (0.90-5.00); Lymphocytes % (A) 21.1 %; MCH 32.2 pg (27.0-32.0); MCHC 30.2 g/dL (32.0-37.0); MCV 106.6 FL (80.0-97.0); Mean Platelet Volume 11.4 FL (9.5-12.2); Monocytes # (A) 0.38 X 10*3/uL (0.20-1.00); Monocytes % (A) 6.1 %; NRBC Per 100 WBC 0 X 10*3/uL (0.00-0.01); Neutrophils # (A) 4.41 X 10*3/uL (1.80-7.70); Platelet Count 84 X 10*3/uL (140-440); RBC 4.25 X 10*6/uL (4.10-5.20); RDW 12.5 % (11.5-14.5); WBC 6.21 X 10*3/uL (4.50-10.00)
[2024-05-14 09:29] LABS: ALT 16 U/L (8-44); AST 16 U/L (13-35); Albumin 3.3 g/dL (3.8-4.9); Albumin/Globulin Ratio 1.83 Ratio (1.60-3.17); Alkaline Phosphatase 58 U/L (41-126); BUN/Creat Ratio 22.83 Ratio (12.00-20.00); Blood Urea Nitrogen 13.7 mg/dL (9.0-27.0); Calcium 8.4 mg/dL (8.7-10.3); Carbon Dioxide 35.5 mmol/L (21.6-31.8); Chloride 102 mmol/L (96-109); Globulin 1.8 g/dL (1.6-3.3); Glucose 102 mg/dL (70-110); Potassium 4.3 mmol/L (3.5-5.5); Sodium 143 mmol/L (135-145); Total Bilirubin 0.4 mg/dL (0.3-1.2); Total Protein 5.1 g/dL (6.2-8.2)
--- NOTE | 2024-05-14 10:22 | MR ---
EXAMINATION TYPE: MR cervical spine wo con DATE OF EXAM: 05/14/2024 10:16 AM CLINICAL INDICATION: Female, 69 years old with history of arm weakness; PHH, Arm weakness. COMPARISON: 01/23/2017. TECHNIQUE: Multi planar, multi sequence imaging was performed utilizing: T1-weighted, T2-weighted, an d turbo inversion recovery imaging of the cervical spine. IV Contrast: cc (none if empty) FINDINGS: Alignment: The cervical vertebral bodies have preserved heights. Alignment is within normal limits gi radha patient positioning. Bones: Multilevel disc space narrowing and osteophyte formation with facet and uncovertebral joint ar thropathy. Cord: The spinal cord is unremarkable with regards to their signal intensity and morphology. Discs: Intervertebral disc signal is maintained. C2-C3: No significant disc pathology. The spinal canal is patent. No neural foraminal stenosis. C3-C4: No significant disc pathology. The spinal canal is patent. No neural foraminal stenosis. C4-C5: No significant disc pathology. The spinal canal is patent. Bilateral facet and uncovertebral joint arthropathy are present with moderate bilateral neural foraminal stenosis. C5-C6: No significant disc pathology. The spinal canal is patent. Bilateral facet and uncovertebral joint arthropathy are present with moderate bilateral neural foraminal stenosis. C6-C7: A disc osteophyte complex is present with mild spinal canal stenosis. Bilateral facet and unc overtebral joint arthropathy are present with moderate bilateral neural foraminal stenosis, left grea ter than right. C7-T1: No significant disc pathology. The spinal canal is patent. No neural foraminal stenosis. Other: Heterogenous thyroid gland bilaterally compatible with multinodular goiter as seen on CT. IMPRESSION: 1. No evidence for disc herniation or significant spinal canal stenosis. 2. Mild to moderate disc degeneration with associated osteoarthritic changes worse at C4-C5, C5-C6 an d C6-C7 with moderate bilateral left greater than right neural foraminal stenosis. [facility], , 05/14/2024 10:19 AM
--- NOTE | 2024-05-14 15:04 | P.PN ---
Subjective Progress Note Date: 05/14/24 Patient is a 69-year-old white female with past medical history significant for asthma/COPD, current everyday smoker, GERD. Her primary care provider is Dr. Jovel. She does have history of oxygen dependent COPD. Previously followed with Dr. Renate Lopez, but not currently following with any concreting supervisor. She is normally maintained on 2 to 3 L of nasal cannula 20/02. She is being evaluated in the emergency department. She is sitting up in the bedside recliner. Alert and oriented. She is resting comfortably on 3 L/min nasal cannula. No signs of CO2 narcosis. She feels that her asthma/COPD is active. Over the last 3 days she has had progressively worsening shortness of breath. Denies fevers. Denies URI-like symptoms. She has a congested cough which is mostly nonproductive. Denies chest pain. Denies hemoptysis. She continues to smoke approximately 1/2 pack/day. Viral screen negative for COVID, influenza, RSV. Denies sick contacts. Chest x-ray showing cardiomegaly and possible mild pulmonary vascular congestion. NT proBNP was only 581. She was initiated on Lasix 40 mg twice daily in the emergency department. Troponin less than 0.012. EKG: Normal sinus rhythm, 90 bpm, no acute ischemic changes. Denies chest pain or increased lower extremity swelling. Endorses orthopnea. CBC: WBC count 6.8, hemoglobin 15.1, hematocrit 49.4, platelets 146. CMP: Sodium 137, potassium 4.5, chloride 94, serum bicarb 41, BUN 5, creatinine 0.45, glucose 110. Lactic 0.9. LFTs unremarkable. Hemodynamics are fairly stable. Blood pressure hypertensive. The patient is seen today May 07, 2024 in follow-up on the regular medical floor. She is awake and alert in no acute distress. Maintaining good O2 saturation in the 90s on 2 L/min per nasal cannula. She has been afebrile. He modynamically stable. Procalcitonin negative at 0.05. Antibiotics discontinued. Continued on DuoNebs, Pulmicort, Singulair Solu-Medrol. NicoDerm patch in place. The patient is seen today May 08, 2024 in follow-up on the regular medical floor. She is currently sitting up in a chair at the bedside. Awake and alert in no acute distress. Maintaining good O2 saturations in the 90s on 2 L/min per nasal cannula. She is continued on DuoNeb and elations, Pulmicort inhalations, Solu-Medrol. NicoDerm patch in place. Lovenox for DVT prophylaxis. White count 5.1. Hemoglobin 15.0. Platelets 114. Sodium 137. Potassium 4.5. Bicarb 37. BUN 18. Creatinine 0.6. Glucose 168. The patient is seen today May 09, 2024 in follow-up on the regular medical floor. She is currently sitting up in a chair at the bedside. Awake and alert in no acute distress. She is maintaining O2 saturations in the 90s on 3 L/min per nasal cannula.. She is afebrile. Hemodynamically stable. White count 8.4. Hemoglobin 17.4. Platelets 155. Sodium 138. Potassium 4.9. Bicarb 38. BUN 19. Creatinine 0.8. Glucose 124. She remains on DuoNeb inhalations, Pulmicort inhalations, Solu-Medrol. NicoDerm patch in place. Lovenox for DVT prophylaxis. The patient is seen today May 10, 2024 in follow-up on the regular medical floor. She is currently resting comfortably in bed. Awake and alert in no acute distress. Maintaining good O2 saturations in the 90s on 2 L/min per nasal cannula. Carotid Dopplers revealed no significant stenosis. Blood culture revealed no growth. White count 6.6. Hemoglobin 15.3. Platelets 112. Sodium 138. Potassium 4.6. Bicarb 38. BUN 21. Creatinine 0.8. Glucose 133. She remains on DuoNeb inhalations, Symbicort, Singulair, Solu-Medrol. Lovenox for DVT prophylaxis. NicoDerm patch in place. Continued on Diamox. The patient is seen today May 11, 2024 in follow-up on the regular medical floor. She is currently sitting up in a chair. Awake and alert in no acute distress. Maintaining O2 saturations in the 90s on 4 L/min per nasal cannula. She states she did have a fall last evening. This was witnessed by the nurse clothing sales assistant and the patient legs gave out from under her while ambulating to the bathroom and she landed on her buttocks and rolled onto her back. Denies any significant injury. Head CT angiogram and CT angiography revealed no acute process. White count 7.2. Hemoglobin 15.7. Platelets 109. Sodium 146. Potassium 4.6. Bicarb 39. BUN 20. Creatinine 0.6. Glucose 93. She remains on DuoNeb inhalations, Symbicort, Singulair, prednisone. Lovenox for DVT prophylaxis. NicoDerm patch in place. Continued on Diamox. The patient is seen today May 12, 2024 in follow-up on the regular medical floor. She is currently resting in bed. Awake and alert in no acute distress. She is maintaining O2 saturation in the 90s on 4 L/min per nasal cannula. She sustained another fall yesterday. She states her legs are giving out on her. CT scan of the brain revealed no acute event. 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 Ophthalmology had been consulted. X-ray of the knees revealed no evidence of fracture. White count 11.7. Hemoglobin 15.4. Glucose 97. She is continued on Symbicort, DuoNebs, prednisone taper. NicoDerm patch in place. Lovenox for DVT prophylaxis. 05/13/2024, patient is being seen for a follow-up. Doing well. No new complaints as the patient completes a prednisone burst taper and she is on DuoNebs about treatments [id number]. She is currently out of 30 mg of prednisone as part of a burst taper. She is on Lovenox for DVT prophylaxis. Nodule worsening shortness of breath. She is weak and she would like to have some more rehabilitation. White cell count is at 7 with a hemoglobin 13 and a platelet count of 99. BUN is 13 with a creatinine of 1.5. Sodium levels at 144. No new complaints otherwise for now. No significant respiratory distress. On 05/14/2024, the patient is being seen for a follow-up. The patient has a component of an acute CF exacerbation and CHF exacerbation with a mildly elevated proBNP level. She is a chronic smoker. She remains on O2 and she is currently on 4 L of O2 nasal cannula. She remains on DuoNeb nebulized treatments [id number] and she is also on prednisone burst taper starting with 30 mg p.o. daily. She is feeling better. She has improved strength compared to yesterday and she was able to get up with assistance and is current and she is currently sitting up in a chair. The white cell count is at 6.2 with a heme of 13.7 and a platelet count of 84. BUN is at 13 with a creatinine of 0.6 and a sodium levels at 143. She remains on Lovenox 40 mg subcu for DVT prophylaxis. A drop in the platelet count was noted. She remains on Diamox to 50 mg p.o. twice a day. Rest of the medications are essentially unchanged. She is on [place] for pain control. Awake and alert and communicating. No signs of any CO2 narcosis. Denies having angina or palpitations. She feels that she can get stronger and ultimately she plans to go home. Objective - Vital Signs Vital signs: Vital Signs Temp 98.2 F 05/14/24 08:00 Pulse 79 05/14/24 08:35 Resp 16 05/14/24 08:10 BP 145/74 05/14/24 08:00 Pulse Ox 96 05/14/24 08:24 FiO2 Intake & Output 05/13/24 05/14/24 05/14/24 18:59 06:59 18:59 Intake Total 240 Balance 240 Weight 102.5 kg Intake: Oral 240 Other: Voiding Method Bedside Commode Bedside Commode Toilet Bedpan Bedpan Bedside Commode Bedpan # Voids 1 5 2 # Bowel Movements 1 1 - Exam GENERAL EXAM: Alert, pleasant 69-year-old obese female, resting in bed, on 3 L/min per nasal cannula, in no apparent distress. HEAD: Normocephalic and atraumatic EYES: Normal reaction of pupils, equal size. NOSE: Clear with pink turbinates. THROAT: No erythema or exudates. NECK: No masses, no JVD. CHEST: No chest wall deformity. LUNGS: Equal air entry with faint wheezing and rhonchi heard bilaterally. CVS: S1 and S2 normal with no audible murmur, regular rhythm. No extra heart sounds ABDOMEN: No hepatosplenomegaly, active bowel sounds, no guarding or rigidity. SPINE: No scoliosis or deformity SKIN: No rashes CENTRAL NERVOUS SYSTEM: No focal deficits, tone is normal in all 4 extremities. EXTREMITIES: There is no peripheral edema, clubbing, or cyanosis. Peripheral pulses are intact. - Labs CBC & Chem 7: 05/14/24 02:47 05/14/24 02:47 Labs: Abnormal Lab Results - Last 24 Hours (Table) 05/14/24 05/14/24 Range/Units 02:47 02:47 MCV 106.6 H (80.0-97.0) FL MCH 32.2 H (27.0-32.0) pg MCHC 30.2 L (32.0-37.0) g/dL Plt Count 84 L (140-440) X 10*3/uL Immature Gran # 0.07 H (0.00-0.04) X 10*3/uL Eosinophils # 0.03 L (0.04-0.35) X 10*3/uL Carbon Dioxide 35.5 H (21.6-31.8) mmol/L BUN/Creatinine Ratio 22.83 H (12.00-20.00) Ratio Calcium 8.4 L (8.7-10.3) mg/dL Total Protein 5.1 L (6.2-8.2) g/dL Albumin 3.3 L (3.8-4.9) g/dL Assessment and Plan Plan: Acute COPD exacerbation, improved, still on Duoneb and a prednisone taper on 30 mg of prednisone Acute exacerbation of diastolic congestive heart failure; chest x-ray showing cardiomegaly and possible mild pulmonary vascular congestion. NT proBNP only mildly elevated at 581. Acute on chronic hypoxemic respiratory failure, secondary to above Chronic hypoxemic respiratory failure, normally maintained on 2 to 3 L on an outpatient basis Chronic ongoing tobacco dependence, with over [id number] history Hypertension History of GERD Morbid obesity, with BMI of 38.3 kg/m Post fall without injury 05/10/2024 and 05/11/2024 Plan: Clinically improved compared to yesterday and energy level is also improved. Patient is interested in going home rather than to [facility]. Will monitor progress and make final decision over the next 24 hours. Has home oxygen/breathing treatments Complete a prednisone taper Continue Lovenox and monitor the platelet count Will continue to follow.
[2024-05-14] MEDS: tiZANidine 4 MG TAB PO SCH (20:59)
[2024-05-14] MEDS: ACETAMINOPHEN TAB 325 MG TAB PO PRN (21:05)
[2024-05-15 08:40] LABS: HCT 42.6 % (37.2-46.3); MCH 31.8 pg (27.0-32.0); MCHC 30.5 g/dL (32.0-37.0); MCV 104.2 FL (80.0-97.0); Mean Platelet Volume 11.2 FL (9.5-12.2); NRBC Per 100 WBC 0 X 10*3/uL (0.00-0.01); Platelet Count 92 X 10*3/uL (140-440); RBC 4.09 X 10*6/uL (4.10-5.20); RDW 12.4 % (11.5-14.5); WBC 5.55 X 10*3/uL (4.50-10.00)
[2024-05-15 08:41] LABS: Basophils # (A) 0.01 X 10*3/uL (0.00-0.10); Basophils % (A) 0.2 %; Eosinophils # (A) 0.03 X 10*3/uL (0.04-0.35); Eosinophils % (A) 0.5 %; Lymphocytes # (A) 1.62 X 10*3/uL (0.90-5.00); Lymphocytes % (A) 29.2 %; Monocytes # (A) 0.38 X 10*3/uL (0.20-1.00); Monocytes % (A) 6.8 %; Neutrophils # (A) 3.48 X 10*3/uL (1.80-7.70); Neutrophils % (A) 62.8 %
[2024-05-15 09:09] LABS: ALT 17 U/L (8-44); AST 15 U/L (13-35); Albumin 3.3 g/dL (3.8-4.9); Albumin/Globulin Ratio 1.83 Ratio (1.60-3.17); Alkaline Phosphatase 55 U/L (41-126); Blood Urea Nitrogen 13.2 mg/dL (9.0-27.0); Calcium 8.1 mg/dL (8.7-10.3); Carbon Dioxide 30.4 mmol/L (21.6-31.8); Chloride 102 mmol/L (96-109); Globulin 1.8 g/dL (1.6-3.3); Glucose 107 mg/dL (70-110); Sodium 139 mmol/L (135-145); Total Bilirubin 0.4 mg/dL (0.3-1.2); Total Protein 5.1 g/dL (6.2-8.2)
--- NOTE | 2024-05-15 11:07 | P.PN ---
Subjective Progress Note Date: 05/14/24 Patient is seen by Dr. Chad Irizarry. Please refer to his note for details. Patient is a 69-year-old female with recent head trauma because of fall. Patient states that she came to the hospital on 05/05/2024 because of difficulty breathing related to her COPD. Patient states that she fell in the hospital yesterday as they were taking her to the bathroom and she fell. Patient states that she has neuropathy in her legs for which she is on gabapentin. Her toes to knees are numb bilaterally. Denies neuropathy involving the hands. Denies diabetes. Patient does have history of asthma and COPD. Patient has a dilated superior ophthalmic vein. MRI of the brain is negative. CTA and CTV is negative. Ophthalmology is consulted and he stated that her progressive blurring of the vision of the right more than the left is typically because of cataract probably related to underlying longstanding history of asthma intermittent chronic exposure to oral steroids. He felt the patient has glaucoma. He felt the superior ophthalmic vein enlargement without obvious ophthalmic involvement or contribution to the poor vision Some of the workup in the hospital during this admission consisted of: Initial presentation patient's pulse ox was 88% on 3 L of oxygen she was tachypn eic of 26. HbA1c: 5.5 TSH: 0.485 Vitamin B12: 326 Lipid Panel is triglyceride 127, cholesterol 275, LDL is 161 and HDL is 87. CT head showed nonspecific dilated bilateral superior ophthalamic vein with variety of etiology as vascular malformation, thrombosis versus other such increased intracranial pressure. Consider further evaluation with MRI brain orbit with IV contrast. No CT evidenc for hemorrhage, CVA or sgnificant mass effect. I personally reviewed CT and agree there is no acute or subacute stroke. I spoke with Dr. Santiago as second opinion and he felt dilaterl ophthalamic vein was more right > left. Carotid duplex is reported as no significant stenosis or atherosclerotic changes based on the color and gillespie scale imaging. No hemodynamically significant stenosis based on peak systolic velocity and ratio's. 2D echo is reported as technically difficult study. Definity echo contrast used for improved visualization of the Endo cardial borders. Normal left ventricle size systolic function. Very limited Doppler study. Moderate pericardial effusion with no evidence of tamponade. CTV: No evidence suggest dural venous thrombosis. CTA head and neck: No Significant diameter reduction to account for the patient symptoms. MRI Brain: It is reported as dilated right superior ophthalmic vein with no other secondary signs suggest carotid cavernous fistula or dural cavernous fistu la or superior ophthalmic vein thrombosis. 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 No acute ischemic event intracranial. No pathological enhancement. No mass effect or shift of the midline structures or intracranial. Objective - Vital Signs Vital signs: Vital Signs Temp 98.3 F 05/14/24 12:50 Pulse 84 05/14/24 15:45 Resp 16 05/14/24 12:50 BP 123/75 05/14/24 12:50 Pulse Ox 92 L 05/14/24 12:50 FiO2 Intake & Output 05/13/24 05/14/24 05/14/24 18:59 06:59 18:59 Intake Total 480 Balance 480 Weight 102.5 kg Intake: Oral 480 Other: Voiding Method Bedside Commode Bedside Commode Toilet Bedpan Bedpan # Voids 1 5 3 # Bowel Movements 1 1 - Exam Patient's mental status, speech and language functions are normal. Cranial nerves are normal. Visual smith are full, extraocular muscles are intact. Face is symmetric and tongue protrudes to midline. On muscle strength testing the strength is normal in the biceps, triceps and deltoid bilaterally. Cloth Boil Off Machine Operator are about 5-bilaterally. In the lower limbs hip flexion is between 4+5-and ankle dorsiflexion 5 bilaterally. Deep tendon reflexes are symmetric, 2+ at the biceps, 2+ brachioradialis, 1+ at the knees, 2+ ankles and plantars are downgoing. Patient has mild tremors of outstretched hands. No ataxia for neftox-dk-gtho testing. - Labs CBC & Chem 7: 05/15/24 03:09 05/15/24 03:09 Labs: Abnormal Lab Results - Last 24 Hours (Table) 05/14/24 05/14/24 Range/Units 02:47 02:47 MCV 106.6 H (80.0-97.0) FL MCH 32.2 H (27.0-32.0) pg MCHC 30.2 L (32.0-37.0) g/dL Plt Count 84 L (140-440) X 10*3/uL Immature Gran # 0.07 H (0.00-0.04) X 10*3/uL Eosinophils # 0.03 L (0.04-0.35) X 10*3/uL Carbon Dioxide 35.5 H (21.6-31.8) mmol/L BUN/Creatinine Ratio 22.83 H (12.00-20.00) Ratio Calcium 8.4 L (8.7-10.3) mg/dL Total Protein 5.1 L (6.2-8.2) g/dL Albumin 3.3 L (3.8-4.9) g/dL Assessment and Plan Assessment: * 69-year-old female who presented with difficulty breathing related to her COPD, has been having headache, dizziness, and visual disturbance since she fell a few weeks ago. CT of the head shows nonspecific dilated bilateral superior ophthalmic vein. * Recurrent falls, exact etiology uncertain. I suspect, patient gets myoclonic jerks, likely related to underlying COPD/CHF exacerbation. These myoclonic jerks can involve the legs, which can give away leading to the falls. Patient has history of bilateral knee and bilateral hip replacements, therefore may not have the best balance to begin with. * Visual disturbance and on the CT showed nonspecific dilated bilateral superior ophthalmic vein. Ophthalmology felt the patient has her blurring of the vision is due to her developing cataract probably related to underlying iglesia gstanding history of asthma as well as he felt the patient has glaucoma. He felt the superior ophthalmic vein enlargement is without obvious ophthalmic involvement or contribution to the poor vision. CT angiography of the head and neck as well as CTV is negative for any venous thrombosis. * Cephalgia likely postraumatic * Dizziness likely to postraumatic * Acute COPD exacerbation * Acute exacerbation of diastolic congestive heart failure * History of TIA. * Chronic hypoxic respiratory failure on home oxygen * Chronic ongoing tobacco use * Hypertension * History of peripheral neuropathy Plan: * Dr. Kimble From Ophthamology is consulted and recommend patient to follow-up with Dr. Jeronimo. * Low normal vitamin B12 326, started on vitamin b 12 1000mcg daily. TSH is normal at 0.485. Hemoglobin A1c 5.5. Check folic acid. * MRI of the cervical spine revealed no evidence for disc herniation or significant spinal canal stenosis. Mild to moderate disc degeneration with associated osteoarthritic changes worse at C4-C5, C5-C6 and C6-C7 with moderate bilateral, left greater than right neural foraminal stenosis. I personally reviewed MRI agree with the findings. No significant spinal stenosis. * MRI of the brain revealed dilated right superior ophthalmic vein with no other secondary signs to suggest carotid cavernous fistula or dural cavernous fistula or superior ophthalmic vein thrombosis. Findings most likely represent an isolated venous varix. No acute ischemic event intracranially. No pathological enhancement. No mass effect or midline shift. * Recommend EMG nerve conductions of lower extremities outpatient. * Pulmonary team on board for COPD exacerbation and acute exacerbation of diastolic CHF. * Consulted physical therapy and Occupational Therapy. * Will defer for the rest of the medical management to primary and other specialist
--- NOTE | 2024-05-15 11:16 | P.PN ---
Subjective Progress Note Date: 05/15/24 Fern Nickerson, is a 69-year-old female who presented to [facility] emergency room with a chief complaint of worsening shortness of breath She was evaluated in the emergency room vital examination on presentation revealed a temperature of 98 pulse 93 respiration 26 blood pressure 134/74 pulse ox 88% on 3 L nasal cannula Laboratory data reveals a white blood count of 6.8 hemoglobin 15.1 platelet count 146 BUN 5 creatinine 0.45 Testing in the emergency room revealed EKG revealed sinus rhythm normal EKG, chest x-ray revealed cardiomegaly with pulmonary vascular congestion Patient was admitted to medical floor for further evaluation and treatment Past medical history is significant for underlying history of COPD, history of chronic hypoxic and hypercapnic respiratory failure history of asthma, history of rheumatoid arthritis, history of osteoarthritis, prolonged history of tobacco use. On review of systems patient is alert and oriented x 3 in no apparent distress she denies any fever or chills no headache or dizziness no chest pain she stated that she is having shortness of breath with any activity no palpitation no cough no sputum production no nausea or vomiting no abdominal pain no diarrhea no blood in the stools, she has frequency and urgency with urination no hematuria. On 05/07/2024 patient is alert and oriented x 3. Patient remains on azithromycin, IV Solu-Medrol and Diamox. Cardiology and pulmonary services are following. 2D echo has been ordered. Current vital signs temp 98.5, heart rate 88, respiratory rate 18, blood pressure 143/75 with a pulse ox of 90% on 4 L On 05/08/2024 patient was seen and examined on the medical floor she is alert and oriented x 3 in no apparent distress, there is no fever or chills no headache or dizziness no chest pain, she is still having severe shortness of breath with any activity, she is still complaining of cough, no palpitation no nausea or vomiting no abdominal pain no diarrhea, she is still complaining of frequency with urination. CO2 has improved from 49-36.9 patient is maintained on oral Diamox, will continue with IV Solu-Medrol and inhaled bronchodilators, will continue to follow closely. On 05/09/2024 patient was seen and examined on the medical floor she is alert and oriented x 3 in no apparent distress she is still complaining of shortness of breath with any activity she is also complaining of dizziness otherwise she denies any complaints at this time there is no fever or chills no headache no chest pain no nausea or vomiting no abdominal pain no diarrhea no urinary symptoms. On 05/10/2024 patient is alert and oriented x 3. Patient has been transitioned to p.o. prednisone. Head CT completed showing nonspecific dilated bilateral superior ophthalmic veins. At this time will consult neurology services for further recommendations. Carotid Doppler completed showing no significant juliano nosis. Current vital signs temp 98.1, heart rate 78, respiratory rate 17, blood pressure 157/81 with a pulse ox of 94% on 3 L. Patient denies chest pain or shortness of breath. Patient denies nausea vomiting or diarrhea. Patient denies any urinary burning frequency On 05/11/2024 patient was seen and examined on the medical floor she is alert and oriented x 3 in no apparent distress she had a fall last night with bilateral knee injury, currently she is complaining of bilateral knee pain she denies any other complaints there is no fever or chills no headache or dizziness no chest pain, she stated that her shortness of breath and cough has improved there is no palpitation no nausea or vomiting no fever no diarrhea and no urinary symptoms. At this time will check bilateral knee x-ray, consultation for physical therapy and Occupational Therapy were initiated. Input from neurology reviewed awaiting results on CT angiogram of the brain and MRI of the brain. Input from pulmonary reviewed, will continue to follow closely. On 05/12/2024 patient is alert and oriented x 3. Optometry consulted recommendation of developing cataract and long standing history of asthma and oral steroids follow-up outpatient. Per nursing staff patient had episode of weakness requiring to be lowered to the floor. At this time discussed with patient that she may need rehab upon discharge will consult PT OT and social work services. Patient reports improvement with shortness of breath. Patient denies nausea vomiting or diarrhea. Patient denies any urinary burning or frequency. On 05/13/2024 patient was seen and examined on the medical floor she is alert and oriented x 3 in no apparent distress she is complaining of severe weakness and had to be lowered to the floor this morning she felt that she was going to fall, otherwise she denies any complaints her cough and shortness of breath has been improving there is no fever or chills no headache or dizziness no chest pain no palpitation no nausea or vomiting no abdominal pain no diarrhea no blood in the stools no burning with urination no frequency or urgency and no hematuria. At this time possibility of medication causing her severe weakness was discussed again with the patient she is very reluctant to decrease her medication as she stated that she has been on this regimen for a prolonged time however I told her that I would try to decrease gradually the dose on the hydrocodone, gabapentin, and tizanidine. Will assess progress closely. Input from pulmonary, ophthalmology, and neurology reviewed MRI of the brain reviewed bilateral knee x-rays reviewed. On 05/14/2024 patient is alert and oriented x 3. Patient refusing rehab insisting that she will go home with help. MRI of the cervical spine has been ordered per neurology. Current vital signs temp 97.6, heart rate 71, respiratory rate 13, blood pressure 133/69 with pulse ox of 96% on 3 L patient denies chest pain or shortness of breath patient denies nausea vomiting or diarrhea. Patient denies any urinary burning or frequency. On 05/15/2024 patient was seen and examined on the medical floor, she is alert and oriented x 3 in no apparent distress , she is complaining of generalized weakness , she is still having shortness of breath with any activity otherwise she denies any complaints , there is no fever or chills no headache or dizziness no chest pain, no shortness of breath at rest she has occasional cough no nausea or vomiting no abdominal pain no diarrhea no urinary symptoms. Multiple tests reviewed, patient is receiving physical therapy and Occupational Therapy, plan for discharge in the next 24 hours, patient is still refusing to go to rehab however, she was told that the plan is for discharge in the next 24 hours, either to home with home care or to a rehab unit. Objective - Vital Signs Vital signs: Vital Signs Temp 98.2 F 05/15/24 07:30 Pulse 85 05/15/24 07:38 Resp 16 05/15/24 09:25 BP 131/65 05/15/24 07:30 Pulse Ox 93 L 05/15/24 07:30 FiO2 Intake & Output 05/14/24 05/15/24 05/15/24 18:59 06:59 18:59 Intake Total 720 480 Balance 720 480 Weight 104.5 kg Intake: Oral 720 480 Other: Voiding Method Toilet Toilet Toilet Bedside Commode # Voids 3 7 1 # Bowel Movements 1 1 - Exam In general patient is alert and oriented x 3 in no distress HEENT head normocephalic and atraumatic Neck is supple no JVD no goiter no lymphadenopathy no carotid bruit Chest examination reveals a scattered crackles bilaterally with wheezing and prolonged expiratory phase Cardiac exam reveals regular heart sounds S1 and S2 no gallops no murmurs Abdomen is soft nontender no organomegaly with normal bowel sounds Extremity exam reveals no edema no cyanosis or clubbing Neurological examination reveals no gross focal deficits - Labs CBC & Chem 7: 05/15/24 03:09 05/15/24 03:09 Labs: Abnormal Lab Results - Last 24 Hours (Table) 05/15/24 05/15/24 Range/Units 03:09 03:09 RBC 4.09 L (4.10-5.20) X 10*6/uL MCV 104.2 H (80.0-97.0) FL MCHC 30.5 L (32.0-37.0) g/dL Plt Count 92 L (140-440) X 10*3/uL Eosinophils # 0.03 L (0.04-0.35) X 10*3/uL BUN/Creatinine Ratio 22.00 H (12.00-20.00) Ratio Calcium 8.1 L (8.7-10.3) mg/dL Total Protein 5.1 L (6.2-8.2) g/dL Albumin 3.3 L (3.8-4.9) g/dL Assessment and Plan Plan: Acute exacerbation of chronic obstructive pulmonary disease Acute on chronic hypoxic and hypercapnic respiratory failure Ongoing tobacco abuse patient was counseled in length regarding smoking cessation Possible congestive heart failure, with chest x-ray revealing cardiomegaly and pulmonary congestion, will check BNP and consult cardiology Underlying history of hypertension Underlying history of hyperlipidemia Underlying history of gastroesophageal reflux disease Underlying history of morbid obesity Possible obstructive sleep apnea At this time patient was seen and examined Home medications reviewed and reorderedhaled bronchodilators and inhaled steroid continued Cardiology and pulmonary consultation requested For DVT prophylaxis subcu Lovenox Patient was counseled regarding smoking cessation Will follow closely
--- NOTE | 2024-05-15 14:09 | P.CONS ---
History of Present Illness - Reason for Consult Consult date: 05/15/24 - Chief Complaint difficulty walking - History of Present Illness Fern Nickerson, is a 69-year-old female, , right handed who lives alone in an apartment with 1 LIN[address]. She ambulated with a walker or cane, occasionally used a wheelchair. She has an aide that comes in once a week to help with bathing. She notes she does tire easily. She has 2 sons, but they can help minimally as they work She presented to [facility] emergency room with a chief complaint of worsening shortness of breath. She was evaluated in the emergency room vital examination on presentation revealed a temperature of 98 pulse 93 respiration 26 blood pressure 134/74 pulse ox 88% on 3 L nasal cannula. Laboratory data reveals a white blood count of 6.8 hemoglobin 15.1 platelet count 146 BUN 5 creatinine 0.45. Testing in the emergency room revealed EKG revealed sinus rhythm normal EKG, chest x-ray revealed cardiomegaly with pulmonary vascular congestion. She has been diagnosed with an acute COPD exacerbation. Has been treated with azithromycin, IV Solu-Medrol and Diamox. Cardiology and pulmonary services are following. She has had a NRI brain which is negative. On 05/15/2024 patient was seen and examined on the medical floor, she is alert and oriented x 3 in no apparent distress , she is complaining of generalized weakness , she is still having shortness of breath with any activity otherwise she denies any complaints , there is no fever or chills no headache or dizziness no chest pain, no shortness of breath at rest she has occasional cough no nausea or vomiting no abdominal pain no diarrhea no urinary symptoms. Multiple tests reviewed, patient is receiving physical therapy and Occupational Therapy, plan for discharge in the next 24 hours, patient is still refusing to go to rehab however, she was told that the plan is for discharge in the next 24 hours, either to home with home care or to a rehab unit. She notes she has had multiple falls since her stay. She tires easily, has blurred vision in her right eye, is dizzy at times, SOB with activity being on hoome O2, has a dry cough, numbness in her legs, chronic pain in knees/shoulder/neck for which she is on 3 Belsano a day. With therapies has been mod A for transfers, unsafe to ambulate. Review of Systems + per above, o/w all systems reviewed negative Past Medical History Past Medical History: Asthma, COPD, Rheumatoid Arthritis (RA) History of Any Multi-Drug Resistant Organisms: None Reported Past Surgical History: Joint Replacement, Orthopedic Surgery Past Psychological History: No Psychological Hx Reported Smoking Status: Current every day smoker Past Alcohol Use History: None Reported Past Drug Use History: Marijuana Medications and Allergies Home Medications Medication Instructions Recorded Confirmed Type Albuterol Sulfate [Albuterol 2 puff PO RT-QID PRN 05/05/24 05/05/24 History Sulfate Hfa] Budesonide [Pulmicort] 0.5 mg INHALATION RT-BID 05/05/24 05/05/24 History Ergocalciferol (Vitamin D2) 1,250 mcg PO Q7D 05/05/24 05/05/24 History [Drisdol (50,000 Iu)] Escitalopram [Lexapro] 10 mg PO HS 05/05/24 05/05/24 History Gabapentin [Neurontin] 300 mg PO TID 05/05/24 05/05/24 History HYDROcodone/APAP 10-325MG [Belsano 1 tab PO TID 05/05/24 05/05/24 History 10-325] Ipratropium-Albuterol Nebulize 3 ml INHALATION RT-TID 05/05/24 05/05/24 History [Duoneb 0.5 mg-3 mg/3 ml Soln] Latanoprost [Latanoprost 0.005%] 1 drop BOTH EYES HS 05/05/24 05/05/24 History Montelukast [Singulair] 10 mg PO HS 05/05/24 05/05/24 History Omeprazole [PriLOSEC] 20 mg PO BID 05/05/24 05/05/24 History Temazepam [Restoril] 15 mg PO HS 05/05/24 05/05/24 History tiZANidine HCL 8 mg PO BID 05/05/24 05/05/24 History Allergies Allergy/AdvReac Type Severity Reaction Status Date / Time No Known Allergies Allergy Verified 05/05/24 18:44 Physical Exam Vitals: Vital Signs Temp Pulse Pulse Resp BP Pulse Ox 05/15/24 09:25 16 05/15/24 07:38 85 05/15/24 07:30 98.2 F 82 16 131/65 93 L 05/15/24 07:28 84 96 05/15/24 02:00 98.0 F 79 16 162/79 94 L 05/14/24 21:07 98.2 F 82 17 119/56 91 L 05/14/24 20:56 88 05/14/24 20:44 78 05/14/24 15:45 84 05/14/24 15:35 82 Intake and Output 05/14/24 05/15/24 05/15/24 22:59 06:59 14:59 Intake Total 240 480 Balance 240 480 Intake: Oral 240 480 Other: Voiding Method Toilet Toilet Bedside Commode # Voids 7 1 # Bowel Movements 1 Weight 104.5 kg Gen: NAD, alert and oriented x4 HEENT head normocephalic and atraumatic Neck is supple Chest: non-labored respiratons, on 2L O2 CV: regular rate. Abdomen is soft nontender Extremity trace LE edema, no calf TTP Neurological: CN 2-12 intact, MMT 4+/5 except decreased shoulders and left HF/KE secondary to pain. SILT except decreased below knees bilaterally Results CBC & Chem 7: 05/15/24 03:09 05/15/24 03:09 Labs: Abnormal Lab Results - Last 24 Hours (Table) 05/15/24 05/15/24 Range/Units 03:09 03:09 RBC 4.09 L (4.10-5.20) X 10*6/uL MCV 104.2 H (80.0-97.0) FL MCHC 30.5 L (32.0-37.0) g/dL Plt Count 92 L (140-440) X 10*3/uL Eosinophils # 0.03 L (0.04-0.35) X 10*3/uL BUN/Creatinine Ratio 22.00 H (12.00-20.00) Ratio Calcium 8.1 L (8.7-10.3) mg/dL Total Protein 5.1 L (6.2-8.2) g/dL Albumin 3.3 L (3.8-4.9) g/dL Assessment and Plan Assessment: # Gait impairment, frequent falls - continue PT/OT # Acute exacerbation of chronic obstructive pulmonary disease # Acute on chronic hypoxic and hypercapnic respiratory failure # Ongoing tobacco abuse patient was counseled in length regarding smoking cessation # Possible congestive heart failure, with chest x-ray revealing cardiomegaly and pulmonary congestion # Chronic pain # Peripheral neuropathy # Underlying history of hypertension # Underlying history of hyperlipidemia # Underlying history of gastroesophageal reflux disease # Underlying history of morbid obesity # Possible obstructive sleep apnea Recs: - per your medical management - continue therapies At this time, patient is most appropriate for BOGDAN when medically stable.
--- NOTE | 2024-05-15 18:15 | P.PN ---
Subjective Progress Note Date: 05/15/24 Patient is a 69-year-old white female with past medical history significant for asthma/COPD, current everyday smoker, GERD. Her primary care provider is Dr. Jovel. She does have history of oxygen dependent COPD. Previously followed with Dr. Renate Lopez, but not currently following with any switchboard mechanic. She is normally maintained on 2 to 3 L of nasal cannula 20/02. She is being evaluated in the emergency department. She is sitting up in the bedside recliner. Alert and oriented. She is resting comfortably on 3 L/min nasal cannula. No signs of CO2 narcosis. She feels that her asthma/COPD is active. Over the last 3 days she has had progressively worsening shortness of breath. Denies fevers. Denies URI-like symptoms. She has a congested cough which is mostly nonproductive. Denies chest pain. Denies hemoptysis. She continues to smoke approximately 1/2 pack/day. Viral screen negative for COVID, influenza, RSV. Denies sick contacts. Chest x-ray showing cardiomegaly and possible mild pulmonary vascular congestion. NT proBNP was only 581. She was initiated on Lasix 40 mg twice daily in the emergency department. Troponin less than 0.012. EKG: Normal sinus rhythm, 90 bpm, no acute ischemic changes. Denies chest pain or increased lower extremity swelling. Endorses orthopnea. CBC: WBC count 6.8, hemoglobin 15.1, hematocrit 49.4, platelets 146. CMP: Sodium 137, potassium 4.5, chloride 94, serum bicarb 41, BUN 5, creatinine 0.45, glucose 110. Lactic 0.9. LFTs unremarkable. Hemodynamics are fairly stable. Blood pressure hypertensive. The patient is seen today May 07, 2024 in follow-up on the regular medical floor. She is awake and alert in no acute distress. Maintaining good O2 saturation in the 90s on 2 L/min per nasal cannula. She has been afebrile. He modynamically stable. Procalcitonin negative at 0.05. Antibiotics discontinued. Continued on DuoNebs, Pulmicort, Singulair Solu-Medrol. NicoDerm patch in place. The patient is seen today May 08, 2024 in follow-up on the regular medical floor. She is currently sitting up in a chair at the bedside. Awake and alert in no acute distress. Maintaining good O2 saturations in the 90s on 2 L/min per nasal cannula. She is continued on DuoNeb and elations, Pulmicort inhalations, Solu-Medrol. NicoDerm patch in place. Lovenox for DVT prophylaxis. White count 5.1. Hemoglobin 15.0. Platelets 114. Sodium 137. Potassium 4.5. Bicarb 37. BUN 18. Creatinine 0.6. Glucose 168. The patient is seen today May 09, 2024 in follow-up on the regular medical floor. She is currently sitting up in a chair at the bedside. Awake and alert in no acute distress. She is maintaining O2 saturations in the 90s on 3 L/min per nasal cannula.. She is afebrile. Hemodynamically stable. White count 8.4. Hemoglobin 17.4. Platelets 155. Sodium 138. Potassium 4.9. Bicarb 38. BUN 19. Creatinine 0.8. Glucose 124. She remains on DuoNeb inhalations, Pulmicort inhalations, Solu-Medrol. NicoDerm patch in place. Lovenox for DVT prophylaxis. The patient is seen today May 10, 2024 in follow-up on the regular medical floor. She is currently resting comfortably in bed. Awake and alert in no acute distress. Maintaining good O2 saturations in the 90s on 2 L/min per nasal cannula. Carotid Dopplers revealed no significant stenosis. Blood culture revealed no growth. White count 6.6. Hemoglobin 15.3. Platelets 112. Sodium 138. Potassium 4.6. Bicarb 38. BUN 21. Creatinine 0.8. Glucose 133. She remains on DuoNeb inhalations, Symbicort, Singulair, Solu-Medrol. Lovenox for DVT prophylaxis. NicoDerm patch in place. Continued on Diamox. The patient is seen today May 11, 2024 in follow-up on the regular medical floor. She is currently sitting up in a chair. Awake and alert in no acute distress. Maintaining O2 saturations in the 90s on 4 L/min per nasal cannula. She states she did have a fall last evening. This was witnessed by the nurse assistant women's basketball coach and the patient legs gave out from under her while ambulating to the bathroom and she landed on her buttocks and rolled onto her back. Denies any significant injury. Head CT angiogram and CT angiography revealed no acute process. White count 7.2. Hemoglobin 15.7. Platelets 109. Sodium 146. Potassium 4.6. Bicarb 39. BUN 20. Creatinine 0.6. Glucose 93. She remains on DuoNeb inhalations, Symbicort, Singulair, prednisone. Lovenox for DVT prophylaxis. NicoDerm patch in place. Continued on Diamox. The patient is seen today May 12, 2024 in follow-up on the regular medical floor. She is currently resting in bed. Awake and alert in no acute distress. She is maintaining O2 saturation in the 90s on 4 L/min per nasal cannula. She sustained another fall yesterday. She states her legs are giving out on her. CT scan of the brain revealed no acute event. 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 Ophthalmology had been consulted. X-ray of the knees revealed no evidence of fracture. White count 11.7. Hemoglobin 15.4. Glucose 97. She is continued on Symbicort, DuoNebs, prednisone taper. NicoDerm patch in place. Lovenox for DVT prophylaxis. 05/13/2024, patient is being seen for a follow-up. Doing well. No new complaints as the patient completes a prednisone burst taper and she is on DuoNebs about treatments [id number]. She is currently out of 30 mg of prednisone as part of a burst taper. She is on Lovenox for DVT prophylaxis. Nodule worsening shortness of breath. She is weak and she would like to have some more rehabilitation. White cell count is at 7 with a hemoglobin 13 and a platelet count of 99. BUN is 13 with a creatinine of 1.5. Sodium levels at 144. No new complaints otherwise for now. No significant respiratory distress. On 05/14/2024, the patient is being seen for a follow-up. The patient has a component of an acute CF exacerbation and CHF exacerbation with a mildly elevated proBNP level. She is a chronic smoker. She remains on O2 and she is currently on 4 L of O2 nasal cannula. She remains on DuoNeb nebulized treatments [id number] and she is also on prednisone burst taper starting with 30 mg p.o. daily. She is feeling better. She has improved strength compared to yesterday and she was able to get up with assistance and is current and she is currently sitting up in a chair. The white cell count is at 6.2 with a heme of 13.7 and a platelet count of 84. BUN is at 13 with a creatinine of 0.6 and a sodium levels at 143. She remains on Lovenox 40 mg subcu for DVT prophylaxis. A drop in the platelet count was noted. She remains on Diamox to 50 mg p.o. twice a day. Rest of the medications are essentially unchanged. She is on [place] for pain control. Awake and alert and communicating. No signs of any CO2 narcosis. Denies having angina or palpitations. She feels that she can get stronger and ultimately she plans to go home. 05/15/2024, no new complaints at the patient is completing a prednisone burst taper. She remains on DuoNeb updrafts. No other changes in the medications for now. She remains on Diamox to 50 mg p.o. twice a day. Her metabolic alkalosis was improving and the serum bicarb was down to 30. Rest of the electrolytes were normal with a sodium level of 139, potassium of 4, chloride is 102, white cell count at 5.5 with a hemoglobin of 13. The patient was interested in going home. Nevertheless, based on his underlying generalized weakness, should be sent to ECF probably by tomorrow. MRI of the cervical spine was completed and showed mild to moderate disc degenerative changes involving C4-C5, C5-6 and C6- 7. No evidence of any significant spinal canal stenosis. Objective - Vital Signs Vital signs: Vital Signs Temp 98.2 F 05/15/24 07:30 Pulse 85 05/15/24 07:38 Resp 16 05/15/24 09:25 BP 131/65 05/15/24 07:30 Pulse Ox 93 L 05/15/24 07:30 FiO2 Intake & Output 05/14/24 05/15/24 05/15/24 18:59 06:59 18:59 Intake Total 720 480 Balance 720 480 Weight 104.5 kg Intake: Oral 720 480 Other: Voiding Method Toilet Toilet Toilet Bedside Commode # Voids 3 7 1 # Bowel Movements 1 1 - Exam GENERAL EXAM: Alert, pleasant 69-year-old obese female, resting in bed, on 3 L/ min per nasal cannula, in no apparent distress. HEAD: Normocephalic and atraumatic EYES: Normal reaction of pupils, equal size. NOSE: Clear with pink turbinates. THROAT: No erythema or exudates. NECK: No masses, no JVD. CHEST: No chest wall deformity. LUNGS: Equal air entry with faint wheezing and rhonchi heard bilaterally. CVS: S1 and S2 normal with no audible murmur, regular rhythm. No extra heart sounds ABDOMEN: No hepatosplenomegaly, active bowel sounds, no guarding or rigidity. SPINE: No scoliosis or deformity SKIN: No rashes CENTRAL NERVOUS SYSTEM: No focal deficits, tone is normal in all 4 extremities. EXTREMITIES: There is no peripheral edema, clubbing, or cyanosis. Peripheral pulses are intact. - Labs CBC & Chem 7: 05/15/24 03:09 05/15/24 03:09 Labs: Abnormal Lab Results - Last 24 Hours (Table) 05/15/24 05/15/24 Range/Units 03:09 03:09 RBC 4.09 L (4.10-5.20) X 10*6/uL MCV 104.2 H (80.0-97.0) FL MCHC 30.5 L (32.0-37.0) g/dL Plt Count 92 L (140-440) X 10*3/uL Eosinophils # 0.03 L (0.04-0.35) X 10*3/uL BUN/Creatinine Ratio 22.00 H (12.00-20.00) Ratio Calcium 8.1 L (8.7-10.3) mg/dL Total Protein 5.1 L (6.2-8.2) g/dL Albumin 3.3 L (3.8-4.9) g/dL Assessment and Plan Plan: Acute COPD exacerbation, improved, still on Duoneb and a prednisone taper on 30 mg of prednisone Acute exacerbation of diastolic congestive heart failure; chest x-ray showing cardiomegaly and possible mild pulmonary vascular congestion. NT proBNP only mildly elevated at 581. Acute on chronic hypoxemic respiratory failure, secondary to above Chronic hypoxemic respiratory failure, normally maintained on 2 to 3 L on an outpatient basis Chronic ongoing tobacco dependence, with over [id number] history Hypertension History of GERD Morbid obesity, with BMI of 38.3 kg/m Post fall without injury 05/10/2024 and 05/11/2024 Metabolic alkalosis, improved with Diamox Generalized weakness, mild degenerative changes involving cervical spine without any cervical stenosis or impingement of the cervical spine. Plan: Clinically improved, MRI of the cervical spine was noted and the patient is seeking ECF Has home oxygen/breathing treatments Complete a prednisone taper Continue Lovenox and monitor the platelet count Will continue to follow.
[2024-05-15] MEDS: TEMAZEPAM 7.5 MG CAP PO PRN (22:58)
[2024-05-16 08:11] LABS: Glucose,Whole Blood 87 mg/dL (70-110)
[2024-05-16] MEDS: FOLIC ACID 1 MG TAB PO SCH (10:04)
--- NOTE | 2024-05-16 12:10 | P.PN ---
Subjective Progress Note Date: 05/15/24 05/15/2024: Patient was seen for a follow-up. Patient is sitting comfortably in the recliner. Patient states she has history of right knee and bilateral hip replacements in the past. Her myoclonic jerks have improved. 05/14/2024: Patient is seen by Dr. Chad Irizarry. Please refer to his note for details. Patient is a 69-year-old female with recent head trauma because of fall. Patient states that she came to the hospital on 05/05/2024 because of difficulty breathing related to her COPD. Patient states that she fell in the hospital yesterday as they were taking her to the bathroom and she fell. Patient states that she has neuropathy in her legs for which she is on gabapentin. Her toes to knees are numb bilaterally. Denies neuropathy involving the hands. Denies diabetes. Patient does have history of asthma and COPD. Patient has a dilated superior ophthalmic vein. MRI of the brain is negative. CTA and CTV is negative. Ophthalmology is consulted and he stated that her progressive blurring of the vision of the right more than the left is typically because of cataract probably related to underlying longstanding history of asthma intermittent chronic exposure to oral steroids. He felt the patient has glaucoma. He felt the superior ophthalmic vein enlargement without obvious ophthalmic involvement or contribution to the poor vision Some of the workup in the hospital during this admission consisted of: Initial presentation patient's pulse ox was 88% on 3 L of oxygen she was tachypneic of 26. HbA1c: 5.5 TSH: 0.485 Vitamin B12: 326 Lipid Panel is triglyceride 127, cholesterol 275, LDL is 161 and HDL is 87. CT head showed nonspecific dilated bilateral superior ophthalamic vein with variety of etiology as vascular malformation, thrombosis versus other such increased intracranial pressure. Consider further evaluation with MRI brain orbit with IV contrast. No CT evidenc for hemorrhage, CVA or sgnificant mass effect. I personally reviewed CT and agree there is no acute or subacute stroke. I spoke with Dr. Santiago as second opinion and he felt dilaterl ophthalamic vein was more right > left. Carotid duplex is reported as no significant stenosis or atherosclerotic changes based on the color and gillespie scale imaging. No hemodynamically significant stenosis based on peak systolic velocity and ratio's. 2D echo is reported as technically difficult study. Definity echo contrast used for improved visualization of the Endo cardial borders. Normal left ventricle size systolic function. Very limited Doppler study. Moderate pericardial effusion with no evidence of tamponade. CTV: No evidence suggest dural venous thrombosis. CTA head and neck: No Significant diameter reduction to account for the patient symptoms. MRI Brain: It is reported as dilated right superior ophthalmic vein with no other secondary signs suggest carotid cavernous fistula or dural cavernous fistula or superior ophthalmic vein thrombosis. 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 No acute ischemic event intracranial. No pathological enhancement. No mass effect or shift of the midline structures or intracranial. Objective - Vital Signs Vital signs: Vital Signs Temp 99.2 F 05/15/24 13:05 Pulse 86 05/15/24 15:55 Resp 18 05/15/24 13:05 BP 137/76 05/15/24 13:05 Pulse Ox 90 L 05/15/24 13:05 FiO2 Intake & Output 05/15/24 05/15/24 05/16/24 06:59 18:59 06:59 Intake Total 838 Balance 838 Weight 104.5 kg Intake: Oral 838 Other: Voiding Method Toilet Toilet Bedside Commode # Voids 7 3 # Bowel Movements 1 - Exam Patient's mental status, speech and language functions are normal. Examination is unchanged. Cranial nerves are normal. Visual smith are full, extraocular muscles are intact. Face is symmetric and tongue protrudes to midline. On muscle strength testing the strength is normal in the biceps, triceps and deltoid bilaterally. Assistant Grocery Store Manager are about 5-bilaterally. In the lower limbs hip flexion is between 4+5-and ankle dorsiflexion 5 bilaterally. Deep tendon reflexes are symmetric, 2+ at the biceps, 2+ brachioradialis, 1+ at the knees, 2+ ankles and plantars are downgoing. Patient has mild tremors of outstretched hands. No myoclonic jerks observed. No ataxia for [id number] testing. - Labs CBC & Chem 7: 05/15/24 03:09 05/15/24 03:09 Labs: Abnormal Lab Results - Last 24 Hours (Table) 05/15/24 05/15/24 Range/Units 03:09 03:09 RBC 4.09 L (4.10-5.20) X 10*6/uL MCV 104.2 H (80.0-97.0) FL MCHC 30.5 L (32.0-37.0) g/dL Plt Count 92 L (140-440) X 10*3/uL Eosinophils # 0.03 L (0.04-0.35) X 10*3/uL BUN/Creatinine Ratio 22.00 H (12.00-20.00) Ratio Calcium 8.1 L (8.7-10.3) mg/dL Total Protein 5.1 L (6.2-8.2) g/dL Albumin 3.3 L (3.8-4.9) g/dL Assessment and Plan Assessment: * 69-year-old female who presented with difficulty breathing related to her COPD, has been having headache, dizziness, and visual disturbance since she fell a few weeks ago. CT of the head shows nonspecific dilated bilateral superior ophthalmic vein. * Recurrent falls, exact etiology uncertain. I suspect, patient gets myoclonic jerks, likely related to underlying COPD/CHF exacerbation. These myoclonic jerks can involve the legs, which can give away leading to the falls. Patient has history of bilateral knee and bilateral hip replacements, therefore may not have the best balance to begin with. * Visual disturbance and on the CT showed nonspecific dilated bilateral superior ophthalmic vein. Ophthalmology felt the patient has her blurring of the vision is due to her developing cataract probably related to underlying longstanding history of asthma as well as he felt the patient has glaucoma. He felt the superior ophthalmic vein enlargement is without obvious ophthalmic involvement or contribution to the poor vision. CT angiography of the head and neck as well as CTV is negative for any venous thrombosis. * Cephalgia likely postraumatic * Dizziness likely to postraumatic * Acute COPD exacerbation * Acute exacerbation of diastolic congestive heart failure * History of TIA. * Chronic hypoxic respiratory failure on home oxygen * Chronic ongoing tobacco use * Hypertension * History of peripheral neuropathy Plan: * Dr. Kimble From Ophthamology is consulted and recommend patient to follow-up with Dr. Jeronimo. * Low normal vitamin B12 326, started on vitamin b 12 1000mcg daily. TSH is normal at 0.485. Hemoglobin A1c 5.5. Folic acid 7.50. Start folic acid 1 mg daily. * MRI of the cervical spine revealed no evidence for disc herniation or significant spinal canal stenosis. Mild to moderate disc degeneration with associated osteoarthritic changes worse at C4-C5, C5-C6 and C6-C7 with moderate bilateral, left greater than right neural foraminal stenosis. I personally reviewed MRI agree with the findings. No significant spinal stenosis. * MRI of the brain revealed dilated right superior ophthalmic vein with no other secondary signs to suggest carotid cavernous fistula or dural cavernous fistu la or superior ophthalmic vein thrombosis. Findings most likely represent an isolated venous varix. No acute ischemic event intracranially. No pathological enhancement. No mass effect or midline shift. * Recommend EMG nerve conductions of lower extremities outpatient. * Pulmonary team on board for COPD exacerbation and acute exacerbation of diastolic CHF. * Consulted physical therapy and Occupational Therapy. * Will defer for the rest of the medical management to primary and other sp ecialist * Neurologically clear for discharge. Please reconsult neurology if any concerns.
--- NOTE | 2024-05-16 17:18 | P.PN ---
Subjective Progress Note Date: 05/16/24 Fern Nickerson, is a 69-year-old female who presented to [facility] emergency room with a chief complaint of worsening shortness of breath She was evaluated in the emergency room vital examination on presentation revealed a temperature of 98 pulse 93 respiration 26 blood pressure 134/74 pulse ox 88% on 3 L nasal cannula Laboratory data reveals a white blood count of 6.8 hemoglobin 15.1 platelet count 146 BUN 5 creatinine 0.45 Testing in the emergency room revealed EKG revealed sinus rhythm normal EKG, chest x-ray revealed cardiomegaly with pulmonary vascular congestion Patient was admitted to medical floor for further evaluation and treatment Past medical history is significant for underlying history of COPD, history of chronic hypoxic and hypercapnic respiratory failure history of asthma, history of rheumatoid arthritis, history of osteoarthritis, prolonged history of tobacco use. On review of systems patient is alert and oriented x 3 in no apparent distress she denies any fever or chills no headache or dizziness no chest pain she stated that she is having shortness of breath with any activity no palpitation no cough no sputum production no nausea or vomiting no abdominal pain no diarrhea no blood in the stools, she has frequency and urgency with urination no hematuria. On 05/07/2024 patient is alert and oriented x 3. Patient remains on azithromycin, IV Solu-Medrol and Diamox. Cardiology and pulmonary services are following. 2D echo has been ordered. Current vital signs temp 98.5, heart rate 88, respiratory rate 18, blood pressure 143/75 with a pulse ox of 90% on 4 L On 05/08/2024 patient was seen and examined on the medical floor she is alert and oriented x 3 in no apparent distress, there is no fever or chills no headache or dizziness no chest pain, she is still having severe shortness of breath with any activity, she is still complaining of cough, no palpitation no nausea or vomiting no abdominal pain no diarrhea, she is still complaining of frequency with urination. CO2 has improved from 49-36.9 patient is maintained on oral Diamox, will continue with IV Solu-Medrol and inhaled bronchodilators, will continue to follow closely. On 05/09/2024 patient was seen and examined on the medical floor she is alert and oriented x 3 in no apparent distress she is still complaining of shortness of breath with any activity she is also complaining of dizziness otherwise she denies any complaints at this time there is no fever or chills no headache no chest pain no nausea or vomiting no abdominal pain no diarrhea no urinary symptoms. On 05/10/2024 patient is alert and oriented x 3. Patient has been transitioned to p.o. prednisone. Head CT completed showing nonspecific dilated bilateral superior ophthalmic veins. At this time will consult neurology services for further recommendations. Carotid Doppler completed showing no significant juliano nosis. Current vital signs temp 98.1, heart rate 78, respiratory rate 17, blood pressure 157/81 with a pulse ox of 94% on 3 L. Patient denies chest pain or shortness of breath. Patient denies nausea vomiting or diarrhea. Patient denies any urinary burning frequency On 05/11/2024 patient was seen and examined on the medical floor she is alert and oriented x 3 in no apparent distress she had a fall last night with bilateral knee injury, currently she is complaining of bilateral knee pain she denies any other complaints there is no fever or chills no headache or dizziness no chest pain, she stated that her shortness of breath and cough has improved there is no palpitation no nausea or vomiting no fever no diarrhea and no urinary symptoms. At this time will check bilateral knee x-ray, consultation for physical therapy and Occupational Therapy were initiated. Input from neurology reviewed awaiting results on CT angiogram of the brain and MRI of the brain. Input from pulmonary reviewed, will continue to follow closely. On 05/12/2024 patient is alert and oriented x 3. Optometry consulted recommendation of developing cataract and long standing history of asthma and oral steroids follow-up outpatient. Per nursing staff patient had episode of weakness requiring to be lowered to the floor. At this time discussed with patient that she may need rehab upon discharge will consult PT OT and social work services. Patient reports improvement with shortness of breath. Patient denies nausea vomiting or diarrhea. Patient denies any urinary burning or frequency. On 05/13/2024 patient was seen and examined on the medical floor she is alert and oriented x 3 in no apparent distress she is complaining of severe weakness and had to be lowered to the floor this morning she felt that she was going to fall, otherwise she denies any complaints her cough and shortness of breath has been improving there is no fever or chills no headache or dizziness no chest pain no palpitation no nausea or vomiting no abdominal pain no diarrhea no blood in the stools no burning with urination no frequency or urgency and no hematuria. At this time possibility of medication causing her severe weakness was discussed again with the patient she is very reluctant to decrease her medication as she stated that she has been on this regimen for a prolonged time however I told her that I would try to decrease gradually the dose on the hydrocodone, gabapentin, and tizanidine. Will assess progress closely. Input from pulmonary, ophthalmology, and neurology reviewed MRI of the brain reviewed bilateral knee x-rays reviewed. On 05/14/2024 patient is alert and oriented x 3. Patient refusing rehab insisting that she will go home with help. MRI of the cervical spine has been ordered per neurology. Current vital signs temp 97.6, heart rate 71, respiratory rate 13, blood pressure 133/69 with pulse ox of 96% on 3 L patient denies chest pain or shortness of breath patient denies nausea vomiting or diarrhea. Patient denies any urinary burning or frequency. On 05/15/2024 patient was seen and examined on the medical floor, she is alert and oriented x 3 in no apparent distress , she is complaining of generalized weakness , she is still having shortness of breath with any activity otherwise she denies any complaints , there is no fever or chills no headache or dizziness no chest pain, no shortness of breath at rest she has occasional cough no nausea or vomiting no abdominal pain no diarrhea no urinary symptoms. Multiple tests reviewed, patient is receiving physical therapy and Occupational Therapy, plan for discharge in the next 24 hours, patient is still refusing to go to rehab however, she was told that the plan is for discharge in the next 24 hours, either to home with home care or to a rehab unit. On 05/16/2024 patient was seen and examined on the medical floor she is alert and oriented x 3 in no apparent distress there is no fever or chills no headache or dizziness no chest pain no shortness of breath at rest she is still having shortness of breath with activity she has occasional cough no nausea or vomiting no abdominal pain no diarrhea no blood in the stools, no burning with urination no frequency or urgency and no hematuria. At this time patient is still having severe weakness she had multiple falls before and during this admission, we are still awaiting insurance authorization for senior living placement for rehab. Objective - Vital Signs Vital signs: Vital Signs Temp 98.7 F 05/16/24 14:00 Pulse 73 05/16/24 14:00 Resp 18 05/16/24 14:00 BP 119/67 05/16/24 14:00 Pulse Ox 94 L 05/16/24 14:00 FiO2 Intake & Output 05/15/24 05/16/24 05/16/24 18:59 06:59 18:59 Intake Total 838 2080 118 Balance 838 0 118 Weight 105.5 kg Intake: Oral 838 2079 118 Other: Voiding Method Toilet Toilet Bedside Commode Bedside Commode # Voids 3 10 # Bowel Movements 1 2 - Exam In general patient is alert and oriented x 3 in no distress HEENT head normocephalic and atraumatic Neck is supple no JVD no goiter no lymphadenopathy no carotid bruit Chest examination reveals a scattered crackles bilaterally with wheezing and prolonged expiratory phase Cardiac exam reveals regular heart sounds S1 and S2 no gallops no murmurs Abdomen is soft nontender no organomegaly with normal bowel sounds Extremity exam reveals no edema no cyanosis or clubbing Neurological examination reveals no gross focal deficits - Labs CBC & Chem 7: 05/15/24 03:09 05/15/24 03:09 Assessment and Plan Plan: Acute exacerbation of chronic obstructive pulmonary disease Acute on chronic hypoxic and hypercapnic respiratory failure Ongoing tobacco abuse patient was counseled in length regarding smoking cessation Possible congestive heart failure, with chest x-ray revealing cardiomegaly and pulmonary congestion, will check BNP and consult cardiology Underlying history of hypertension Underlying history of hyperlipidemia Underlying history of gastroesophageal reflux disease Underlying history of morbid obesity Possible obstructive sleep apnea At this time patient was seen and examined Home medications reviewed and reorderedhaled bronchodilators and inhaled steroid continued Cardiology and pulmonary consultation requested For DVT prophylaxis subcu Lovenox Patient was counseled regarding smoking cessation Will follow closely
--- NOTE | 2024-05-16 19:26 | P.PN ---
Subjective Progress Note Date: 05/16/24 Patient is a 69-year-old white female with past medical history significant for asthma/COPD, current everyday smoker, GERD. Her primary care provider is Dr. Jovel. She does have history of oxygen dependent COPD. Previously followed with Dr. Renate Lopez, but not currently following with any lay out former. She is normally maintained on 2 to 3 L of nasal cannula 20/02. She is being evaluated in the emergency department. She is sitting up in the bedside recliner. Alert and oriented. She is resting comfortably on 3 L/min nasal cannula. No signs of CO2 narcosis. She feels that her asthma/COPD is active. Over the last 3 days she has had progressively worsening shortness of breath. Denies fevers. Denies URI-like symptoms. She has a congested cough which is mostly nonproductive. Denies chest pain. Denies hemoptysis. She continues to smoke approximately 1/2 pack/day. Viral screen negative for COVID, influenza, RSV. Denies sick contacts. Chest x-ray showing cardiomegaly and possible mild pulmonary vascular congestion. NT proBNP was only 581. She was initiated on Lasix 40 mg twice daily in the emergency department. Troponin less than 0.012. EKG: Normal sinus rhythm, 90 bpm, no acute ischemic changes. Denies chest pain or increased lower extremity swelling. Endorses orthopnea. CBC: WBC count 6.8, hemoglobin 15.1, hematocrit 49.4, platelets 146. CMP: Sodium 137, potassium 4.5, chloride 94, serum bicarb 41, BUN 5, creatinine 0.45, glucose 110. Lactic 0.9. LFTs unremarkable. Hemodynamics are fairly stable. Blood pressure hypertensive. The patient is seen today May 07, 2024 in follow-up on the regular medical floor. She is awake and alert in no acute distress. Maintaining good O2 saturation in the 90s on 2 L/min per nasal cannula. She has been afebrile. He modynamically stable. Procalcitonin negative at 0.05. Antibiotics discontinued. Continued on DuoNebs, Pulmicort, Singulair Solu-Medrol. NicoDerm patch in place. The patient is seen today May 08, 2024 in follow-up on the regular medical floor. She is currently sitting up in a chair at the bedside. Awake and alert in no acute distress. Maintaining good O2 saturations in the 90s on 2 L/min per nasal cannula. She is continued on DuoNeb and elations, Pulmicort inhalations, Solu-Medrol. NicoDerm patch in place. Lovenox for DVT prophylaxis. White count 5.1. Hemoglobin 15.0. Platelets 114. Sodium 137. Potassium 4.5. Bicarb 37. BUN 18. Creatinine 0.6. Glucose 168. The patient is seen today May 09, 2024 in follow-up on the regular medical floor. She is currently sitting up in a chair at the bedside. Awake and alert in no acute distress. She is maintaining O2 saturations in the 90s on 3 L/min per nasal cannula.. She is afebrile. Hemodynamically stable. White count 8.4. Hemoglobin 17.4. Platelets 155. Sodium 138. Potassium 4.9. Bicarb 38. BUN 19. Creatinine 0.8. Glucose 124. She remains on DuoNeb inhalations, Pulmicort inhalations, Solu-Medrol. NicoDerm patch in place. Lovenox for DVT prophylaxis. The patient is seen today May 10, 2024 in follow-up on the regular medical floor. She is currently resting comfortably in bed. Awake and alert in no acute distress. Maintaining good O2 saturations in the 90s on 2 L/min per nasal cannula. Carotid Dopplers revealed no significant stenosis. Blood culture revealed no growth. White count 6.6. Hemoglobin 15.3. Platelets 112. Sodium 138. Potassium 4.6. Bicarb 38. BUN 21. Creatinine 0.8. Glucose 133. She remains on DuoNeb inhalations, Symbicort, Singulair, Solu-Medrol. Lovenox for DVT prophylaxis. NicoDerm patch in place. Continued on Diamox. The patient is seen today May 11, 2024 in follow-up on the regular medical floor. She is currently sitting up in a chair. Awake and alert in no acute distress. Maintaining O2 saturations in the 90s on 4 L/min per nasal cannula. She states she did have a fall last evening. This was witnessed by the nurse call center assistant and the patient legs gave out from under her while ambulating to the bathroom and she landed on her buttocks and rolled onto her back. Denies any significant injury. Head CT angiogram and CT angiography revealed no acute process. White count 7.2. Hemoglobin 15.7. Platelets 109. Sodium 146. Potassium 4.6. Bicarb 39. BUN 20. Creatinine 0.6. Glucose 93. She remains on DuoNeb inhalations, Symbicort, Singulair, prednisone. Lovenox for DVT prophylaxis. NicoDerm patch in place. Continued on Diamox. The patient is seen today May 12, 2024 in follow-up on the regular medical floor. She is currently resting in bed. Awake and alert in no acute distress. She is maintaining O2 saturation in the 90s on 4 L/min per nasal cannula. She sustained another fall yesterday. She states her legs are giving out on her. CT scan of the brain revealed no acute event. 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 Ophthalmology had been consulted. X-ray of the knees revealed no evidence of fracture. White count 11.7. Hemoglobin 15.4. Glucose 97. She is continued on Symbicort, DuoNebs, prednisone taper. NicoDerm patch in place. Lovenox for DVT prophylaxis. 05/13/2024, patient is being seen for a follow-up. Doing well. No new complaints as the patient completes a prednisone burst taper and she is on DuoNebs about treatments [id number]. She is currently out of 30 mg of prednisone as part of a burst taper. She is on Lovenox for DVT prophylaxis. Nodule worsening shortness of breath. She is weak and she would like to have some more rehabilitation. White cell count is at 7 with a hemoglobin 13 and a platelet count of 99. BUN is 13 with a creatinine of 1.5. Sodium levels at 144. No new complaints otherwise for now. No significant respiratory distress. On 05/14/2024, the patient is being seen for a follow-up. The patient has a component of an acute CF exacerbation and CHF exacerbation with a mildly elevated proBNP level. She is a chronic smoker. She remains on O2 and she is currently on 4 L of O2 nasal cannula. She remains on DuoNeb nebulized treatments [id number] and she is also on prednisone burst taper starting with 30 mg p.o. daily. She is feeling better. She has improved strength compared to yesterday and she was able to get up with assistance and is current and she is currently sitting up in a chair. The white cell count is at 6.2 with a heme of 13.7 and a platelet count of 84. BUN is at 13 with a creatinine of 0.6 and a sodium levels at 143. She remains on Lovenox 40 mg subcu for DVT prophylaxis. A drop in the platelet count was noted. She remains on Diamox to 50 mg p.o. twice a day. Rest of the medications are essentially unchanged. She is on Entiat for pain control. Awake and alert and communicating. No signs of any CO2 narcosis. Denies having angina or palpitations. She feels that she can get stronger and ultimately she plans to go home. 05/15/2024, no new complaints at the patient is completing a prednisone burst taper. She remains on DuoNeb updrafts. No other changes in the medications for now. She remains on Diamox to 50 mg p.o. twice a day. Her metabolic alkalosis was improving and the serum bicarb was down to 30. Rest of the electrolytes were normal with a sodium level of 139, potassium of 4, chloride is 102, white cell count at 5.5 with a hemoglobin of 13. The patient was interested in going home. Nevertheless, based on his underlying generalized weakness, should be sent to ECF probably by tomorrow. MRI of the cervical spine was completed and showed mild to moderate disc degenerative changes involving C4-C5, C5-6 and C6- 7. No evidence of any significant spinal canal stenosis. 05/16/2024, the patient is clinically stable. No significant respiratory difficulties. No chest pain. COPD is stable. Awaiting insurance authorization for this patient to be taken to ECF for further rehabilitation. She remains on prednisone burst taper, DuoNeb updrafts and she is still on Diamox regarding metabolic alkalosis. Follow-up serum bicarb level needs to be obtained in a.m. Objective - Vital Signs Vital signs: Vital Signs Temp 98.1 F 05/16/24 07:47 Pulse 80 05/16/24 08:53 Resp 20 05/16/24 07:47 BP 131/67 05/16/24 07:47 Pulse Ox 94 L 05/16/24 07:47 FiO2 Intake & Output 05/15/24 05/16/24 05/16/24 18:59 06:59 18:59 Intake Total 838 2080 118 Balance 838 2080 118 Weight 105.5 kg Intake: Oral 838 2079 118 Other: Voiding Method Toilet Toilet Bedside Commode Bedside Commode # Voids 3 10 # Bowel Movements 1 2 - Exam GENERAL EXAM: Alert, pleasant 69-year-old obese female, resting in bed, on 3 L/min per nasal cannula, in no apparent distress. HEAD: Normocephalic and atraumatic EYES: Normal reaction of pupils, equal size. NOSE: Clear with pink turbinates. THROAT: No erythema or exudates. NECK: No masses, no JVD. CHEST: No chest wall deformity. LUNGS: Equal air entry with faint wheezing and rhonchi heard bilaterally. CVS: S1 and S2 normal with no audible murmur, regular rhythm. No extra heart sounds ABDOMEN: No hepatosplenomegaly, active bowel sounds, no guarding or rigidity. SPINE: No scoliosis or deformity SKIN: No rashes CENTRAL NERVOUS SYSTEM: No focal deficits, tone is normal in all 4 extremities. EXTREMITIES: There is no peripheral edema, clubbing, or cyanosis. Peripheral pulses are intact. - Labs CBC & Chem 7: 05/15/24 03:09 05/15/24 03:09 Assessment and Plan Plan: Acute COPD exacerbation, improved, still on Duoneb and a prednisone taper on 30 mg of prednisone Acute exacerbation of diastolic congestive heart failure; chest x-ray showing cardiomegaly and possible mild pulmonary vascular congestion. NT proBNP only mildly elevated at 581. Acute on chronic hypoxemic respiratory failure, secondary to above Chronic hypoxemic respiratory failure, normally maintained on 2 to 3 L on an outpatient basis Chronic ongoing tobacco dependence, with over [id number] history Hypertension History of GERD Morbid obesity, with BMI of 38.3 kg/m Post fall without injury 05/10/2024 and 05/11/2024 Metabolic alkalosis, improved with Diamox Generalized weakness, mild degenerative changes involving cervical spine without any cervical stenosis or impingement of the cervical spine. Plan: Awaiting insurance authorization for ECF transfer Replete electrolytes as the patient is currently on Diamox Clinically improved, MRI of the cervical spine was noted and the patient is seeking ECF Has home oxygen/breathing treatments Complete a prednisone taper Continue Lovenox and monitor the platelet count Will continue to follow.
--- NOTE | 2024-05-17 10:15 | P.PN ---
Subjective Progress Note Date: 05/17/24 Fern Nickerson, is a 69-year-old female who presented to [facility] emergency room with a chief complaint of worsening shortness of breath She was evaluated in the emergency room vital examination on presentation revealed a temperature of 98 pulse 93 respiration 26 blood pressure 134/74 pulse ox 88% on 3 L nasal cannula Laboratory data reveals a white blood count of 6.8 hemoglobin 15.1 platelet count 146 BUN 5 creatinine 0.45 Testing in the emergency room revealed EKG revealed sinus rhythm normal EKG, chest x-ray revealed cardiomegaly with pulmonary vascular congestion Patient was admitted to medical floor for further evaluation and treatment Past medical history is significant for underlying history of COPD, history of chronic hypoxic and hypercapnic respiratory failure history of asthma, history of rheumatoid arthritis, history of osteoarthritis, prolonged history of tobacco use. On review of systems patient is alert and oriented x 3 in no apparent distress she denies any fever or chills no headache or dizziness no chest pain she stated that she is having shortness of breath with any activity no palpitation no cough no sputum production no nausea or vomiting no abdominal pain no diarrhea no blood in the stools, she has frequency and urgency with urination no hematuria. On 05/07/2024 patient is alert and oriented x 3. Patient remains on azithromycin, IV Solu-Medrol and Diamox. Cardiology and pulmonary services are following. 2D echo has been ordered. Current vital signs temp 98.5, heart rate 88, respiratory rate 18, blood pressure 143/75 with a pulse ox of 90% on 4 L On 05/08/2024 patient was seen and examined on the medical floor she is alert and oriented x 3 in no apparent distress, there is no fever or chills no headache or dizziness no chest pain, she is still having severe shortness of breath with any activity, she is still complaining of cough, no palpitation no nausea or vomiting no abdominal pain no diarrhea, she is still complaining of frequency with urination. CO2 has improved from 49-36.9 patient is maintained on oral Diamox, will continue with IV Solu-Medrol and inhaled bronchodilators, will continue to follow closely. On 05/09/2024 patient was seen and examined on the medical floor she is alert and oriented x 3 in no apparent distress she is still complaining of shortness of breath with any activity she is also complaining of dizziness otherwise she denies any complaints at this time there is no fever or chills no headache no chest pain no nausea or vomiting no abdominal pain no diarrhea no urinary symptoms. On 05/10/2024 patient is alert and oriented x 3. Patient has been transitioned to p.o. prednisone. Head CT completed showing nonspecific dilated bilateral superior ophthalmic veins. At this time will consult neurology services for further recommendations. Carotid Doppler completed showing no significant juliano nosis. Current vital signs temp 98.1, heart rate 78, respiratory rate 17, blood pressure 157/81 with a pulse ox of 94% on 3 L. Patient denies chest pain or shortness of breath. Patient denies nausea vomiting or diarrhea. Patient denies any urinary burning frequency On 05/11/2024 patient was seen and examined on the medical floor she is alert and oriented x 3 in no apparent distress she had a fall last night with bilateral knee injury, currently she is complaining of bilateral knee pain she denies any other complaints there is no fever or chills no headache or dizziness no chest pain, she stated that her shortness of breath and cough has improved there is no palpitation no nausea or vomiting no fever no diarrhea and no urinary symptoms. At this time will check bilateral knee x-ray, consultation for physical therapy and Occupational Therapy were initiated. Input from neurology reviewed awaiting results on CT angiogram of the brain and MRI of the brain. Input from pulmonary reviewed, will continue to follow closely. On 05/12/2024 patient is alert and oriented x 3. Optometry consulted recommendation of developing cataract and long standing history of asthma and oral steroids follow-up outpatient. Per nursing staff patient had episode of weakness requiring to be lowered to the floor. At this time discussed with patient that she may need rehab upon discharge will consult PT OT and social work services. Patient reports improvement with shortness of breath. Patient denies nausea vomiting or diarrhea. Patient denies any urinary burning or frequency. On 05/13/2024 patient was seen and examined on the medical floor she is alert and oriented x 3 in no apparent distress she is complaining of severe weakness and had to be lowered to the floor this morning she felt that she was going to fall, otherwise she denies any complaints her cough and shortness of breath has been improving there is no fever or chills no headache or dizziness no chest pain no palpitation no nausea or vomiting no abdominal pain no diarrhea no blood in the stools no burning with urination no frequency or urgency and no hematuria. At this time possibility of medication causing her severe weakness was discussed again with the patient she is very reluctant to decrease her medication as she stated that she has been on this regimen for a prolonged time however I told her that I would try to decrease gradually the dose on the hydrocodone, gabapentin, and tizanidine. Will assess progress closely. Input from pulmonary, ophthalmology, and neurology reviewed MRI of the brain reviewed bilateral knee x-rays reviewed. On 05/14/2024 patient is alert and oriented x 3. Patient refusing rehab insisting that she will go home with help. MRI of the cervical spine has been ordered per neurology. Current vital signs temp 97.6, heart rate 71, respiratory rate 13, blood pressure 133/69 with pulse ox of 96% on 3 L patient denies chest pain or shortness of breath patient denies nausea vomiting or diarrhea. Patient denies any urinary burning or frequency. On 05/15/2024 patient was seen and examined on the medical floor, she is alert and oriented x 3 in no apparent distress , she is complaining of generalized weakness , she is still having shortness of breath with any activity otherwise she denies any complaints , there is no fever or chills no headache or dizziness no chest pain, no shortness of breath at rest she has occasional cough no nausea or vomiting no abdominal pain no diarrhea no urinary symptoms. Multiple tests reviewed, patient is receiving physical therapy and Occupational Therapy, plan for discharge in the next 24 hours, patient is still refusing to go to rehab however, she was told that the plan is for discharge in the next 24 hours, either to home with home care or to a rehab unit. On 05/16/2024 patient was seen and examined on the medical floor she is alert and oriented x 3 in no apparent distress there is no fever or chills no headache or dizziness no chest pain no shortness of breath at rest she is still having shortness of breath with activity she has occasional cough no nausea or vomiting no abdominal pain no diarrhea no blood in the stools, no burning with urination no frequency or urgency and no hematuria. At this time patient is still having severe weakness she had multiple falls before and during this admission, we are still awaiting insurance authorization for [facility] placement for rehab. On 05/17/2024 patient is alert and oriented x 3. Patient is sitting comfortably in chair. Still awaiting insurance authorization for [facility]ci placement. Per case management likely will receive in the next 1 to 2 days. Patient denies chest pain or shortness of breath. Patient denies nausea vomiting or diarrhea. Patient denies any urinary burning or frequency Objective - Vital Signs Vital signs: Vital Signs Temp 98.7 F 05/17/24 08:16 Pulse 80 05/17/24 08:56 Resp 15 05/17/24 08:18 BP 129/74 05/17/24 08:16 Pulse Ox 96 05/17/24 08:16 FiO2 Intake & Output 05/16/24 05/17/24 05/17/24 18:59 06:59 18:59 Intake Total 118 Balance 118 Weight 101.2 kg Intake: Oral 118 Other: Voiding Method Toilet Bedside Commode # Voids 3 # Bowel Movements 1 - Exam In general patient is alert and oriented x 3 in no distress HEENT head normocephalic and atraumatic Neck is supple no JVD no goiter no lymphadenopathy no carotid bruit Chest examination reveals a scattered crackles bilaterally with wheezing and prolonged expiratory phase Cardiac exam reveals regular heart sounds S1 and S2 no gallops no murmurs Abdomen is soft nontender no organomegaly with normal bowel sounds Extremity exam reveals no edema no cyanosis or clubbing Neurological examination reveals no gross focal deficits - Labs CBC & Chem 7: 05/15/24 03:09 05/15/24 03:09 Assessment and Plan Plan: Acute exacerbation of chronic obstructive pulmonary disease Acute on chronic hypoxic and hypercapnic respiratory failure Ongoing tobacco abuse patient was counseled in length regarding smoking cessation Possible congestive heart failure, with chest x-ray revealing cardiomegaly and pulmonary congestion, will check BNP and consult cardiology Underlying history of hypertension Underlying history of hyperlipidemia Underlying history of gastroesophageal reflux disease Underlying history of morbid obesity Possible obstructive sleep apnea At this time patient was seen and examined Home medications reviewed and reorderedhaled bronchodilators and inhaled steroid continued Cardiology and pulmonary consultation requested For DVT prophylaxis subcu Lovenox Patient was counseled regarding smoking cessation Will follow closely
[2024-05-17 10:19] LABS: Basophils # (A) 0.02 X 10*3/uL (0.00-0.10); Basophils % (A) 0.3 %; Eosinophils # (A) 0.02 X 10*3/uL (0.04-0.35); Eosinophils % (A) 0.3 %; HCT 42.7 % (37.2-46.3); HGB 12.9 g/dL (12.0-15.0); Lymphocytes # (A) 1.63 X 10*3/uL (0.90-5.00); Lymphocytes % (A) 26.5 %; MCH 31.9 pg (27.0-32.0); MCHC 30.2 g/dL (32.0-37.0); MCV 105.7 FL (80.0-97.0); Mean Platelet Volume 11.6 FL (9.5-12.2); Monocytes # (A) 0.51 X 10*3/uL (0.20-1.00); Monocytes % (A) 8.3 %; NRBC Per 100 WBC 0 X 10*3/uL (0.00-0.01); Neutrophils # (A) 3.92 X 10*3/uL (1.80-7.70); Neutrophils % (A) 63.9 %; Platelet Count 112 X 10*3/uL (140-440); RBC 4.04 X 10*6/uL (4.10-5.20); RDW 12.5 % (11.5-14.5); WBC 6.14 X 10*3/uL (4.50-10.00)
[2024-05-17 10:46] LABS: ALT 23 U/L (8-44); AST 17 U/L (13-35); Albumin 3.4 g/dL (3.8-4.9); Albumin/Globulin Ratio 1.89 Ratio (1.60-3.17); Alkaline Phosphatase 65 U/L (41-126); Blood Urea Nitrogen 11.4 mg/dL (9.0-27.0); Calcium 8.4 mg/dL (8.7-10.3); Carbon Dioxide 32.1 mmol/L (21.6-31.8); Chloride 102 mmol/L (96-109); Globulin 1.8 g/dL (1.6-3.3); Glucose 106 mg/dL (70-110); Potassium 4.3 mmol/L (3.5-5.5); Sodium 139 mmol/L (135-145); Total Bilirubin 0.3 mg/dL (0.3-1.2); Total Protein 5.2 g/dL (6.2-8.2)
[2024-05-17] MEDS: ZINC OXIDE PASTE (Z-GUARD) 1 APPLIC TOPICAL PRN (11:31)
--- NOTE | 2024-05-17 14:16 | P.PN ---
Subjective Progress Note Date: 05/17/24 Patient is a 69-year-old white female with past medical history significant for asthma/COPD, current everyday smoker, GERD. Her primary care provider is Dr. Jovel. She does have history of oxygen dependent COPD. Previously followed with Dr. Renate Lopez, but not currently following with any typing secretary. She is normally maintained on 2 to 3 L of nasal cannula 20/02. She is being evaluated in the emergency department. She is sitting up in the bedside recliner. Alert and oriented. She is resting comfortably on 3 L/min nasal cannula. No signs of CO2 narcosis. She feels that her asthma/COPD is active. Over the last 3 days she has had progressively worsening shortness of breath. Denies fevers. Denies URI-like symptoms. She has a congested cough which is mostly nonproductive. Denies chest pain. Denies hemoptysis. She continues to smoke approximately 1/2 pack/day. Viral screen negative for COVID, influenza, RSV. Denies sick contacts. Chest x-ray showing cardiomegaly and possible mild pulmonary vascular congestion. NT proBNP was only 581. She was initiated on Lasix 40 mg twice daily in the emergency department. Troponin less than 0.012. EKG: Normal sinus rhythm, 90 bpm, no acute ischemic changes. Denies chest pain or increased lower extremity swelling. Endorses orthopnea. CBC: WBC count 6.8, hemoglobin 15.1, hematocrit 49.4, platelets 146. CMP: Sodium 137, potassium 4.5, chloride 94, serum bicarb 41, BUN 5, creatinine 0.45, glucose 110. Lactic 0.9. LFTs unremarkable. Hemodynamics are fairly stable. Blood pressure hypertensive. The patient is seen today May 07, 2024 in follow-up on the regular medical floor. She is awake and alert in no acute distress. Maintaining good O2 saturation in the 90s on 2 L/min per nasal cannula. She has been afebrile. He modynamically stable. Procalcitonin negative at 0.05. Antibiotics discontinued. Continued on DuoNebs, Pulmicort, Singulair Solu-Medrol. NicoDerm patch in place. The patient is seen today May 08, 2024 in follow-up on the regular medical floor. She is currently sitting up in a chair at the bedside. Awake and alert in no acute distress. Maintaining good O2 saturations in the 90s on 2 L/min per nasal cannula. She is continued on DuoNeb and elations, Pulmicort inhalations, Solu-Medrol. NicoDerm patch in place. Lovenox for DVT prophylaxis. White count 5.1. Hemoglobin 15.0. Platelets 114. Sodium 137. Potassium 4.5. Bicarb 37. BUN 18. Creatinine 0.6. Glucose 168. The patient is seen today May 09, 2024 in follow-up on the regular medical floor. She is currently sitting up in a chair at the bedside. Awake and alert in no acute distress. She is maintaining O2 saturations in the 90s on 3 L/min per nasal cannula.. She is afebrile. Hemodynamically stable. White count 8.4. Hemoglobin 17.4. Platelets 155. Sodium 138. Potassium 4.9. Bicarb 38. BUN 19. Creatinine 0.8. Glucose 124. She remains on DuoNeb inhalations, Pulmicort inhalations, Solu-Medrol. NicoDerm patch in place. Lovenox for DVT prophylaxis. The patient is seen today May 10, 2024 in follow-up on the regular medical floor. She is currently resting comfortably in bed. Awake and alert in no acute distress. Maintaining good O2 saturations in the 90s on 2 L/min per nasal cannula. Carotid Dopplers revealed no significant stenosis. Blood culture revealed no growth. White count 6.6. Hemoglobin 15.3. Platelets 112. Sodium 138. Potassium 4.6. Bicarb 38. BUN 21. Creatinine 0.8. Glucose 133. She remains on DuoNeb inhalations, Symbicort, Singulair, Solu-Medrol. Lovenox for DVT prophylaxis. NicoDerm patch in place. Continued on Diamox. The patient is seen today May 11, 2024 in follow-up on the regular medical floor. She is currently sitting up in a chair. Awake and alert in no acute distress. Maintaining O2 saturations in the 90s on 4 L/min per nasal cannula. She states she did have a fall last evening. This was witnessed by the nurse captain assistant and the patient legs gave out from under her while ambulating to the bathroom and she landed on her buttocks and rolled onto her back. Denies any significant injury. Head CT angiogram and CT angiography revealed no acute process. White count 7.2. Hemoglobin 15.7. Platelets 109. Sodium 146. Potassium 4.6. Bicarb 39. BUN 20. Creatinine 0.6. Glucose 93. She remains on DuoNeb inhalations, Symbicort, Singulair, prednisone. Lovenox for DVT prophylaxis. NicoDerm patch in place. Continued on Diamox. The patient is seen today May 12, 2024 in follow-up on the regular medical floor. She is currently resting in bed. Awake and alert in no acute distress. She is maintaining O2 saturation in the 90s on 4 L/min per nasal cannula. She sustained another fall yesterday. She states her legs are giving out on her. CT scan of the brain revealed no acute event. 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 Ophthalmology had been consulted. X-ray of the knees revealed no evidence of fracture. White count 11.7. Hemoglobin 15.4. Glucose 97. She is continued on Symbicort, DuoNebs, prednisone taper. NicoDerm patch in place. Lovenox for DVT prophylaxis. 05/13/2024, patient is being seen for a follow-up. Doing well. No new complaints as the patient completes a prednisone burst taper and she is on DuoNebs about treatments [id number]. She is currently out of 30 mg of prednisone as part of a burst taper. She is on Lovenox for DVT prophylaxis. Nodule worsening shortness of breath. She is weak and she would like to have some more rehabilitation. White cell count is at 7 with a hemoglobin 13 and a platelet count of 99. BUN is 13 with a creatinine of 1.5. Sodium levels at 144. No new complaints otherwise for now. No significant respiratory distress. On 05/14/2024, the patient is being seen for a follow-up. The patient has a component of an acute CF exacerbation and CHF exacerbation with a mildly elevated proBNP level. She is a chronic smoker. She remains on O2 and she is currently on 4 L of O2 nasal cannula. She remains on DuoNeb nebulized treatments [id number] and she is also on prednisone burst taper starting with 30 mg p.o. daily. She is feeling better. She has improved strength compared to yesterday and she was able to get up with assistance and is current and she is currently sitting up in a chair. The white cell count is at 6.2 with a heme of 13.7 and a platelet count of 84. BUN is at 13 with a creatinine of 0.6 and a sodium levels at 143. She remains on Lovenox 40 mg subcu for DVT prophylaxis. A drop in the platelet count was noted. She remains on Diamox to 50 mg p.o. twice a day. Rest of the medications are essentially unchanged. She is on Benkelman for pain control. Awake and alert and communicating. No signs of any CO2 narcosis. Denies having angina or palpitations. She feels that she can get stronger and ultimately she plans to go home. 05/15/2024, no new complaints at the patient is completing a prednisone burst taper. She remains on DuoNeb updrafts. No other changes in the medications for now. She remains on Diamox to 50 mg p.o. twice a day. Her metabolic alkalosis was improving and the serum bicarb was down to 30. Rest of the electrolytes were normal with a sodium level of 139, potassium of 4, chloride is 102, white cell count at 5.5 with a hemoglobin of 13. The patient was interested in going home. Nevertheless, based on his underlying generalized weakness, should be sent to ECF probably by tomorrow. MRI of the cervical spine was completed and showed mild to moderate disc degenerative changes involving C4-C5, C5-6 and C6- 7. No evidence of any significant spinal canal stenosis. 05/16/2024, the patient is clinically stable. No significant respiratory difficulties. No chest pain. COPD is stable. Awaiting insurance authorization for this patient to be taken to ECF for further rehabilitation. She remains on prednisone burst taper, DuoNeb updrafts and she is still on Diamox regarding metabolic alkalosis. Follow-up serum bicarb level needs to be obtained in a.m. On 05/17/2024, the patient is overall respiratory status is stable. The patient denies having any worsening shortness of breath. She is weak and she is awaiting ECF placement. Respiratory test remained stable and the patient's pulse ox remains 94% on 3 L of oxygen by nasal cannula. Authorization for ECF transfer to be obtained. White cell count is at 6 with a hemoglobin 12.9 and h emoglobin has remained stable with a platelet count of 112 which is improving. BUN is 11 with a creatinine 0.6 and a sodium levels at 139. No other significant events overnight. Objective - Vital Signs Vital signs: Vital Signs Temp 98.7 F 05/17/24 08:16 Pulse 80 05/17/24 08:56 Resp 15 05/17/24 08:18 BP 129/74 05/17/24 08:16 Pulse Ox 96 05/17/24 08:16 FiO2 Intake & Output 05/16/24 05/17/24 05/17/24 18:59 06:59 18:59 Intake Total 118 Balance 118 Weight 101.2 kg Intake: Oral 118 Other: Voiding Method Toilet Bedside Commode # Voids 3 # Bowel Movements 1 - Exam GENERAL EXAM: Alert, pleasant 69-year-old obese female, resting in bed, on 3 L/min per nasal cannula, in no apparent distress. HEAD: Normocephalic and atraumatic EYES: Normal reaction of pupils, equal size. NOSE: Clear with pink turbinates. THROAT: No erythema or exudates. NECK: No masses, no JVD. CHEST: No chest wall deformity. LUNGS: Equal air entry with faint wheezing and rhonchi heard bilaterally. CVS: S1 and S2 normal with no audible murmur, regular rhythm. No extra heart sounds ABDOMEN: No hepatosplenomegaly, active bowel sounds, no guarding or rigidity. SPINE: No scoliosis or deformity SKIN: No rashes CENTRAL NERVOUS SYSTEM: No focal deficits, tone is normal in all 4 extremities. EXTREMITIES: There is no peripheral edema, clubbing, or cyanosis. Peripheral pulses are intact. - Labs CBC & Chem 7: 05/17/24 02:59 05/17/24 02:59 Labs: Abnormal Lab Results - Last 24 Hours (Table) 05/17/24 05/17/24 Range/Units 02:59 02:59 RBC 4.04 L (4.10-5.20) X 10*6/uL MCV 105.7 H (80.0-97.0) FL MCHC 30.2 L (32.0-37.0) g/dL Plt Count 112 L (140-440) X 10*3/uL Eosinophils # 0.02 L (0.04-0.35) X 10*3/uL Carbon Dioxide 32.1 H (21.6-31.8) mmol/L Calcium 8.4 L (8.7-10.3) mg/dL Total Protein 5.2 L (6.2-8.2) g/dL Albumin 3.4 L (3.8-4.9) g/dL Assessment and Plan Plan: Acute COPD exacerbation, improved, still on Duoneb and a prednisone taper on 30 mg of prednisone Acute exacerbation of diastolic congestive heart failure; chest x-ray showing cardiomegaly and possible mild pulmonary vascular congestion. NT proBNP only mildly elevated at 581. Acute on chronic hypoxemic respiratory failure, secondary to above Chronic hypoxemic respiratory failure, normally maintained on 2 to 3 L on an outpatient basis Chronic ongoing tobacco dependence, with over [id number] history Hypertension History of GERD Morbid obesity, with BMI of 38.3 kg/m Post fall without injury 05/10/2024 and 05/11/2024 Metabolic alkalosis, improved with Diamox Generalized weakness, mild degenerative changes involving cervical spine without any cervical stenosis or impingement of the cervical spine. Plan: Awaiting insurance authorization for ECF transfer, this will likely occur today or within the next 24 hours Serum bicarb is stable at 32 and the Diamox can be discontinued Clinically improved, MRI of the cervical spine was noted and the patient is seeking ECF Has home oxygen/breathing treatments Complete a prednisone taper Continue Lovenox and monitor the platelet count Will continue to follow.
[2024-05-18 10:24] LABS: Basophils # (A) 0.03 X 10*3/uL (0.00-0.10); Basophils % (A) 0.4 %; Eosinophils # (A) 0.03 X 10*3/uL (0.04-0.35); Eosinophils % (A) 0.4 %; HCT 43.8 % (37.2-46.3); HGB 13.4 g/dL (12.0-15.0); Lymphocytes # (A) 1.96 X 10*3/uL (0.90-5.00); Lymphocytes % (A) 27.7 %; MCH 31.8 pg (27.0-32.0); MCHC 30.6 g/dL (32.0-37.0); Mean Platelet Volume 11.1 FL (9.5-12.2); Monocytes # (A) 0.53 X 10*3/uL (0.20-1.00); Monocytes % (A) 7.5 %; NRBC Per 100 WBC 0 X 10*3/uL (0.00-0.01); Neutrophils # (A) 4.48 X 10*3/uL (1.80-7.70); Neutrophils % (A) 63.3 %; Platelet Count 141 X 10*3/uL (140-440); RBC 4.21 X 10*6/uL (4.10-5.20); RDW 12.4 % (11.5-14.5); WBC 7.08 X 10*3/uL (4.50-10.00)
[2024-05-18 10:34] LABS: ALT 24 U/L (8-44); AST 18 U/L (13-35); Albumin 3.5 g/dL (3.8-4.9); Albumin/Globulin Ratio 2.06 Ratio (1.60-3.17); Alkaline Phosphatase 69 U/L (41-126); Blood Urea Nitrogen 12.9 mg/dL (9.0-27.0); Calcium 8.8 mg/dL (8.7-10.3); Carbon Dioxide 32.4 mmol/L (21.6-31.8); Chloride 102 mmol/L (96-109); Globulin 1.7 g/dL (1.6-3.3); Glucose 108 mg/dL (70-110); Potassium 5.2 mmol/L (3.5-5.5); Sodium 141 mmol/L (135-145); Total Bilirubin 0.3 mg/dL (0.3-1.2); Total Protein 5.2 g/dL (6.2-8.2)
--- NOTE | 2024-05-18 14:16 | P.PN ---
Subjective Progress Note Date: 05/18/24 Fern Nickerson, is a 69-year-old female who presented to [facility] emergency room with a chief complaint of worsening shortness of breath She was evaluated in the emergency room vital examination on presentation revealed a temperature of 98 pulse 93 respiration 26 blood pressure 134/74 pulse ox 88% on 3 L nasal cannula Laboratory data reveals a white blood count of 6.8 hemoglobin 15.1 platelet count 146 BUN 5 creatinine 0.45 Testing in the emergency room revealed EKG revealed sinus rhythm normal EKG, chest x-ray revealed cardiomegaly with pulmonary vascular congestion Patient was admitted to medical floor for further evaluation and treatment Past medical history is significant for underlying history of COPD, history of chronic hypoxic and hypercapnic respiratory failure history of asthma, history of rheumatoid arthritis, history of osteoarthritis, prolonged history of tobacco use. On review of systems patient is alert and oriented x 3 in no apparent distress she denies any fever or chills no headache or dizziness no chest pain she stated that she is having shortness of breath with any activity no palpitation no cough no sputum production no nausea or vomiting no abdominal pain no diarrhea no blood in the stools, she has frequency and urgency with urination no hematuria. On 05/07/2024 patient is alert and oriented x 3. Patient remains on azithromycin, IV Solu-Medrol and Diamox. Cardiology and pulmonary services are following. 2D echo has been ordered. Current vital signs temp 98.5, heart rate 88, respiratory rate 18, blood pressure 143/75 with a pulse ox of 90% on 4 L On 05/08/2024 patient was seen and examined on the medical floor she is alert and oriented x 3 in no apparent distress, there is no fever or chills no headache or dizziness no chest pain, she is still having severe shortness of breath with any activity, she is still complaining of cough, no palpitation no nausea or vomiting no abdominal pain no diarrhea, she is still complaining of frequency with urination. CO2 has improved from 49-36.9 patient is maintained on oral Diamox, will continue with IV Solu-Medrol and inhaled bronchodilators, will continue to follow closely. On 05/09/2024 patient was seen and examined on the medical floor she is alert and oriented x 3 in no apparent distress she is still complaining of shortness of breath with any activity she is also complaining of dizziness otherwise she denies any complaints at this time there is no fever or chills no headache no chest pain no nausea or vomiting no abdominal pain no diarrhea no urinary symptoms. On 05/10/2024 patient is alert and oriented x 3. Patient has been transitioned to p.o. prednisone. Head CT completed showing nonspecific dilated bilateral superior ophthalmic veins. At this time will consult neurology services for further recommendations. Carotid Doppler completed showing no significant juliano nosis. Current vital signs temp 98.1, heart rate 78, respiratory rate 17, blood pressure 157/81 with a pulse ox of 94% on 3 L. Patient denies chest pain or shortness of breath. Patient denies nausea vomiting or diarrhea. Patient denies any urinary burning frequency On 05/11/2024 patient was seen and examined on the medical floor she is alert and oriented x 3 in no apparent distress she had a fall last night with bilateral knee injury, currently she is complaining of bilateral knee pain she denies any other complaints there is no fever or chills no headache or dizziness no chest pain, she stated that her shortness of breath and cough has improved there is no palpitation no nausea or vomiting no fever no diarrhea and no urinary symptoms. At this time will check bilateral knee x-ray, consultation for physical therapy and Occupational Therapy were initiated. Input from neurology reviewed awaiting results on CT angiogram of the brain and MRI of the brain. Input from pulmonary reviewed, will continue to follow closely. On 05/12/2024 patient is alert and oriented x 3. Optometry consulted recommendation of developing cataract and long standing history of asthma and oral steroids follow-up outpatient. Per nursing staff patient had episode of weakness requiring to be lowered to the floor. At this time discussed with patient that she may need rehab upon discharge will consult PT OT and social work services. Patient reports improvement with shortness of breath. Patient denies nausea vomiting or diarrhea. Patient denies any urinary burning or frequency. On 05/13/2024 patient was seen and examined on the medical floor she is alert and oriented x 3 in no apparent distress she is complaining of severe weakness and had to be lowered to the floor this morning she felt that she was going to fall, otherwise she denies any complaints her cough and shortness of breath has been improving there is no fever or chills no headache or dizziness no chest pain no palpitation no nausea or vomiting no abdominal pain no diarrhea no blood in the stools no burning with urination no frequency or urgency and no hematuria. At this time possibility of medication causing her severe weakness was discussed again with the patient she is very reluctant to decrease her medication as she stated that she has been on this regimen for a prolonged time however I told her that I would try to decrease gradually the dose on the hydrocodone, gabapentin, and tizanidine. Will assess progress closely. Input from pulmonary, ophthalmology, and neurology reviewed MRI of the brain reviewed bilateral knee x-rays reviewed. On 05/14/2024 patient is alert and oriented x 3. Patient refusing rehab insisting that she will go home with help. MRI of the cervical spine has been ordered per neurology. Current vital signs temp 97.6, heart rate 71, respiratory rate 13, blood pressure 133/69 with pulse ox of 96% on 3 L patient denies chest pain or shortness of breath patient denies nausea vomiting or diarrhea. Patient denies any urinary burning or frequency. On 05/15/2024 patient was seen and examined on the medical floor, she is alert and oriented x 3 in no apparent distress , she is complaining of generalized weakness , she is still having shortness of breath with any activity otherwise she denies any complaints , there is no fever or chills no headache or dizziness no chest pain, no shortness of breath at rest she has occasional cough no nausea or vomiting no abdominal pain no diarrhea no urinary symptoms. Multiple tests reviewed, patient is receiving physical therapy and Occupational Therapy, plan for discharge in the next 24 hours, patient is still refusing to go to rehab however, she was told that the plan is for discharge in the next 24 hours, either to home with home care or to a rehab unit. On 05/16/2024 patient was seen and examined on the medical floor she is alert and oriented x 3 in no apparent distress there is no fever or chills no headache or dizziness no chest pain no shortness of breath at rest she is still having shortness of breath with activity she has occasional cough no nausea or vomiting no abdominal pain no diarrhea no blood in the stools, no burning with urination no frequency or urgency and no hematuria. At this time patient is still having severe weakness she had multiple falls before and during this admission, we are still awaiting insurance authorization for [facility] placement for rehab. On 05/17/2024 patient is alert and oriented x 3. Patient is sitting comfortably in chair. Still awaiting insurance authorization for [facility] placement. Per case management likely will receive in the next 1 to 2 days. Patient denies chest pain or shortness of breath. Patient denies nausea vomiting or diarrhea. Patient denies any urinary burning or frequency On 05/18/2024 patient was seen and examined on the medical floor she is alert and oriented x 3 in no apparent distress there is no fever or chills no headache or dizziness no chest pain no shortness of breath no cough no nausea or vomiting no abdominal pain no diarrhea and no urinary symptoms she is still complaining of generalized weakness, we are waiting for insurance authorization for rehab placement. Objective - Vital Signs Vital signs: Vital Signs Temp 98.4 F 05/18/24 06:49 Pulse 80 05/18/24 11:46 Resp 17 05/18/24 06:49 BP 118/68 05/18/24 06:49 Pulse Ox 95 05/18/24 09:22 FiO2 Intake & Output 05/17/24 05/18/24 05/18/24 18:59 06:59 18:59 Weight 101.2 kg Other: Voiding Method Toilet # Voids 1 5 1 - Exam In general patient is alert and oriented x 3 in no distress HEENT head normocephalic and atraumatic Neck is supple no JVD no goiter no lymphadenopathy no carotid bruit Chest examination reveals a scattered crackles bilaterally with wheezing and prolonged expiratory phase Cardiac exam reveals regular heart sounds S1 and S2 no gallops no murmurs Abdomen is soft nontender no organomegaly with normal bowel sounds Extremity exam reveals no edema no cyanosis or clubbing Neurological examination reveals no gross focal deficits - Labs CBC & Chem 7: 05/18/24 03:53 05/18/24 03:53 Labs: Abnormal Lab Results - Last 24 Hours (Table) 05/15/24 05/18/24 05/18/24 Range/Units 11:29 03:53 03:53 MCV 104.0 H (80.0-97.0) FL MCHC 30.6 L (32.0-37.0) g/dL Immature Gran # 0.05 H (0.00-0.04) X 10*3/uL Eosinophils # 0.03 L (0.04-0.35) X 10*3/uL Carbon Dioxide 32.4 H (21.6-31.8) mmol/L BUN/Creatinine Ratio 21.50 H (12.00-20.00) Ratio Total Protein 5.2 L (6.2-8.2) g/dL Albumin 3.5 L (3.8-4.9) g/dL Vitamin B6 3 L (5-50) ug/L Assessment and Plan Plan: Acute exacerbation of chronic obstructive pulmonary disease Acute on chronic hypoxic and hypercapnic respiratory failure Ongoing tobacco abuse patient was counseled in length regarding smoking cessation Possible congestive heart failure, with chest x-ray revealing cardiomegaly and pulmonary congestion, will check BNP and consult cardiology Underlying history of hypertension Underlying history of hyperlipidemia Underlying history of gastroesophageal reflux disease Underlying history of morbid obesity Possible obstructive sleep apnea At this time patient was seen and examined Home medications reviewed and reorderedhaled bronchodilators and inhaled steroid continued Cardiology and pulmonary consultation requested For DVT prophylaxis subcu Lovenox Patient was counseled regarding smoking cessation Will follow closely
--- NOTE | 2024-05-18 16:06 | P.PN ---
Subjective Progress Note Date: 05/18/24 Patient is a 69-year-old white female with past medical history significant for asthma/COPD, current everyday smoker, GERD. Her primary care provider is Dr. Jovel. She does have history of oxygen dependent COPD. Previously followed with Dr. Renate Lopez, but not currently following with any portrait photographer. She is normally maintained on 2 to 3 L of nasal cannula 20/02. She is being evaluated in the emergency department. She is sitting up in the bedside recliner. Alert and oriented. She is resting comfortably on 3 L/min nasal cannula. No signs of CO2 narcosis. She feels that her asthma/COPD is active. Over the last 3 days she has had progressively worsening shortness of breath. Denies fevers. Denies URI-like symptoms. She has a congested cough which is mostly nonproductive. Denies chest pain. Denies hemoptysis. She continues to smoke approximately 1/2 pack/day. Viral screen negative for COVID, influenza, RSV. Denies sick contacts. Chest x-ray showing cardiomegaly and possible mild pulmonary vascular congestion. NT proBNP was only 581. She was initiated on Lasix 40 mg twice daily in the emergency department. Troponin less than 0.012. EKG: Normal sinus rhythm, 90 bpm, no acute ischemic changes. Denies chest pain or increased lower extremity swelling. Endorses orthopnea. CBC: WBC count 6.8, hemoglobin 15.1, hematocrit 49.4, platelets 146. CMP: Sodium 137, potassium 4.5, chloride 94, serum bicarb 41, BUN 5, creatinine 0.45, glucose 110. Lactic 0.9. LFTs unremarkable. Hemodynamics are fairly stable. Blood pressure hypertensive. The patient is seen today May 07, 2024 in follow-up on the regular medical floor. She is awake and alert in no acute distress. Maintaining good O2 saturation in the 90s on 2 L/min per nasal cannula. She has been afebrile. He modynamically stable. Procalcitonin negative at 0.05. Antibiotics discontinued. Continued on DuoNebs, Pulmicort, Singulair Solu-Medrol. NicoDerm patch in place. The patient is seen today May 08, 2024 in follow-up on the regular medical floor. She is currently sitting up in a chair at the bedside. Awake and alert in no acute distress. Maintaining good O2 saturations in the 90s on 2 L/min per nasal cannula. She is continued on DuoNeb and elations, Pulmicort inhalations, Solu-Medrol. NicoDerm patch in place. Lovenox for DVT prophylaxis. White count 5.1. Hemoglobin 15.0. Platelets 114. Sodium 137. Potassium 4.5. Bicarb 37. BUN 18. Creatinine 0.6. Glucose 168. The patient is seen today May 09, 2024 in follow-up on the regular medical floor. She is currently sitting up in a chair at the bedside. Awake and alert in no acute distress. She is maintaining O2 saturations in the 90s on 3 L/min per nasal cannula.. She is afebrile. Hemodynamically stable. White count 8.4. Hemoglobin 17.4. Platelets 155. Sodium 138. Potassium 4.9. Bicarb 38. BUN 19. Creatinine 0.8. Glucose 124. She remains on DuoNeb inhalations, Pulmicort inhalations, Solu-Medrol. NicoDerm patch in place. Lovenox for DVT prophylaxis. The patient is seen today May 10, 2024 in follow-up on the regular medical floor. She is currently resting comfortably in bed. Awake and alert in no acute distress. Maintaining good O2 saturations in the 90s on 2 L/min per nasal cannula. Carotid Dopplers revealed no significant stenosis. Blood culture revealed no growth. White count 6.6. Hemoglobin 15.3. Platelets 112. Sodium 138. Potassium 4.6. Bicarb 38. BUN 21. Creatinine 0.8. Glucose 133. She remains on DuoNeb inhalations, Symbicort, Singulair, Solu-Medrol. Lovenox for DVT prophylaxis. NicoDerm patch in place. Continued on Diamox. The patient is seen today May 11, 2024 in follow-up on the regular medical floor. She is currently sitting up in a chair. Awake and alert in no acute distress. Maintaining O2 saturations in the 90s on 4 L/min per nasal cannula. She states she did have a fall last evening. This was witnessed by the nurse laboratory assistant and the patient legs gave out from under her while ambulating to the bathroom and she landed on her buttocks and rolled onto her back. Denies any significant injury. Head CT angiogram and CT angiography revealed no acute process. White count 7.2. Hemoglobin 15.7. Platelets 109. Sodium 146. Potassium 4.6. Bicarb 39. BUN 20. Creatinine 0.6. Glucose 93. She remains on DuoNeb inhalations, Symbicort, Singulair, prednisone. Lovenox for DVT prophylaxis. NicoDerm patch in place. Continued on Diamox. The patient is seen today May 12, 2024 in follow-up on the regular medical floor. She is currently resting in bed. Awake and alert in no acute distress. She is maintaining O2 saturation in the 90s on 4 L/min per nasal cannula. She sustained another fall yesterday. She states her legs are giving out on her. CT scan of the brain revealed no acute event. 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 Ophthalmology had been consulted. X-ray of the knees revealed no evidence of fracture. White count 11.7. Hemoglobin 15.4. Glucose 97. She is continued on Symbicort, DuoNebs, prednisone taper. NicoDerm patch in place. Lovenox for DVT prophylaxis. 05/13/2024, patient is being seen for a follow-up. Doing well. No new complaints as the patient completes a prednisone burst taper and she is on DuoNebs about treatments [id number]. She is currently out of 30 mg of prednisone as part of a burst taper. She is on Lovenox for DVT prophylaxis. Nodule worsening shortness of breath. She is weak and she would like to have some more rehabilitation. White cell count is at 7 with a hemoglobin 13 and a platelet count of 99. BUN is 13 with a creatinine of 1.5. Sodium levels at 144. No new complaints otherwise for now. No significant respiratory distress. On 05/14/2024, the patient is being seen for a follow-up. The patient has a component of an acute CF exacerbation and CHF exacerbation with a mildly elevated proBNP level. She is a chronic smoker. She remains on O2 and she is currently on 4 L of O2 nasal cannula. She remains on DuoNeb nebulized treatments [id number] and she is also on prednisone burst taper starting with 30 mg p.o. daily. She is feeling better. She has improved strength compared to yesterday and she was able to get up with assistance and is current and she is currently sitting up in a chair. The white cell count is at 6.2 with a heme of 13.7 and a platelet count of 84. BUN is at 13 with a creatinine of 0.6 and a sodium levels at 143. She remains on Lovenox 40 mg subcu for DVT prophylaxis. A drop in the platelet count was noted. She remains on Diamox to 50 mg p.o. twice a day. Rest of the medications are essentially unchanged. She is on [place] for pain control. Awake and alert and communicating. No signs of any CO2 narcosis. Denies having angina or palpitations. She feels that she can get stronger and ultimately she plans to go home. 05/15/2024, no new complaints at the patient is completing a prednisone burst taper. She remains on DuoNeb updrafts. No other changes in the medications for now. She remains on Diamox to 50 mg p.o. twice a day. Her metabolic alkalosis was improving and the serum bicarb was down to 30. Rest of the electrolytes were normal with a sodium level of 139, potassium of 4, chloride is 102, white cell count at 5.5 with a hemoglobin of 13. The patient was interested in going home. Nevertheless, based on his underlying generalized weakness, should be sent to ECF probably by tomorrow. MRI of the cervical spine was completed and showed mild to moderate disc degenerative changes involving C4-C5, C5-6 and C6- 7. No evidence of any significant spinal canal stenosis. 05/16/2024, the patient is clinically stable. No significant respiratory difficulties. No chest pain. COPD is stable. Awaiting insurance authorization for this patient to be taken to ECF for further rehabilitation. She remains on prednisone burst taper, DuoNeb updrafts and she is still on Diamox regarding metabolic alkalosis. Follow-up serum bicarb level needs to be obtained in a.m. On 05/17/2024, the patient is overall respiratory status is stable. The patient denies having any worsening shortness of breath. She is weak and she is awaiting ECF placement. Respiratory test remained stable and the patient's pulse ox remains 94% on 3 L of oxygen by nasal cannula. Authorization for ECF transfer to be obtained. White cell count is at 6 with a hemoglobin 12.9 and h emoglobin has remained stable with a platelet count of 112 which is improving. BUN is 11 with a creatinine 0.6 and a sodium levels at 139. No other significant events overnight. On 05/18/2024, no new complaints the patient is still awaiting her rehabilitation placement. Respiratory status remained stable and the patient remains on 3 Suboxone by nasal cannula. She is completing a prednisone burst taper. Medication remains unchanged. Remains on bronchodilators. The white cell count is at 7 with hemoglobin 13.4 and the rest of the electrolytes are all within normal limits. BUN is at 12 with a creatinine of 0.6. Objective - Vital Signs Vital signs: Vital Signs Temp 98.4 F 05/18/24 06:49 Pulse 78 05/18/24 09:22 Resp 17 05/18/24 06:49 BP 118/68 05/18/24 06:49 Pulse Ox 95 05/18/24 09:22 FiO2 Intake & Output 05/17/24 05/18/24 05/18/24 18:59 06:59 18:59 Weight 101.2 kg Other: Voiding Method Toilet # Voids 1 5 1 - Exam GENERAL EXAM: Alert, pleasant 69-year-old obese female, resting in bed, on 3 L/min per nasal cannula, in no apparent distress. HEAD: Normocephalic and atraumatic EYES: Normal reaction of pupils, equal size. NOSE: Clear with pink turbinates. THROAT: No erythema or exudates. NECK: No masses, no JVD. CHEST: No chest wall deformity. LUNGS: Equal air entry with faint wheezing and rhonchi heard bilaterally. CVS: S1 and S2 normal with no audible murmur, regular rhythm. No extra heart sounds ABDOMEN: No hepatosplenomegaly, active bowel sounds, no guarding or rigidity. SPINE: No scoliosis or deformity SKIN: No rashes CENTRAL NERVOUS SYSTEM: No focal deficits, tone is normal in all 4 extremities. EXTREMITIES: There is no peripheral edema, clubbing, or cyanosis. Peripheral pulses are intact. - Labs CBC & Chem 7: 05/18/24 03:53 05/18/24 03:53 Labs: Abnormal Lab Results - Last 24 Hours (Table) 05/15/24 05/18/24 05/18/24 Range/Units 11:29 03:53 03:53 MCV 104.0 H (80.0-97.0) FL MCHC 30.6 L (32.0-37.0) g/dL Immature Gran # 0.05 H (0.00-0.04) X 10*3/uL Eosinophils # 0.03 L (0.04-0.35) X 10*3/uL Carbon Dioxide 32.4 H (21.6-31.8) mmol/L BUN/Creatinine Ratio 21.50 H (12.00-20.00) Ratio Total Protein 5.2 L (6.2-8.2) g/dL Albumin 3.5 L (3.8-4.9) g/dL Vitamin B6 3 L (5-50) ug/L Assessment and Plan Plan: Acute COPD exacerbation, improved, still on Duoneb and a prednisone taper on 30 mg of prednisone Acute exacerbation of diastolic congestive heart failure; chest x-ray showing cardiomegaly and possible mild pulmonary vascular congestion. NT proBNP only mildly elevated at 581. Acute on chronic hypoxemic respiratory failure, secondary to above Chronic hypoxemic respiratory failure, normally maintained on 2 to 3 L on an outpatient basis Chronic ongoing tobacco dependence, with over [id number] history Hypertension History of GERD Morbid obesity, with BMI of 38.3 kg/m Post fall without injury 05/10/2024 and 05/11/2024 Metabolic alkalosis, improved with Diamox Generalized weakness, mild degenerative changes involving cervical spine without any cervical stenosis or impingement of the cervical spine. Plan: Awaiting insurance authorization for ECF transfer, this will likely occur today or within the next 24 hours Serum bicarb is stable at 32 and the Diamox can be discontinued Clinically improved, MRI of the cervical spine was noted and the patient is seeking ECF Has home oxygen/breathing treatments Complete a prednisone taper Continue Lovenox and monitor the platelet count Will continue to follow.
[2024-05-18] MEDS: PYRIDOXINE 50 MG TAB PO SCH (16:13)
--- NOTE | 2024-05-19 10:09 | P.PN ---
Subjective Progress Note Date: 05/19/24 Fern Nickerson, is a 69-year-old female who presented to [facility] emergency room with a chief complaint of worsening shortness of breath She was evaluated in the emergency room vital examination on presentation revealed a temperature of 98 pulse 93 respiration 26 blood pressure 134/74 pulse ox 88% on 3 L nasal cannula Laboratory data reveals a white blood count of 6.8 hemoglobin 15.1 platelet count 146 BUN 5 creatinine 0.45 Testing in the emergency room revealed EKG revealed sinus rhythm normal EKG, chest x-ray revealed cardiomegaly with pulmonary vascular congestion Patient was admitted to medical floor for further evaluation and treatment Past medical history is significant for underlying history of COPD, history of chronic hypoxic and hypercapnic respiratory failure history of asthma, history of rheumatoid arthritis, history of osteoarthritis, prolonged history of tobacco use. On review of systems patient is alert and oriented x 3 in no apparent distress she denies any fever or chills no headache or dizziness no chest pain she stated that she is having shortness of breath with any activity no palpitation no cough no sputum production no nausea or vomiting no abdominal pain no diarrhea no blood in the stools, she has frequency and urgency with urination no hematuria. On 05/07/2024 patient is alert and oriented x 3. Patient remains on azithromycin, IV Solu-Medrol and Diamox. Cardiology and pulmonary services are following. 2D echo has been ordered. Current vital signs temp 98.5, heart rate 88, respiratory rate 18, blood pressure 143/75 with a pulse ox of 90% on 4 L On 05/08/2024 patient was seen and examined on the medical floor she is alert and oriented x 3 in no apparent distress, there is no fever or chills no headache or dizziness no chest pain, she is still having severe shortness of breath with any activity, she is still complaining of cough, no palpitation no nausea or vomiting no abdominal pain no diarrhea, she is still complaining of frequency with urination. CO2 has improved from 49-36.9 patient is maintained on oral Diamox, will continue with IV Solu-Medrol and inhaled bronchodilators, will continue to follow closely. On 05/09/2024 patient was seen and examined on the medical floor she is alert and oriented x 3 in no apparent distress she is still complaining of shortness of breath with any activity she is also complaining of dizziness otherwise she denies any complaints at this time there is no fever or chills no headache no chest pain no nausea or vomiting no abdominal pain no diarrhea no urinary symptoms. On 05/10/2024 patient is alert and oriented x 3. Patient has been transitioned to p.o. prednisone. Head CT completed showing nonspecific dilated bilateral superior ophthalmic veins. At this time will consult neurology services for further recommendations. Carotid Doppler completed showing no significant juliano nosis. Current vital signs temp 98.1, heart rate 78, respiratory rate 17, blood pressure 157/81 with a pulse ox of 94% on 3 L. Patient denies chest pain or shortness of breath. Patient denies nausea vomiting or diarrhea. Patient denies any urinary burning frequency On 05/11/2024 patient was seen and examined on the medical floor she is alert and oriented x 3 in no apparent distress she had a fall last night with bilateral knee injury, currently she is complaining of bilateral knee pain she denies any other complaints there is no fever or chills no headache or dizziness no chest pain, she stated that her shortness of breath and cough has improved there is no palpitation no nausea or vomiting no fever no diarrhea and no urinary symptoms. At this time will check bilateral knee x-ray, consultation for physical therapy and Occupational Therapy were initiated. Input from neurology reviewed awaiting results on CT angiogram of the brain and MRI of the brain. Input from pulmonary reviewed, will continue to follow closely. On 05/12/2024 patient is alert and oriented x 3. Optometry consulted recommendation of developing cataract and long standing history of asthma and oral steroids follow-up outpatient. Per nursing staff patient had episode of weakness requiring to be lowered to the floor. At this time discussed with patient that she may need rehab upon discharge will consult PT OT and social work services. Patient reports improvement with shortness of breath. Patient denies nausea vomiting or diarrhea. Patient denies any urinary burning or frequency. On 05/13/2024 patient was seen and examined on the medical floor she is alert and oriented x 3 in no apparent distress she is complaining of severe weakness and had to be lowered to the floor this morning she felt that she was going to fall, otherwise she denies any complaints her cough and shortness of breath has been improving there is no fever or chills no headache or dizziness no chest pain no palpitation no nausea or vomiting no abdominal pain no diarrhea no blood in the stools no burning with urination no frequency or urgency and no hematuria. At this time possibility of medication causing her severe weakness was discussed again with the patient she is very reluctant to decrease her medication as she stated that she has been on this regimen for a prolonged time however I told her that I would try to decrease gradually the dose on the hydrocodone, gabapentin, and tizanidine. Will assess progress closely. Input from pulmonary, ophthalmology, and neurology reviewed MRI of the brain reviewed bilateral knee x-rays reviewed. On 05/14/2024 patient is alert and oriented x 3. Patient refusing rehab insisting that she will go home with help. MRI of the cervical spine has been ordered per neurology. Current vital signs temp 97.6, heart rate 71, respiratory rate 13, blood pressure 133/69 with pulse ox of 96% on 3 L patient denies chest pain or shortness of breath patient denies nausea vomiting or diarrhea. Patient denies any urinary burning or frequency. On 05/15/2024 patient was seen and examined on the medical floor, she is alert and oriented x 3 in no apparent distress , she is complaining of generalized weakness , she is still having shortness of breath with any activity otherwise she denies any complaints , there is no fever or chills no headache or dizziness no chest pain, no shortness of breath at rest she has occasional cough no nausea or vomiting no abdominal pain no diarrhea no urinary symptoms. Multiple tests reviewed, patient is receiving physical therapy and Occupational Therapy, plan for discharge in the next 24 hours, patient is still refusing to go to rehab however, she was told that the plan is for discharge in the next 24 hours, either to home with home care or to a rehab unit. On 05/16/2024 patient was seen and examined on the medical floor she is alert and oriented x 3 in no apparent distress there is no fever or chills no headache or dizziness no chest pain no shortness of breath at rest she is still having shortness of breath with activity she has occasional cough no nausea or vomiting no abdominal pain no diarrhea no blood in the stools, no burning with urination no frequency or urgency and no hematuria. At this time patient is still having severe weakness she had multiple falls before and during this admission, we are still awaiting insurance authorization for correction placement for rehab. On 05/17/2024 patient is alert and oriented x 3. Patient is sitting comfortably in chair. Still awaiting insurance authorization for correction placement. Per case management likely will receive in the next 1 to 2 days. Patient denies chest pain or shortness of breath. Patient denies nausea vomiting or diarrhea. Patient denies any urinary burning or frequency On 05/18/2024 patient was seen and examined on the medical floor she is alert and oriented x 3 in no apparent distress there is no fever or chills no headache or dizziness no chest pain no shortness of breath no cough no nausea or vomiting no abdominal pain no diarrhea and no urinary symptoms she is still complaining of generalized weakness, we are waiting for insurance authorization for rehab placement. On 05/19/2024 patient is alert and oriented x 3 still awaiting insurance in regards to ECF placement. Patient denies chest pain or shortness of breath. Patient denies nausea vomiting or diarrhea. Patient denies any urinary burning or frequency. Vital signs temp 97.9, heart rate 79, respiratory rate 17, blood pressure 127/67 with a pulse ox of 93% on 2 L Objective - Vital Signs Vital signs: Vital Signs Temp 97.9 F 05/19/24 06:59 Pulse 80 05/19/24 08:25 Resp 17 05/19/24 06:59 BP 127/67 05/19/24 06:59 Pulse Ox 93 L 05/19/24 06:59 FiO2 Intake & Output 05/18/24 05/19/24 05/19/24 18:59 06:59 18:59 Weight 101 kg Other: Voiding Method Toilet # Voids 1 1 - Exam In general patient is alert and oriented x 3 in no distress HEENT head normocephalic and atraumatic Neck is supple no JVD no goiter no lymphadenopathy no carotid bruit Chest examination reveals a scattered crackles bilaterally with wheezing and prolonged expiratory phase Cardiac exam reveals regular heart sounds S1 and S2 no gallops no murmurs Abdomen is soft nontender no organomegaly with normal bowel sounds Extremity exam reveals no edema no cyanosis or clubbing Neurological examination reveals no gross focal deficits - Labs CBC & Chem 7: 05/18/24 03:53 05/18/24 03:53 Labs: Abnormal Lab Results - Last 24 Hours (Table) 10/19/24 10/19/24 Range/Units 03:53 03:53 MCV 104.0 H (80.0-97.0) FL MCHC 30.6 L (32.0-37.0) g/dL Immature Gran # 0.05 H (0.00-0.04) X 10*3/uL Eosinophils # 0.03 L (0.04-0.35) X 10*3/uL Carbon Dioxide 32.4 H (21.6-31.8) mmol/L BUN/Creatinine Ratio 21.50 H (12.00-20.00) Ratio Total Protein 5.2 L (6.2-8.2) g/dL Albumin 3.5 L (3.8-4.9) g/dL Assessment and Plan Plan: Acute exacerbation of chronic obstructive pulmonary disease Acute on chronic hypoxic and hypercapnic respiratory failure Ongoing tobacco abuse patient was counseled in length regarding smoking cessation Possible congestive heart failure, with chest x-ray revealing cardiomegaly and pulmonary congestion, will check BNP and consult cardiology Underlying history of hypertension Underlying history of hyperlipidemia Underlying history of gastroesophageal reflux disease Underlying history of morbid obesity Possible obstructive sleep apnea At this time patient was seen and examined Home medications reviewed and reorderedhaled bronchodilators and inhaled steroid continued Cardiology and pulmonary consultation requested For DVT prophylaxis subcu Lovenox Patient was counseled regarding smoking cessation Will follow closely
--- NOTE | 2024-05-19 13:36 | P.PN ---
Subjective Progress Note Date: 05/19/24 Patient is a 69-year-old white female with past medical history significant for asthma/COPD, current everyday smoker, GERD. Her primary care provider is Dr. Jovel. She does have history of oxygen dependent COPD. Previously followed with Dr. Renate Lopez, but not currently following with any insurance agency manager. She is normally maintained on 2 to 3 L of nasal cannula 20/02. She is being evaluated in the emergency department. She is sitting up in the bedside recliner. Alert and oriented. She is resting comfortably on 3 L/min nasal cannula. No signs of CO2 narcosis. She feels that her asthma/COPD is active. Over the last 3 days she has had progressively worsening shortness of breath. Denies fevers. Denies URI-like symptoms. She has a congested cough which is mostly nonproductive. Denies chest pain. Denies hemoptysis. She continues to smoke approximately 1/2 pack/day. Viral screen negative for COVID, influenza, RSV. Denies sick contacts. Chest x-ray showing cardiomegaly and possible mild pulmonary vascular congestion. NT proBNP was only 581. She was initiated on Lasix 40 mg twice daily in the emergency department. Troponin less than 0.012. EKG: Normal sinus rhythm, 90 bpm, no acute ischemic changes. Denies chest pain or increased lower extremity swelling. Endorses orthopnea. CBC: WBC count 6.8, hemoglobin 15.1, hematocrit 49.4, platelets 146. CMP: Sodium 137, potassium 4.5, chloride 94, serum bicarb 41, BUN 5, creatinine 0.45, glucose 110. Lactic 0.9. LFTs unremarkable. Hemodynamics are fairly stable. Blood pressure hypertensive. The patient is seen today May 07, 2024 in follow-up on the regular medical floor. She is awake and alert in no acute distress. Maintaining good O2 saturation in the 90s on 2 L/min per nasal cannula. She has been afebrile. He modynamically stable. Procalcitonin negative at 0.05. Antibiotics discontinued. Continued on DuoNebs, Pulmicort, Singulair Solu-Medrol. NicoDerm patch in place. The patient is seen today May 08, 2024 in follow-up on the regular medical floor. She is currently sitting up in a chair at the bedside. Awake and alert in no acute distress. Maintaining good O2 saturations in the 90s on 2 L/min per nasal cannula. She is continued on DuoNeb and elations, Pulmicort inhalations, Solu-Medrol. NicoDerm patch in place. Lovenox for DVT prophylaxis. White count 5.1. Hemoglobin 15.0. Platelets 114. Sodium 137. Potassium 4.5. Bicarb 37. BUN 18. Creatinine 0.6. Glucose 168. The patient is seen today May 09, 2024 in follow-up on the regular medical floor. She is currently sitting up in a chair at the bedside. Awake and alert in no acute distress. She is maintaining O2 saturations in the 90s on 3 L/min per nasal cannula.. She is afebrile. Hemodynamically stable. White count 8.4. Hemoglobin 17.4. Platelets 155. Sodium 138. Potassium 4.9. Bicarb 38. BUN 19. Creatinine 0.8. Glucose 124. She remains on DuoNeb inhalations, Pulmicort inhalations, Solu-Medrol. NicoDerm patch in place. Lovenox for DVT prophylaxis. The patient is seen today May 10, 2024 in follow-up on the regular medical floor. She is currently resting comfortably in bed. Awake and alert in no acute distress. Maintaining good O2 saturations in the 90s on 2 L/min per nasal cannula. Carotid Dopplers revealed no significant stenosis. Blood culture revealed no growth. White count 6.6. Hemoglobin 15.3. Platelets 112. Sodium 138. Potassium 4.6. Bicarb 38. BUN 21. Creatinine 0.8. Glucose 133. She remains on DuoNeb inhalations, Symbicort, Singulair, Solu-Medrol. Lovenox for DVT prophylaxis. NicoDerm patch in place. Continued on Diamox. The patient is seen today May 11, 2024 in follow-up on the regular medical floor. She is currently sitting up in a chair. Awake and alert in no acute distress. Maintaining O2 saturations in the 90s on 4 L/min per nasal cannula. She states she did have a fall last evening. This was witnessed by the nurse bakery assistant and the patient legs gave out from under her while ambulating to the bathroom and she landed on her buttocks and rolled onto her back. Denies any significant injury. Head CT angiogram and CT angiography revealed no acute process. White count 7.2. Hemoglobin 15.7. Platelets 109. Sodium 146. Potassium 4.6. Bicarb 39. BUN 20. Creatinine 0.6. Glucose 93. She remains on DuoNeb inhalations, Symbicort, Singulair, prednisone. Lovenox for DVT prophylaxis. NicoDerm patch in place. Continued on Diamox. The patient is seen today May 12, 2024 in follow-up on the regular medical floor. She is currently resting in bed. Awake and alert in no acute distress. She is maintaining O2 saturation in the 90s on 4 L/min per nasal cannula. She sustained another fall yesterday. She states her legs are giving out on her. CT scan of the brain revealed no acute event. 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 Ophthalmology had been consulted. X-ray of the knees revealed no evidence of fracture. White count 11.7. Hemoglobin 15.4. Glucose 97. She is continued on Symbicort, DuoNebs, prednisone taper. NicoDerm patch in place. Lovenox for DVT prophylaxis. 05/13/2024, patient is being seen for a follow-up. Doing well. No new complaints as the patient completes a prednisone burst taper and she is on DuoNebs about treatments [id number]. She is currently out of 30 mg of prednisone as part of a burst taper. She is on Lovenox for DVT prophylaxis. Nodule worsening shortness of breath. She is weak and she would like to have some more rehabilitation. White cell count is at 7 with a hemoglobin 13 and a platelet count of 99. BUN is 13 with a creatinine of 1.5. Sodium levels at 144. No new complaints otherwise for now. No significant respiratory distress. On 05/14/2024, the patient is being seen for a follow-up. The patient has a component of an acute CF exacerbation and CHF exacerbation with a mildly elevated proBNP level. She is a chronic smoker. She remains on O2 and she is currently on 4 L of O2 nasal cannula. She remains on DuoNeb nebulized treatments [id number] and she is also on prednisone burst taper starting with 30 mg p.o. daily. She is feeling better. She has improved strength compared to yesterday and she was able to get up with assistance and is current and she is currently sitting up in a chair. The white cell count is at 6.2 with a heme of 13.7 and a platelet count of 84. BUN is at 13 with a creatinine of 0.6 and a sodium levels at 143. She remains on Lovenox 40 mg subcu for DVT prophylaxis. A drop in the platelet count was noted. She remains on Diamox to 50 mg p.o. twice a day. Rest of the medications are essentially unchanged. She is on [place] for pain control. Awake and alert and communicating. No signs of any CO2 narcosis. Denies having angina or palpitations. She feels that she can get stronger and ultimately she plans to go home. 05/15/2024, no new complaints at the patient is completing a prednisone burst taper. She remains on DuoNeb updrafts. No other changes in the medications for now. She remains on Diamox to 50 mg p.o. twice a day. Her metabolic alkalosis was improving and the serum bicarb was down to 30. Rest of the electrolytes were normal with a sodium level of 139, potassium of 4, chloride is 102, white cell count at 5.5 with a hemoglobin of 13. The patient was interested in going home. Nevertheless, based on his underlying generalized weakness, should be sent to ECF probably by tomorrow. MRI of the cervical spine was completed and showed mild to moderate disc degenerative changes involving C4-C5, C5-6 and C6- 7. No evidence of any significant spinal canal stenosis. 05/16/2024, the patient is clinically stable. No significant respiratory difficulties. No chest pain. COPD is stable. Awaiting insurance authorization for this patient to be taken to ECF for further rehabilitation. She remains on prednisone burst taper, DuoNeb updrafts and she is still on Diamox regarding metabolic alkalosis. Follow-up serum bicarb level needs to be obtained in a.m. On 05/17/2024, the patient is overall respiratory status is stable. The patient denies having any worsening shortness of breath. She is weak and she is awaiting ECF placement. Respiratory test remained stable and the patient's pulse ox remains 94% on 3 L of oxygen by nasal cannula. Authorization for ECF transfer to be obtained. White cell count is at 6 with a hemoglobin 12.9 and h emoglobin has remained stable with a platelet count of 112 which is improving. BUN is 11 with a creatinine 0.6 and a sodium levels at 139. No other significant events overnight. On 05/18/2024, no new complaints the patient is still awaiting her rehabilitation placement. Respiratory status remained stable and the patient remains on 3 Suboxone by nasal cannula. She is completing a prednisone burst taper. Medication remains unchanged. Remains on bronchodilators. The white cell count is at 7 with hemoglobin 13.4 and the rest of the electrolytes are all within normal limits. BUN is at 12 with a creatinine of 0.6. 05/19/2024, the patient is resting comfortably in bed. No new complaints. Awaiting discharge to [facility]. Clinically stable. Hemodynamically stable. Remains on 2 L of oxygen by nasal cannula. No new labs from today. Objective - Vital Signs Vital signs: Vital Signs Temp 97.9 F 05/19/24 06:59 Pulse 80 05/19/24 08:25 Resp 17 05/19/24 06:59 BP 127/67 05/19/24 06:59 Pulse Ox 93 L 05/19/24 06:59 FiO2 Intake & Output 05/18/24 05/19/24 05/19/24 18:59 06:59 18:59 Weight 101 kg Other: Voiding Method Toilet # Voids 1 1 - Exam GENERAL EXAM: Alert, pleasant 69-year-old obese female, resting in bed, on 3 L/min per nasal cannula, in no apparent distress. HEAD: Normocephalic and atraumatic EYES: Normal reaction of pupils, equal size. NOSE: Clear with pink turbinates. THROAT: No erythema or exudates. NECK: No masses, no JVD. CHEST: No chest wall deformity. LUNGS: Equal air entry with faint wheezing and rhonchi heard bilaterally. CVS: S1 and S2 normal with no audible murmur, regular rhythm. No extra heart sounds ABDOMEN: No hepatosplenomegaly, active bowel sounds, no guarding or rigidity. SPINE: No scoliosis or deformity SKIN: No rashes CENTRAL NERVOUS SYSTEM: No focal deficits, tone is normal in all 4 extremities. EXTREMITIES: There is no peripheral edema, clubbing, or cyanosis. Peripheral pulses are intact. - Labs CBC & Chem 7: 05/18/24 03:53 05/18/24 03:53 Labs: Abnormal Lab Results - Last 24 Hours (Table) 05/18/24 05/18/24 Range/Units 03:53 03:53 MCV 104.0 H (80.0-97.0) FL MCHC 30.6 L (32.0-37.0) g/dL Immature Gran # 0.05 H (0.00-0.04) X 10*3/uL Eosinophils # 0.03 L (0.04-0.35) X 10*3/uL Carbon Dioxide 32.4 H (21.6-31.8) mmol/L BUN/Creatinine Ratio 21.50 H (12.00-20.00) Ratio Total Protein 5.2 L (6.2-8.2) g/dL Albumin 3.5 L (3.8-4.9) g/dL Assessment and Plan Plan: Acute COPD exacerbation, improved, still on Duoneb and a prednisone taper on 30 mg of prednisone Acute exacerbation of diastolic congestive heart failure; chest x-ray showing cardiomegaly and possible mild pulmonary vascular congestion. NT proBNP only mildly elevated at 581. Acute on chronic hypoxemic respiratory failure, secondary to above Chronic hypoxemic respiratory failure, normally maintained on 2 to 3 L on an outpatient basis Chronic ongoing tobacco dependence, with over [id number] history Hypertension History of GERD Morbid obesity, with BMI of 38.3 kg/m Post fall without injury 05/10/2024 and 05/11/2024 Metabolic alkalosis, improved with Diamox Generalized weakness, mild degenerative changes involving cervical spine without any cervical stenosis or impingement of the cervical spine. Plan: Clinically unchanged Awaiting insurance authorization for ECF transfer, this will likely occur today or within the next 24 hours Serum bicarb is stable at 32 and the Diamox can be discontinued Clinically improved, MRI of the cervical spine was noted and the patient is seeking ECF Has home oxygen/breathing treatments Complete a prednisone taper Continue Lovenox and monitor the platelet count Pulmonary will sign off the case.
[2024-05-20 08:34] LABS: Basophils # (A) 0.03 X 10*3/uL (0.00-0.10); Basophils % (A) 0.4 %; Eosinophils # (A) 0.03 X 10*3/uL (0.04-0.35); Eosinophils % (A) 0.4 %; Lymphocytes # (A) 1.76 X 10*3/uL (0.90-5.00); Lymphocytes % (A) 22.3 %; MCH 31.9 pg (27.0-32.0); MCV 103.2 FL (80.0-97.0); Mean Platelet Volume 10.6 FL (9.5-12.2); Monocytes % (A) 6.3 %; NRBC Per 100 WBC 0 X 10*3/uL (0.00-0.01); Neutrophils # (A) 5.49 X 10*3/uL (1.80-7.70); Neutrophils % (A) 69.7 %; Platelet Count 152 X 10*3/uL (140-440); RBC 4.07 X 10*6/uL (4.10-5.20); RDW 12.5 % (11.5-14.5); WBC 7.88 X 10*3/uL (4.50-10.00)
[2024-05-20 10:46] LABS: ALT 30 U/L (8-44); AST 15 U/L (13-35); Albumin 3.5 g/dL (3.8-4.9); Albumin/Globulin Ratio 2.06 Ratio (1.60-3.17); Alkaline Phosphatase 84 U/L (41-126); Blood Urea Nitrogen 11.1 mg/dL (9.0-27.0); Calcium 8.4 mg/dL (8.7-10.3); Carbon Dioxide 29.5 mmol/L (21.6-31.8); Chloride 101 mmol/L (96-109); Globulin 1.7 g/dL (1.6-3.3); Glucose 107 mg/dL (70-110); Potassium 4.3 mmol/L (3.5-5.5); Sodium 140 mmol/L (135-145); Total Bilirubin <0.2 mg/dL (0.3-1.2); Total Protein 5.2 g/dL (6.2-8.2)
--- NOTE | 2024-05-20 13:31 | P.DS ---
Providers Date of admission: 05/05/24 17:37 Expected date of discharge: 05/20/24 Attending physician: Dano Jovel Consults: 05/05/24 17:35 Consult Physician Routine Consulting Provider: Sunny Neri Consult Reason/Comments: copd Do you want consulting provider notified?: Yes 05/10/24 09:32 Consult Physician Routine Consulting Provider: Chad Irizarry Consult Reason/Comments: abdnorma headl CT Do you want consulting provider notified?: Yes 05/11/24 12:35 Consult Physician Routine Consulting Provider: Carlos A iKmble Consult Reason/Comments: dilated ophthalamic vein with visual disturbance Do you want consulting provider notified?: Yes 05/14/24 10:10 Consult Physician Routine Consulting Provider: Hetal Raymond Consult Reason/Comments: Possible rehab admission Do you want consulting provider notified?: Yes Primary care physician: Dano Jovel [facility] Course: Diagnosis on discharge: Acute exacerbation of chronic obstructive pulmonary disease Acute on chronic hypoxic and hypercapnic respiratory failure Ongoing tobacco abuse patient was counseled in length regarding smoking cessation Possible congestive heart failure, with chest x-ray revealing cardiomegaly and pulmonary congestion, will check BNP and consult cardiology Underlying history of hypertension Underlying history of hyperlipidemia Underlying history of gastroesophageal reflux disease Underlying history of morbid obesity Possible obstructive sleep apnea Hospital course: Fern Nickerson, is a 69-year-old female who presented to [facility] emergency room with a chief complaint of worsening shortness of breath She was evaluated in the emergency room vital examination on presentation revealed a temperature of 98 pulse 93 respiration 26 blood pressure 134/74 pulse ox 88% on 3 L nasal cannula Laboratory data reveals a white blood count of 6.8 hemoglobin 15.1 platelet count 146 BUN 5 creatinine 0.45 Testing in the emergency room revealed EKG revealed sinus rhythm normal EKG, chest x-ray revealed cardiomegaly with pulmonary vascular congestion Patient was admitted to medical floor for further evaluation and treatment Past medical history is significant for underlying history of COPD, history of chronic hypoxic and hypercapnic respiratory failure history of asthma, history of rheumatoid arthritis, history of osteoarthritis, prolonged history of tobacco use. On review of systems patient is alert and oriented x 3 in no apparent distress she denies any fever or chills no headache or dizziness no chest pain she stated that she is having shortness of breath with any activity no palpitation no cough no sputum production no nausea or vomiting no abdominal pain no diarrhea no blood in the stools, she has frequency and urgency with urination no hematuria. On 05/07/2024 patient is alert and oriented x 3. Patient remains on azithromycin, IV Solu-Medrol and Diamox. Cardiology and pulmonary services are following. 2D echo has been ordered. Current vital signs temp 98.5, heart rate 88, respiratory rate 18, blood pressure 143/75 with a pulse ox of 90% on 4 L On 05/08/2024 patient was seen and examined on the medical floor she is alert and oriented x 3 in no apparent distress, there is no fever or chills no headache or dizziness no chest pain, she is still having severe shortness of breath with any activity, she is still complaining of cough, no palpitation no nausea or vomiting no abdominal pain no diarrhea, she is still complaining of frequency with urination. CO2 has improved from 49-36.9 patient is maintained on oral Diamox, will continue with IV Solu-Medrol and inhaled bronchodilators, will continue to follow closely. On 05/09/2024 patient was seen and examined on the medical floor she is alert and oriented x 3 in no apparent distress she is still complaining of shortness of breath with any activity she is also complaining of dizziness otherwise she denies any complaints at this time there is no fever or chills no headache no chest pain no nausea or vomiting no abdominal pain no diarrhea no urinary symptoms. On 05/10/2024 patient is alert and oriented x 3. Patient has been transitioned to p.o. prednisone. Head CT completed showing nonspecific dilated bilateral superior ophthalmic veins. At this time will consult neurology services for further recommendations. Carotid Doppler completed showing no significant stenosis. Current vital signs temp 98.1, heart rate 78, respiratory rate 17, blood pressure 157/81 with a pulse ox of 94% on 3 L. Patient denies chest pain or shortness of breath. Patient denies nausea vomiting or diarrhea. Patient denies any urinary burning frequency On 05/11/2024 patient was seen and examined on the medical floor she is alert an d oriented x 3 in no apparent distress she had a fall last night with bilateral knee injury, currently she is complaining of bilateral knee pain she denies any other complaints there is no fever or chills no headache or dizziness no chest pain, she stated that her shortness of breath and cough has improved there is no palpitation no nausea or vomiting no fever no diarrhea and no urinary symptoms. At this time will check bilateral knee x-ray, consultation for physical therapy and Occupational Therapy were initiated. Input from neurology reviewed awaiting results on CT angiogram of the brain and MRI of the brain. Input from pulmonary reviewed, will continue to follow closely. On 05/12/2024 patient is alert and oriented x 3. Optometry consulted recommendation of developing cataract and long standing history of asthma and oral steroids follow-up outpatient. Per nursing staff patient had episode of weakness requiring to be lowered to the floor. At this time discussed with patient that she may need rehab upon discharge will consult PT OT and social work services. Patient reports improvement with shortness of breath. Patient denies nausea vomiting or diarrhea. Patient denies any urinary burning or frequency. On 05/13/2024 patient was seen and examined on the medical floor she is alert and oriented x 3 in no apparent distress she is complaining of severe weakness and had to be lowered to the floor this morning she felt that she was going to fall, otherwise she denies any complaints her cough and shortness of breath has been improving there is no fever or chills no headache or dizziness no chest pain no palpitation no nausea or vomiting no abdominal pain no diarrhea no blood in the stools no burning with urination no frequency or urgency and no hematuria. At this time possibility of medication causing her severe weakness was discussed again with the patient she is very reluctant to decrease her medication as she stated that she has been on this regimen for a prolonged time however I told her that I would try to decrease gradually the dose on the hydrocodone, gabapentin, and tizanidine. Will assess progress closely. Input from pulmonary, ophthalmology, and neurology reviewed MRI of the brain reviewed bilateral knee x-rays reviewed. On 05/14/2024 patient is alert and oriented x 3. Patient refusing rehab insisting that she will go home with help. MRI of the cervical spine has been ordered per neurology. Current vital signs temp 97.6, heart rate 71, respiratory rate 13, blood pressure 133/69 with pulse ox of 96% on 3 L patient denies chest pain or shortness of breath patient denies nausea vomiting or diarrhea. Patient denies any urinary burning or frequency. On 05/15/2024 patient was seen and examined on the medical floor, she is alert and oriented x 3 in no apparent distress , she is complaining of generalized weakness , she is still having shortness of breath with any activity otherwise she denies any complaints , there is no fever or chills no headache or dizziness no chest pain, no shortness of breath at rest she has occasional cough no nausea or vomiting no abdominal pain no diarrhea no urinary symptoms. Multiple tests reviewed, patient is receiving physical therapy and Occupational Therapy, plan for discharge in the next 24 hours, patient is still refusing to go to rehab however, she was told that the plan is for discharge in the next 24 hours, either to home with home care or to a rehab unit. On 05/16/2024 patient was seen and examined on the medical floor she is alert and oriented x 3 in no apparent distress there is no fever or chills no headache or dizziness no chest pain no shortness of breath at rest she is still having shortness of breath with activity she has occasional cough no nausea or vomiting no abdominal pain no diarrhea no blood in the stools, no burning with urination no frequency or urgency and no hematuria. At this time patient is still having severe weakness she had multiple falls before and during this admission, we are still awaiting insurance authorization for shelter placement for rehab. On 05/17/2024 patient is alert and oriented x 3. Patient is sitting comfortably in chair. Still awaiting insurance authorization for shelter placement. Per case management likely will receive in the next 1 to 2 days. Patient denies chest pain or shortness of breath. Patient denies nausea vomiting or diarrhea. Patient denies any urinary burning or frequency On 05/18/2024 patient was seen and examined on the medical floor she is alert and oriented x 3 in no apparent distress there is no fever or chills no headache or dizziness no chest pain no shortness of breath no cough no nausea or vomiting no abdominal pain no diarrhea and no urinary symptoms she is still complaining of generalized weakness, we are waiting for insurance authorization for rehab placement. On 05/19/2024 patient is alert and oriented x 3 still awaiting insurance in regards to ECF placement. Patient denies chest pain or shortness of breath. Patient denies nausea vomiting or diarrhea. Patient denies any urinary burning or frequency. Vital signs temp 97.9, heart rate 79, respiratory rate 17, blood pressure 127/67 with a pulse ox of 93% on 2 L. On 05/20/2024 patient was seen and examined on the medical floor she is alert and oriented x 3 in no apparent distress she reports improvement in her cough and shortness of breath she reports improvement in her weakness she is able to ambulate in her hospital room. At this time patient is refusing to go to a rehab unit she wants to be discharged home with home care she has improved significantly over the last 2 to 3 days. Patient will be discharged to home she will be followed in our office in 3 to 4 days for further evaluation and treatment Patient Condition at Discharge: Serious Plan - Discharge Summary Discharge Rx Participant: Yes New Discharge Prescriptions: New Artificial Tears-Hypromellose [Artificial Tear Drops] 1 drops BOTH EYES QID PRN ml PRN Reason: Dry Eye(S) Acetaminophen Tab [Tylenol] 650 mg PO Q6HR PRN tab PRN Reason: Fever And/ Or Pain Cyanocobalamin [Vitamin B-12] 1,000 mcg PO DAILY tab acetaZOLAMIDE [Diamox] 250 mg PO BID tab Folic Acid 1 mg PO DAILY tab Nicotine 21Mg/24Hr Patch [Habitrol] 1 patch TRANSDERM DAILY patch Gabapentin [Neurontin] 200 mg PO TID cap HYDROcodone/APAP 7.5-325MG [Mon[place] 7.5-325] 1 each PO Q8HR PRN tab PRN Reason: Pain predniSONE 5 mg PO DAILY 12 Days #30 tab Pyridoxine [Vitamin B-6] 150 mg PO TID tab Continue Latanoprost [Latanoprost 0.005%] 1 drop BOTH EYES HS Budesonide [Pulmicort] 0.5 mg INHALATION RT-BID Escitalopram [Lexapro] 10 mg PO HS Ipratropium-Albuterol Nebulize [Duoneb 0.5 mg-3 mg/3 ml Soln] 3 ml INHALATION RT-TID Ergocalciferol (Vitamin D2) [Drisdol (50,000 Iu)] 1,250 mcg PO Q7D Albuterol Sulfate [Albuterol Sulfate Hfa] 2 puff PO RT-QID PRN PRN Reason: Shortness Of Breath Omeprazole [PriLOSEC] 20 mg PO BID Montelukast [Singulair] 10 mg PO HS Discontinued Gabapentin [Neurontin] 300 mg PO TID tiZANidine HCL 8 mg PO BID Temazepam [Restoril] 15 mg PO HS HYDROcodone/APAP 10-325MG [Monroe 10-325] 1 tab PO TID Discharge Medication List Albuterol Sulfate [Albuterol Sulfate Hfa] 2 puff PO RT-QID PRN 05/05/24 [History] Budesonide [Pulmicort] 0.5 mg INHALATION RT-BID 05/05/24 [History] Ergocalciferol (Vitamin D2) [Drisdol (50,000 Iu)] 1,250 mcg PO Q7D 05/05/24 [History] Escitalopram [Lexapro] 10 mg PO HS 05/05/24 [History] Ipratropium-Albuterol Nebulize [Duoneb 0.5 mg-3 mg/3 ml Soln] 3 ml INHALATION RT-TID 05/05/24 [History] Latanoprost [Latanoprost 0.005%] 1 drop BOTH EYES HS 05/05/24 [History] Montelukast [Singulair] 10 mg PO HS 05/05/24 [History] Omeprazole [PriLOSEC] 20 mg PO BID 05/05/24 [History] Acetaminophen Tab [Tylenol] 650 mg PO Q6HR PRN tab 05/20/24 [Rx] Artificial Tears-Hypromellose [Artificial Tear Drops] 1 drops BOTH EYES QID PRN ml 05/20/24 [Rx] Cyanocobalamin [Vitamin B-12] 1,000 mcg PO DAILY tab 05/20/24 [Rx] Folic Acid 1 mg PO DAILY tab 05/20/24 [Rx] Gabapentin [Neurontin] 200 mg PO TID cap 05/20/24 [Rx] HYDROcodone/APAP 7.5-325MG [Mon[place] 7.5-325] 1 each PO Q8HR PRN tab 05/20/24 [Rx] Nicotine 21Mg/24Hr Patch [Habitrol] 1 patch TRANSDERM DAILY patch 05/20/24 [Rx] Pyridoxine [Vitamin B-6] 150 mg PO TID tab 05/20/24 [Rx] acetaZOLAMIDE [Diamox] 250 mg PO BID tab 05/20/24 [Rx] predniSONE 5 mg PO DAILY 12 Days #30 tab 05/20/24 [Rx] Follow up Appointment(s)/Referral(s): Sixto Wharton MD [Medical Doctor] - 1 Week Aging,[facility] [NON-STAFF] - As Needed (Call to see if they have a shower chair for you to use. ) [facility] [place] [NON-STAFF] - As Needed ([facility] will call you to schedule your in home nursing and home health aide visits. ) Dano Jovel MD [Primary Care Provider] - 1-[address],[place] [NON-STAFF] - As Needed (Call to see if they have a shower chair for you to use. ) [facility], [NON-STAFF] - 1-2 Days ([facility] will call to set up appointment for home care and aide. any questions please call agency. )
[2024-05-20 15:05] VITALS: BP 122/69; PULSE 91; RESP 18; TEMP 98.8
--- NOTE | 2024-05-20 15:06 | P.PN ---
Subjective Progress Note Date: 05/20/24 Patient is a 69-year-old white female with past medical history significant for asthma/COPD, current everyday smoker, GERD. Her primary care provider is Dr. Jovel. She does have history of oxygen dependent COPD. Previously followed with Dr. Renate Lopez, but not currently following with any assembly department supervisor. She is normally maintained on 2 to 3 L of nasal cannula 20/02. She is being evaluated in the emergency department. She is sitting up in the bedside recliner. Alert and oriented. She is resting comfortably on 3 L/min nasal cannula. No signs of CO2 narcosis. She feels that her asthma/COPD is active. Over the last 3 days she has had progressively worsening shortness of breath. Denies fevers. Denies URI-like symptoms. She has a congested cough which is mostly nonproductive. Denies chest pain. Denies hemoptysis. She continues to smoke approximately 1/2 pack/day. Viral screen negative for COVID, influenza, RSV. Denies sick contacts. Chest x-ray showing cardiomegaly and possible mild pulmonary vascular congestion. NT proBNP was only 581. She was initiated on Lasix 40 mg twice daily in the emergency department. Troponin less than 0.012. EKG: Normal sinus rhythm, 90 bpm, no acute ischemic changes. Denies chest pain or increased lower extremity swelling. Endorses orthopnea. CBC: WBC count 6.8, hemoglobin 15.1, hematocrit 49.4, platelets 146. CMP: Sodium 137, potassium 4 .5, chloride 94, serum bicarb 41, BUN 5, creatinine 0.45, glucose 110. Lactic 0.9. LFTs unremarkable. Hemodynamics are fairly stable. Blood pressure hypertensive. The patient is seen today May 07, 2024 in follow-up on the regular medical floor. She is awake and alert in no acute distress. Maintaining good O2 saturation in the 90s on 2 L/min per nasal cannula. She has been afebrile. Hem odynamically stable. Procalcitonin negative at 0.05. Antibiotics discontinued. Continued on DuoNebs, Pulmicort, Singulair Solu-Medrol. NicoDerm patch in place. The patient is seen today May 08, 2024 in follow-up on the regular medical floor. She is currently sitting up in a chair at the bedside. Awake and alert in no acute distress. Maintaining good O2 saturations in the 90s on 2 L/min per nasal cannula. She is continued on DuoNeb and elations, Pulmicort inhalations, Solu-Medrol. NicoDerm patch in place. Lovenox for DVT prophylaxis. White count 5.1. Hemoglobin 15.0. Platelets 114. Sodium 137. Potassium 4.5. Bicarb 37. BUN 18. Creatinine 0.6. Glucose 168. The patient is seen today May 09, 2024 in follow-up on the regular medical floor. She is currently sitting up in a chair at the bedside. Awake and alert in no acute distress. She is maintaining O2 saturations in the 90s on 3 L/min per nasal cannula.. She is afebrile. Hemodynamically stable. White count 8.4. Hemoglobin 17.4. Platelets 155. Sodium 138. Potassium 4.9. Bicarb 38. BUN 19. Creatinine 0.8. Glucose 124. She remains on DuoNeb inhalations, Pulmicort inhalations, Solu-Medrol. NicoDerm patch in place. Lovenox for DVT prophylaxis. The patient is seen today May 10, 2024 in follow-up on the regular medical floor. She is currently resting comfortably in bed. Awake and alert in no acute distress. Maintaining good O2 saturations in the 90s on 2 L/min per nasal cannula. Carotid Dopplers revealed no significant stenosis. Blood culture revealed no growth. White count 6.6. Hemoglobin 15.3. Platelets 112. Sodium 138. Potassium 4.6. Bicarb 38. BUN 21. Creatinine 0.8. Glucose 133. She remains on DuoNeb inhalations, Symbicort, Singulair, Solu-Medrol. Lovenox for D VT prophylaxis. NicoDerm patch in place. Continued on Diamox. The patient is seen today May 11, 2024 in follow-up on the regular medical floor. She is currently sitting up in a chair. Awake and alert in no acute distress. Maintaining O2 saturations in the 90s on 4 L/min per nasal cannula. She states she did have a fall last evening. This was witnessed by the nurse project construction assistant manager and the patient legs gave out from under her while ambulating to the bathroom and she landed on her buttocks and rolled onto her back. Denies any significant injury. Head CT angiogram and CT angiography revealed no acute process. White count 7.2. Hemoglobin 15.7. Platelets 109. Sodium 146. Potassium 4.6. Bicarb 39. BUN 20. Creatinine 0.6. Glucose 93. She remains on DuoNeb inhalations, Symbicort, Singulair, prednisone. Lovenox for DVT prophylaxis. NicoDerm patch in place. Continued on Diamox. The patient is seen today May 12, 2024 in follow-up on the regular medical floor. She is currently resting in bed. Awake and alert in no acute distress. She is maintaining O2 saturation in the 90s on 4 L/min per nasal cannula. She sustained another fall yesterday. She states her legs are giving out on her. CT scan of the brain revealed no acute event. 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 Ophthalmology had been consulted. X-ray of the knees revealed no evidence of fracture. White count 11.7. Hemoglobin 15.4. Glucose 97. She is continued on Symbicort, DuoNebs, prednisone taper. NicoDerm patch in place. Lovenox for DVT prophylaxis. The patient is seen today May 20, 2024 in follow-up on the regular medical floor. She is currently sitting up in a chair. Awake and alert in no acute distress. Maintaining O2 saturations in the 90s on 3 L/min per nasal cannula. She is continued on DuoNeb and elations, Singulair, prednisone taper. NicoDerm patch in place. Lovenox for DVT prophylaxis. Blood cultures revealed no growth. White count 7.8. Hemoglobin 13.0. Platelets 152. Sodium 140. Potassium 4.3. Bicarb 30. BUN 11. Creatinine 0.5. Glucose 107. Objective - Vital Signs Vital signs: Vital Signs Temp 97.9 F 05/20/24 06:44 Pulse 82 05/20/24 11:49 Resp 16 05/20/24 10:43 BP 124/71 05/20/24 06:44 Pulse Ox 98 05/20/24 08:35 FiO2 Intake & Output 05/19/24 05/20/24 05/20/24 18:59 06:59 18:59 Intake Total 200 Balance 200 Weight 101 kg Intake: Oral 200 Other: Voiding Method Toilet Toilet # Voids 1 6 1 - Exam GENERAL EXAM: Alert, pleasant 69-year-old obese female, up in a chair, on 3 L/min per nasal cannula, in no apparent distress. HEAD: Normocephalic and atraumatic EYES: Normal reaction of pupils, equal size. NOSE: Clear with pink turbinates. THROAT: No erythema or exudates. NECK: No masses, no JVD. CHEST: No chest wall deformity. LUNGS: Equal air entry with faint wheezing and rhonchi heard bilaterally. CVS: S1 and S2 normal with no audible murmur, regular rhythm. No extra heart sounds ABDOMEN: No hepatosplenomegaly, active bowel sounds, no guarding or rigidity. SPINE: No scoliosis or deformity SKIN: No rashes CENTRAL NERVOUS SYSTEM: No focal deficits, tone is normal in all 4 extremities. EXTREMITIES: There is no peripheral edema, clubbing, or cyanosis. Peripheral pulses are intact. - Labs CBC & Chem 7: 05/20/24 03:33 05/20/24 03:33 Labs: Abnormal Lab Results - Last 24 Hours (Table) 05/20/24 05/20/24 Range/Units 03:33 03:33 RBC 4.07 L (4.10-5.20) X 10*6/uL MCV 103.2 H (80.0-97.0) FL MCHC 31.0 L (32.0-37.0) g/dL Immature Gran # 0.07 H (0.00-0.04) X 10*3/uL Eosinophils # 0.03 L (0.04-0.35) X 10*3/uL Creatinine 0.5 L (0.6-1.5) mg/dL BUN/Creatinine Ratio 22.20 H (12.00-20.00) Ratio Calcium 8.4 L (8.7-10.3) mg/dL Total Bilirubin <0.2 L (0.3-1.2) mg/dL Total Protein 5.2 L (6.2-8.2) g/dL Albumin 3.5 L (3.8-4.9) g/dL Assessment and Plan Assessment: Acute COPD exacerbation, improved Acute exacerbation of diastolic congestive heart failure; chest x-ray showing cardiomegaly and possible mild pulmonary vascular congestion. NT proBNP only mildly elevated at 581. Acute on chronic hypoxemic respiratory failure, secondary to above Chronic hypoxemic respiratory failure, normally maintained on 2 to 3 L on an outpatient basis Chronic ongoing tobacco dependence, with over [id number] history Hypertension History of GERD Morbid obesity, with BMI of 38.3 kg/m Post fall without injury 05/10/2024 and 05/11/2024 Plan: The patient was seen and evaluated Labs and medications reviewed Has home oxygen/breathing treatments Complete a prednisone taper Plan is for home with home care at discharge I have personally seen and examined the patient, performed the documentation and the assessment and plan as written. Number of minutes spent on the visit: 10. Dictation was produced using [employer] dictation software. Please excuse any grammatical, word or spelling errors.
== END 2024-05-20 15:13 | disposition home health service (06) | DRG 291 ==
LOC: EC 16:30 → 3SCARD 17:37 → 4SSUR 05-06 13:34
PROVIDERS: ADMIT Internal Medicine; ATTEND Internal Medicine
DX: I11.0 Hypertensive heart disease with heart failure (principal); I50.33 Acute on chronic diastolic (congestive) heart failure; J96.21 Acute and chronic respiratory failure with hypoxia; J96.22 Acute and chronic respiratory failure with hypercapnia; J45.21 Mild intermittent asthma with (acute) exacerbation; J44.1 Chronic obstructive pulmonary disease with (acute) exacerbation; E87.3 Alkalosis; I31.39 Other pericardial effusion (noninflammatory); K21.9 Gastro-esophageal reflux disease without esophagitis; M06.9 Rheumatoid arthritis, unspecified; Q27.9 Congenital malformation of peripheral vascular system, unspecified; G62.9 Polyneuropathy, unspecified; Z68.38 Body mass index [BMI] 38.0-38.9, adult; S09.90XA Unspecified injury of head, initial encounter; G25.3 Myoclonus; E66.01 Morbid (severe) obesity due to excess calories; E78.5 Hyperlipidemia, unspecified; F17.210 Nicotine dependence, cigarettes, uncomplicated; Z71.6 Tobacco abuse counseling; G89.29 Other chronic pain; M25.562 Pain in left knee; R35.0 Frequency of micturition; H53.8 Other visual disturbances; M25.561 Pain in right knee; M25.519 Pain in unspecified shoulder; R26.2 Difficulty in walking, not elsewhere classified; M19.90 Unspecified osteoarthritis, unspecified site; M54.2 Cervicalgia; H26.9 Unspecified cataract; H40.9 Unspecified glaucoma; W19.XXXA Unspecified fall, initial encounter; Y92.231 Patient bathroom in hospital as the place of occurrence of the external cause; Z91.81 History of falling; Z79.51 Long term (current) use of inhaled steroids; Z79.899 Other long term (current) drug therapy; Z96.643 Presence of artificial hip joint, bilateral; Z96.651 Presence of right artificial knee joint; Z99.81 Dependence on supplemental oxygen; Z86.73 Personal history of transient ischemic attack (TIA), and cerebral infarction without residual deficits; Z79.891 Long term (current) use of opiate analgesic
CPT/HCPCS: 36415; 70450; 70496; 70498; 70543; 70553; 71045; 72141; 80048; 80053; 80061; 82607; 82746; 83036; 83605; 83735; 83880; 84100; 84145; 84207; 84443; 84484; 85025; 85610; 85730; 87040; 87636; 93005; 93306; 93880; 94640; 94644; 94760; 96361; 96365; 96366; 96375; 99291